=== PATIENT | male | born 1985 | race Caucasian/White ===

== ENCOUNTER 2021-11-14 00:05 | Inpatient (IN) ==
[2021-11-14] MEDS ORDERED: Isovue-370 500 ML BOTTLE IVP ONE (00:52)
[2021-11-14] MEDS ORDERED: 0.9 % Sodium Chloride 1,500 ML IVC SCH (01:00)
[2021-11-14 01:38] LABS: VBG HCO3 26 mEq/L (21-27); VBG PCO2 40 mmHg (41-51); VBG PH 7.43 pH Units (7.32-7.42); VBG PO2 32 mmHg (25-50)
[2021-11-14] MEDS ORDERED: cefTRIAXone 1,000 MG in Water for inj. (sterile) 10 ML IVP ONE (01:42)
[2021-11-14] MEDS ORDERED: Azithromycin 500 MG in 0.9 % Sodium Chloride 250 ML IVPB ONE (01:42)
[2021-11-14] MEDS ORDERED: Vancomycin 1,500 MG/265 ML IV.SOLN IVPB ONE (01:43)
[2021-11-14 01:56] LABS: INR 1.8; Prothrombin Time 19.7 Seconds (9.4-12.1)
[2021-11-14 01:58] LABS: Activated Partial Thrombo Time 38.9 Seconds (26.0-36.0)
[2021-11-14 02:00] LABS: Alanine Aminotransferase 25 Units/L (7-52); Albumin 2.8 g/dL (3.5-5.7); Albumin/Globulin Ratio 0.6 (1.1-2.2); Alkaline Phosphatase 105 Units/L (34-104); Aspartate Amino Transferase 43 Units/L (13-39); BUN/Creatinine Ratio 23 (6-26); Blood Urea Nitrogen 23 mg/dL (6-20); Calcium 7.4 mg/dL (8.6-10.3); Carbon Dioxide 26 mEq/L (23-29); Chloride 81 mEq/L (98-107); Globulin 4.5 g/dL (2.4-3.5); Glucose 130 mg/dL (70-105); Magnesium 2.4 mg/dL (1.6-2.6); Osmolality,Calculated 249 (280-300); Potassium 3.5 mEq/L (3.5-5.1); Sodium 117 mEq/L (136-145); Total Protein 7.3 g/dL (6.4-8.9); Troponin I < 0.03 ng/mL (< 0.04); eGFR For African Americans > 60 (> 60); eGFR For Non-African Americans > 60 (> 60)
[2021-11-14 02:17] LABS: Hematocrit 32.9 % (37.5-50.1); Hemoglobin 11.2 g/dL (12.9-16.9); Mean Corpuscular Hemoglobin 27.5 pg (28.0-33.3); Mean Corpuscular Volume 80.8 fL (83.0-100.0); Mean Platelet Volume 11.6 fL (9.4-12.4); Platelet Count 157 K/mcL (140-400); Red Blood Count 4.07 M/mcL (4.19-5.50); White Blood Count 20.8 K/mcL (4.3-11.1)
[2021-11-14 02:18] LABS: Adenovirus Not Detected (Not Detect); Bordetella Pertussis Not Detected (Not Detect); Chlamydophila pneumoniae Not Detected (Not Detect); Coronavirus 229E Not Detected (Not Detect); Coronavirus HKU1 Not Detected (Not Detect); Coronavirus NL63 Not Detected (Not Detect); Coronavirus OC43 Not Detected (Not Detect); Human Metapneumovirus Not Detected (Not Detect); Human Rhinovirus/Enterovirus Not Detected (Not Detect); Influenza A Subtype 2009 H1 Not Detected (Not Detect); Influenza B Not Detected (Not Detect); Mycoplasma pneumoniae Not Detected (Not Detect); Parainfluenza Virus 1 Not Detected (Not Detect); Parainfluenza Virus 2 Not Detected (Not Detect); Parainfluenza Virus 3 Not Detected (Not Detect); Parainfluenza Virus 4 Not Detected (Not Detect); Respiratory Syncytial Virus Not Detected (Not Detect); SARS-CoV-2 Not Detected (Not Detect)
[2021-11-14 02:22] LABS: Ethanol < 10 mg/dL (Less than 10)
[2021-11-14 03:17] LABS: Lymphocytes # 1.3 K/mcL (0.6-4.6); Neutrophils # 19.6 K/mcL (1.6-8.9)
[2021-11-14 03:18] LABS: Platelet Estimate Normal (Normal); Reactive Lymphocytes Present (Not Present)
[2021-11-14] MEDS ORDERED: Naloxone 0.4 MG/ML INJ IVP PRN (03:21)
[2021-11-14] MEDS ORDERED: Perflutren Lipid Microsphere 1.3 ML in 0.9 % Sodium Chloride 8.7 ML IVP PRN (03:47)
[2021-11-14 04:33] LABS: Bacteria,Urine Few per hpf (None-Few); Bilirubin,Urine Negative (Negative); Blood,Urine Trace (Negative); Clarity,Urine Turbid (Clear); Color,Urine Yellow (Yellow); Glucose,Urine (UA) Normal (Normal); Ketones,Urine Negative (Negative); Leukocyte Esterase,Urine Small (Negative); Mucus,Urine Few per lpf (None-Few); Nitrite,Urine Negative (Negative); PH,Urine 5.5 pH Units (5.0-8.0); Protein,Urine 50 mg/dL (Neg-Trace); Squamous Epithelial Cell,Urine Few per hpf (None-Few); Urobilinogen,Urine Normal (Normal); WBC,Urine 30-50 per hpf (0-3)
[2021-11-14 04:34] LABS: Amphetamine Screen,Urine Negative ng/mL (Cutoff=1000); Barbiturate Screen,Urine Negative ng/mL (Cutoff=200); Benzodiazepines Screen,Urine Negative ng/mL (Cutoff=200); Cannabinoid Screen,Urine Negative ng/mL (Cutoff = 50); Cocaine Screen,Urine Negative ng/mL (Cutoff= 300); Opiate Screen,Urine Negative ng/mL (Cutoff=300); Phencyclidine Screen,Urine Negative ng/mL (Cutoff=25)
[2021-11-14] MEDS ORDERED: Calcium Gluconate 1gm/50mL 1 GM/50 ML BAG IVPB ONE (05:29)
[2021-11-14] MEDS ORDERED: 0.9 % Sodium Chloride 1,000 ML IVC SCH (05:45)
[2021-11-14 05:52] LABS: Chloride,Urine < 15 mEq/L
[2021-11-14 05:55] LABS: Hematocrit 28.5 % (37.5-50.1); Mean Corpuscular HGB Conc 35.1 g/dL (31.6-35.5); Mean Corpuscular Hemoglobin 27.7 pg (28.0-33.3); Mean Corpuscular Volume 78.9 fL (83.0-100.0); Mean Platelet Volume 11.9 fL (9.4-12.4); Neutrophils # 14.2 K/mcL (1.6-8.9); Nucleated Red Blood Cells 0.2 /100 WBC (0); Platelet Count 129 K/mcL (140-400); Red Blood Count 3.61 M/mcL (4.19-5.50); Red Cell Distribution Width 14.7 % (11.5-14.5); White Blood Count 18.2 K/mcL (4.3-11.1)
[2021-11-14 06:02] LABS: INR 1.7; Prothrombin Time 18.8 Seconds (9.4-12.1)
[2021-11-14 06:22] LABS: Lymphocytes # 3.3 K/mcL (0.6-4.6); Monocytes # 0.7 K/mcL (0.0-1.3)
[2021-11-14 06:25] LABS: Platelet Estimate Decreased (Normal)
[2021-11-14 06:46] LABS: Folate 7.4 ng/mL (3.0-16.0); Vitamin B12 849 pg/mL (250-1100)
[2021-11-14 06:48] LABS: Thyroid Stimulating Hormone 1.828 mcIU/mL (0.340-5.600); Troponin I 0.09 ng/mL (< 0.04)
[2021-11-14 07:11] LABS: Magnesium 2.4 mg/dL (1.6-2.6)
[2021-11-14 07:16] LABS: Hepatitis B Surface Antigen Nonreactive (Nonreactive)
[2021-11-14 07:46] LABS: Hepatitis A Antibody IgM Nonreactive (Nonreactive)
[2021-11-14 07:52] LABS: HIV-1&2 Antibody & p24 Ag Nonreactive (Nonreactive)
[2021-11-14] MEDS: *HR* Enoxaparin 40 MG/0.4 ML SYRINGE SQ SCH (08:05)
[2021-11-14 09:28] LABS: Hepatitis C Virus Antibody Reactive (Nonreactive)
[2021-11-14] MEDS: Cefepime HCl 2,000 MG in 0.9 % Sodium Chloride Mini Bag 100 ML IVPB SCH ×2 (10:30→17:50)
[2021-11-14 11:08] LABS: Estimated Average Glucose 114 mg/dl; Hemoglobin A1C 5.6 %
[2021-11-14 12:24] LABS: Rheumatoid Factor < 10 IU/mL (Less than 14)
[2021-11-14 12:30] LABS: BUN/Creatinine Ratio 33 (6-26); Blood Urea Nitrogen 21 mg/dL (6-20); Calcium 7.4 mg/dL (8.6-10.3); Carbon Dioxide 25 mEq/L (23-29); Chloride 92 mEq/L (98-107); Glucose 95 mg/dL (70-105); Osmolality,Calculated 263 (280-300); Potassium 3.8 mEq/L (3.5-5.1); Sodium 125 mEq/L (136-145); Troponin I < 0.03 ng/mL (< 0.04); eGFR For African Americans > 60 (> 60); eGFR For Non-African Americans > 60 (> 60)
[2021-11-14 12:31] LABS: Procalcitonin 2.06 ng/mL (0.00-0.15)
[2021-11-14 13:31] LABS: Complement C3 70 mg/dL (87-200)
[2021-11-14 13:54] LABS: Enterococcus faecalis by PCR Not Detected (Not Detect); Enterococcus faecium by PCR Not Detected (Not Detect); mecA/C & MREJ (MRSA) Gene Not Detected (Not Detect)
[2021-11-14 13:55] LABS: A.calcoaceticus-baumannii cplx Not Detected (Not Detect); Bacteroides fragilis by PCR Not Detected (Not Detect); Candida albicans by PCR Not Detected (Not Detect); Candida auris by PCR Not Detected (Not Detect); Candida glabrata by PCR Not Detected (Not Detect); Candida krusei by PCR Not Detected (Not Detect); Candida parapsilosis by PCR Not Detected (Not Detect); Candida tropicalis by PCR Not Detected (Not Detect); Crypto. neoformans/gattii PCR Not Detected (Not Detect); Enterobacter cloacae Cmplx PCR Not Detected (Not Detect); Enterobacterales by PCR Not Detected (Not Detect); Escherichia coli by PCR Not Detected (Not Detect); Klebs. pneumoniae group by PCR Not Detected (Not Detect); Klebsiella aerogenes by PCR Not Detected (Not Detect); Klebsiella oxytoca by PCR Not Detected (Not Detect); Proteus by PCR Not Detected (Not Detect); Pseudomonas aeruginosa by PCR Not Detected (Not Detect); Salmonella species by PCR Not Detected (Not Detect); Serratia marcescens by PCR Not Detected (Not Detect); Staph epidermidis by PCR Not Detected (Not Detect); Staph lugdunensis by PCR Not Detected (Not Detect); Staphylococcus aureus by PCR DETECTED (Not Detect); Stenotrophomonas maltophilia Not Detected (Not Detect); Streptococcus agalactiae(B)PCR Not Detected (Not Detect); Streptococcus by PCR Not Detected (Not Detect); Streptococcus pneumoniae PCR Not Detected (Not Detect); Streptococcus pyogenes (A) PCR Not Detected (Not Detect)
[2021-11-14] MEDS: Vancomycin 1,500 MG/265 ML IV.SOLN IVPB SCH (14:05)
[2021-11-14 17:51] LABS: BUN/Creatinine Ratio 30 (6-26); Blood Urea Nitrogen 19 mg/dL (6-20); Carbon Dioxide 27 mEq/L (23-29); Chloride 94 mEq/L (98-107); Glucose 124 mg/dL (70-105); Osmolality,Calculated 266 (280-300); Potassium 3.7 mEq/L (3.5-5.1); Sodium 126 mEq/L (136-145); eGFR For African Americans > 60 (> 60); eGFR For Non-African Americans > 60 (> 60)
[2021-11-14 18:45] LABS: VBG HCO3 25 mEq/L (21-27); VBG PCO2 37 mmHg (41-51); VBG PH 7.43 pH Units (7.32-7.42); VBG PO2 140 mmHg (25-50)
[2021-11-14 18:53] LABS: ABG Base Excess 0 mEq/L (-2 to 3); ABG HCO3 24 mEq/L (21-27); ABG Oxygen Saturation 95 % (95-98); ABG PCO2 34 mmHg (35-45); ABG PH 7.45 pH Units (7.32-7.45); ABG PO2 72 mmHg (85-104); ABG TCO2 25 mEq/L (20-26)
[2021-11-14] MEDS: Acetaminophen 325 MG TABLET PO PRN (20:08)
[2021-11-14 23:31] LABS: BUN/Creatinine Ratio 29 (6-26); Blood Urea Nitrogen 23 mg/dL (6-20); Calcium 7.3 mg/dL (8.6-10.3); Carbon Dioxide 24 mEq/L (23-29); Chloride 93 mEq/L (98-107); Glucose 134 mg/dL (70-105); Osmolality,Calculated 262 (280-300); Potassium 3.6 mEq/L (3.5-5.1); Sodium 123 mEq/L (136-145); eGFR For African Americans > 60 (> 60); eGFR For Non-African Americans > 60 (> 60)
[2021-11-15] MEDS: Vancomycin 1,500 MG/265 ML IV.SOLN IVPB SCH (02:42)
[2021-11-15] MEDS: Cefepime HCl 2,000 MG in 0.9 % Sodium Chloride Mini Bag 100 ML IVPB SCH ×2 (02:42→09:17)
[2021-11-15 06:05] LABS: Hematocrit 28.1 % (37.5-50.1); Mean Corpuscular HGB Conc 35.6 g/dL (31.6-35.5); Mean Corpuscular Volume 78.7 fL (83.0-100.0); Mean Platelet Volume 12.1 fL (9.4-12.4); Platelet Count 174 K/mcL (140-400); Red Blood Count 3.57 M/mcL (4.19-5.50); Red Cell Distribution Width 15.2 % (11.5-14.5); White Blood Count 21.2 K/mcL (4.3-11.1)
[2021-11-15 06:14] LABS: INR 1.5; Prothrombin Time 16.6 Seconds (9.4-12.1)
[2021-11-15 06:21] LABS: BUN/Creatinine Ratio 36 (6-26); Blood Urea Nitrogen 25 mg/dL (6-20); Calcium 7.2 mg/dL (8.6-10.3); Carbon Dioxide 22 mEq/L (23-29); Chloride 97 mEq/L (98-107); Glucose 110 mg/dL (70-105); Osmolality,Calculated 267 (280-300); Potassium 3.6 mEq/L (3.5-5.1); Sodium 126 mEq/L (136-145); eGFR For African Americans > 60 (> 60); eGFR For Non-African Americans > 60 (> 60)
[2021-11-15 06:26] LABS: BUN/Creatinine Ratio 36 (6-26); Blood Urea Nitrogen 25 mg/dL (6-20); Calcium 7.1 mg/dL (8.6-10.3); Carbon Dioxide 21 mEq/L (23-29); Chloride 96 mEq/L (98-107); Glucose 107 mg/dL (70-105); Osmolality,Calculated 267 (280-300); Potassium 4.4 mEq/L (3.5-5.1); Sodium 126 mEq/L (136-145); eGFR For African Americans > 60 (> 60); eGFR For Non-African Americans > 60 (> 60)
[2021-11-15] MEDS: *HR* Enoxaparin 40 MG/0.4 ML SYRINGE SQ SCH (09:18)
[2021-11-15] MEDS: Acetaminophen 325 MG TABLET PO PRN ×2 (09:20→17:02)
[2021-11-15] MEDS ORDERED: 0.9 % Sodium Chloride 1,000 ML ONE (10:23)
[2021-11-15 10:41] LABS: Amylase 39 Units/L (29-103); BUN/Creatinine Ratio 32 (6-26); Blood Urea Nitrogen 23 mg/dL (6-20); Calcium 7.1 mg/dL (8.6-10.3); Carbon Dioxide 25 mEq/L (23-29); Chloride 97 mEq/L (98-107); Glucose 114 mg/dL (70-105); Lipase 40 Units/L (11-82); Osmolality,Calculated 267 (280-300); Potassium 3.6 mEq/L (3.5-5.1); Sodium 126 mEq/L (136-145); eGFR For African Americans > 60 (> 60); eGFR For Non-African Americans > 60 (> 60)
[2021-11-15] MEDS: 0.9 % Sodium Chloride 1,000 ML IVC SCH (11:47)
[2021-11-15] MEDS: ceFAZolin 2,000 MG in 0.9 % Sodium Chloride 100 ML IVPB SCH (15:59)
[2021-11-15] MEDS ORDERED: *HR* LORazepam 0.5 MG TABLET PO ONE (17:01)
[2021-11-15 17:36] LABS: Amphetamine Screen,Urine Negative ng/mL (Cutoff=1000); Barbiturate Screen,Urine Negative ng/mL (Cutoff=200); Benzodiazepines Screen,Urine Negative ng/mL (Cutoff=200); Cannabinoid Screen,Urine Negative ng/mL (Cutoff = 50); Cocaine Screen,Urine Negative ng/mL (Cutoff= 300); Opiate Screen,Urine Positive ng/mL (Cutoff=300); Phencyclidine Screen,Urine Negative ng/mL (Cutoff=25)
[2021-11-15 18:15] LABS: Hepatitis B Core IgM Nonreactive (Nonreactive)
[2021-11-16] MEDS: ceFAZolin 2,000 MG in 0.9 % Sodium Chloride 100 ML IVPB SCH ×3 (01:52→15:13)
[2021-11-16] MEDS: 0.9 % Sodium Chloride 1,000 ML IVC SCH ×2 (01:52→15:12)
[2021-11-16 04:16] LABS: Basophils % 0.2 %; Eosinophils % 0.2 %; Hematocrit 25.5 % (37.5-50.1); Hemoglobin 8.6 g/dL (12.9-16.9); Immature Granulocytes % 1.8 % (0-4); Lymphocytes # 2.6 K/mcL (0.6-4.6); Lymphocytes % 14.8 %; Mean Corpuscular HGB Conc 33.7 g/dL (31.6-35.5); Mean Corpuscular Volume 79.9 fL (83.0-100.0); Mean Platelet Volume 10.9 fL (9.4-12.4); Monocytes # 0.9 K/mcL (0.0-1.3); Monocytes % 5.1 %; Neutrophils # 13.9 K/mcL (1.6-8.9); Platelet Count 231 K/mcL (140-400); Red Blood Count 3.19 M/mcL (4.19-5.50); Red Cell Distribution Width 15.7 % (11.5-14.5); Segmented Neutrophils % 77.9 %; White Blood Count 17.8 K/mcL (4.3-11.1)
[2021-11-16 04:39] LABS: BUN/Creatinine Ratio 25 (6-26); Blood Urea Nitrogen 18 mg/dL (6-20); Calcium 6.9 mg/dL (8.6-10.3); Carbon Dioxide 22 mEq/L (23-29); Chloride 98 mEq/L (98-107); Glucose 103 mg/dL (70-105); Hypochromasia Present (Not Present); Osmolality,Calculated 266 (280-300); Potassium 3.4 mEq/L (3.5-5.1); Sodium 127 mEq/L (136-145); eGFR For African Americans > 60 (> 60); eGFR For Non-African Americans > 60 (> 60)
[2021-11-16 04:40] LABS: Albumin 1.9 g/dL (3.5-5.7); Albumin/Globulin Ratio 0.5 (1.1-2.2); Bilirubin,Direct 0.2 mg/dL (0.0-0.2); Bilirubin,Indirect 0.5 mg/dL (0.0-1.0); Bilirubin,Total 0.7 mg/dL (0.3-1.0); Platelet Estimate Normal (Normal); Reactive Lymphocytes Present (Not Present); Total Protein 5.9 g/dL (6.4-8.9)
[2021-11-16] MEDS ORDERED: *HR* LORazepam 0.5 MG TABLET PO ONE (08:48)
[2021-11-16] MEDS: *HR* Enoxaparin 40 MG/0.4 ML SYRINGE SQ SCH (09:36)
[2021-11-16] MEDS ORDERED: Acetaminophen IV 1,000 MG/100 ML BAG IVPB ONE (10:26)
[2021-11-16] MEDS: *HR* LORazepam 1 MG TABLET PO SCH ×2 (15:14→21:17)
[2021-11-16] MEDS ORDERED: cloNIDine HCL 0.1 MG TABLET PO PRN (17:31)
[2021-11-16] MEDS: cloNIDine HCL 0.1 MG TABLET PO PRN ×2 (17:58→20:05)
[2021-11-16] MEDS: *HR* LORazepam 2 MG/ML VIAL IVP PRN (18:37)
[2021-11-16] MEDS: Acetaminophen 325 MG TABLET PO PRN (18:41)
[2021-11-16] MEDS ORDERED: Calcium Gluconate 1gm/50mL 1 GM/50 ML BAG IVPB ONE (20:30)
[2021-11-17] MEDS: ceFAZolin 2,000 MG in 0.9 % Sodium Chloride 100 ML IVPB SCH ×3 (00:02→16:31)
[2021-11-17] MEDS: 0.9 % Sodium Chloride 1,000 ML IVC SCH ×2 (04:18→16:31)
[2021-11-17 04:33] LABS: Basophils % 0.2 %; Eosinophils # 0.1 K/mcL (0.0-0.6); Eosinophils % 0.3 %; Hematocrit 25.5 % (37.5-50.1); Hemoglobin 8.4 g/dL (12.9-16.9); Immature Granulocytes % 1.3 % (0-4); Lymphocytes # 2.5 K/mcL (0.6-4.6); Lymphocytes % 15.9 %; Mean Corpuscular HGB Conc 32.9 g/dL (31.6-35.5); Mean Corpuscular Hemoglobin 26.6 pg (28.0-33.3); Mean Corpuscular Volume 80.7 fL (83.0-100.0); Mean Platelet Volume 10.1 fL (9.4-12.4); Monocytes # 0.6 K/mcL (0.0-1.3); Monocytes % 3.7 %; Platelet Count 318 K/mcL (140-400); Red Blood Count 3.16 M/mcL (4.19-5.50); Red Cell Distribution Width 15.6 % (11.5-14.5); Segmented Neutrophils % 78.6 %; White Blood Count 15.7 K/mcL (4.3-11.1)
[2021-11-17 04:39] LABS: Neutrophils # 12.3 K/mcL (1.6-8.9)
[2021-11-17 04:42] LABS: INR 1.5; Prothrombin Time 16.9 Seconds (9.4-12.1)
[2021-11-17 04:44] LABS: Activated Partial Thrombo Time 39.5 Seconds (26.0-36.0)
[2021-11-17 04:55] LABS: BUN/Creatinine Ratio 23 (6-26); Blood Urea Nitrogen 18 mg/dL (6-20); Calcium 6.7 mg/dL (8.6-10.3); Carbon Dioxide 21 mEq/L (23-29); Chloride 103 mEq/L (98-107); Glucose 102 mg/dL (70-105); Osmolality,Calculated 264 (280-300); Platelet Estimate Normal (Normal); Potassium 4.1 mEq/L (3.5-5.1); Reactive Lymphocytes Present (Not Present); Sodium 126 mEq/L (136-145); eGFR For African Americans > 60 (> 60); eGFR For Non-African Americans > 60 (> 60)
[2021-11-17] MEDS: Acetaminophen 325 MG TABLET PO PRN (05:03)
[2021-11-17] MEDS: *HR* LORazepam 2 MG/ML VIAL IVP PRN (05:26)
[2021-11-17] MEDS ORDERED: *HR* LORazepam 2 MG/ML VIAL IVP ONE (06:23)
[2021-11-17] MEDS ORDERED: Norepinephrine 4 MG in 0.9 % Sodium Chloride 250 ML IVC PRN (07:45)
[2021-11-17] MEDS ORDERED: del Nido Cardioplegia Solution PF SCH (07:45)
[2021-11-17] MEDS ORDERED: Heparin 15,000 UNIT in 0.9 % Sodium Chloride 500 ML IV ONE (07:45)
[2021-11-17] MEDS ORDERED: Buckersberg's Blood Cardioplegia PF SCH (07:45)
[2021-11-17] MEDS ORDERED: del Nido Cardioplegia Solution PF ONE (08:00)
[2021-11-17] MEDS: *HR* LORazepam 1 MG TABLET PO SCH (08:28)
[2021-11-17] MEDS: *HR* Enoxaparin 40 MG/0.4 ML SYRINGE SQ SCH (08:28)
[2021-11-17 10:22] LABS: Alanine Aminotransferase 18 Units/L (7-52); Albumin 1.8 g/dL (3.5-5.7); Albumin/Globulin Ratio 0.5 (1.1-2.2); Alkaline Phosphatase 70 Units/L (34-104); Aspartate Amino Transferase 43 Units/L (13-39); Bilirubin,Direct 0.3 mg/dL (0.0-0.2); Bilirubin,Indirect 0.4 mg/dL (0.0-1.0); Bilirubin,Total 0.7 mg/dL (0.3-1.0); Globulin 3.9 g/dL (2.4-3.5); Total Protein 5.7 g/dL (6.4-8.9)
[2021-11-17 12:39] LABS: ANA IgG by ELISA NONE DETECTED (None Detected); Kappa Qnt Free Light Chains 112.18 mg/L (3.30-19.40); Lambda Qnt Free Light Chains 101.51 mg/L (5.71-26.30)
[2021-11-17] MEDS: Lactobacillus 1 EACH CAP.SPRINK PO SCH (20:48)
[2021-11-17] MEDS ORDERED: Dextrose 4 GM Chewable Tablets PO PRN ×2 (21:53)
[2021-11-17] MEDS ORDERED: D5% in Water 1,000 ML IVC PRN (21:53)
[2021-11-17] MEDS ORDERED: *HR* Dextrose 50 % in Water (Syg) 50 ML SYRINGE IVP PRN (21:53)
[2021-11-18] MEDS: ceFAZolin 2,000 MG in 0.9 % Sodium Chloride 100 ML IVPB SCH ×4 (00:42→23:11)
[2021-11-18 03:15] LABS: Basophils % 0.1 %; Eosinophils # 0.1 K/mcL (0.0-0.6); Eosinophils % 0.4 %; Hematocrit 24.7 % (37.5-50.1); Hemoglobin 8.4 g/dL (12.9-16.9); Immature Granulocytes % 1.4 % (0-4); Lymphocytes # 2.7 K/mcL (0.6-4.6); Lymphocytes % 19.1 %; Mean Corpuscular Hemoglobin 27.8 pg (28.0-33.3); Mean Corpuscular Volume 81.8 fL (83.0-100.0); Mean Platelet Volume 10.5 fL (9.4-12.4); Monocytes # 0.5 K/mcL (0.0-1.3); Monocytes % 3.9 %; Platelet Count 389 K/mcL (140-400); Red Blood Count 3.02 M/mcL (4.19-5.50); Segmented Neutrophils % 75.1 %; White Blood Count 13.9 K/mcL (4.3-11.1)
[2021-11-18 03:23] LABS: Neutrophils # 10.4 K/mcL (1.6-8.9)
[2021-11-18 03:32] LABS: BUN/Creatinine Ratio 30 (6-26); Blood Urea Nitrogen 21 mg/dL (6-20); Calcium 6.9 mg/dL (8.6-10.3); Carbon Dioxide 20 mEq/L (23-29); Chloride 103 mEq/L (98-107); Glucose 100 mg/dL (70-105); Osmolality,Calculated 273 (280-300); Potassium 4.3 mEq/L (3.5-5.1); Sodium 130 mEq/L (136-145); eGFR For African Americans > 60 (> 60); eGFR For Non-African Americans > 60 (> 60)
[2021-11-18 04:06] LABS: Reactive Lymphocytes Present (Not Present)
[2021-11-18 04:07] LABS: Hypochromasia Present (Not Present); Platelet Estimate Normal (Normal); Toxic Granulation Present (Not Present)
[2021-11-18] MEDS: 0.9 % Sodium Chloride 1,000 ML IVC SCH ×2 (06:34→19:47)
[2021-11-18] MEDS: Lactobacillus 1 EACH CAP.SPRINK PO SCH ×2 (09:41→23:10)
[2021-11-18] MEDS: Chlorhexidine Rinse 15 ML MOUTHWASH MM SCH ×2 (09:41→20:29)
[2021-11-18] MEDS: Nicotine 21 MG PATCH.TD24 TD SCH (09:41)
[2021-11-18] MEDS: *HR* Enoxaparin 40 MG/0.4 ML SYRINGE SQ SCH (09:41)
[2021-11-18] MEDS: *HR* LORazepam 2 MG/ML VIAL IVP PRN (11:32)
[2021-11-18] MEDS: cloNIDine HCL 0.1 MG TABLET PO PRN (15:54)
[2021-11-18] MEDS: Acetaminophen 325 MG TABLET PO PRN (20:27)
[2021-11-19 01:36] LABS: ANCA IFA Titer <1:20 (<1:20)
[2021-11-19] MEDS: cloNIDine HCL 0.1 MG TABLET PO PRN ×4 (01:46→17:39)
[2021-11-19 05:33] LABS: Hematocrit 28.4 % (37.5-50.1); Hemoglobin 9.3 g/dL (12.9-16.9); Immature Granulocytes % 1.2 % (0-4); Mean Corpuscular HGB Conc 32.7 g/dL (31.6-35.5); Mean Corpuscular Hemoglobin 27.1 pg (28.0-33.3); Mean Corpuscular Volume 82.8 fL (83.0-100.0); Mean Platelet Volume 9.7 fL (9.4-12.4); Platelet Count 443 K/mcL (140-400); Red Blood Count 3.43 M/mcL (4.19-5.50); Red Cell Distribution Width 16.2 % (11.5-14.5); Segmented Neutrophils % 78.6 %
[2021-11-19 05:34] LABS: Basophils % 0.2 %; Eosinophils # 0.1 K/mcL (0.0-0.6); Eosinophils % 0.5 %; Lymphocytes # 2.5 K/mcL (0.6-4.6); Lymphocytes % 16.4 %; Monocytes # 0.5 K/mcL (0.0-1.3); Monocytes % 3.1 %; Neutrophils # 11.8 K/mcL (1.6-8.9)
[2021-11-19 05:57] LABS: Anisocytosis 1+ (Not Present); Hypochromasia Present (Not Present); Platelet Estimate Normal (Normal)
[2021-11-19 06:26] LABS: BUN/Creatinine Ratio 39 (6-26); Blood Urea Nitrogen 27 mg/dL (6-20); Calcium 6.8 mg/dL (8.6-10.3); Carbon Dioxide 20 mEq/L (23-29); Chloride 105 mEq/L (98-107); Glucose 116 mg/dL (70-105); Osmolality,Calculated 276 (280-300); Potassium 4.2 mEq/L (3.5-5.1); Sodium 130 mEq/L (136-145); eGFR For African Americans > 60 (> 60); eGFR For Non-African Americans > 60 (> 60)
[2021-11-19] MEDS: *HR* Enoxaparin 40 MG/0.4 ML SYRINGE SQ SCH (08:01)
[2021-11-19] MEDS: Chlorhexidine Rinse 15 ML MOUTHWASH MM SCH ×2 (08:02→20:19)
[2021-11-19] MEDS: Lactobacillus 1 EACH CAP.SPRINK PO SCH ×2 (08:02→20:19)
[2021-11-19] MEDS: ceFAZolin 2,000 MG in 0.9 % Sodium Chloride 100 ML IVPB SCH ×3 (08:40→22:52)
[2021-11-19] MEDS: 0.9 % Sodium Chloride 1,000 ML IVC SCH (08:40)
[2021-11-19] MEDS: Nicotine 21 MG PATCH.TD24 TD SCH (09:00)
[2021-11-19] MEDS ORDERED: *HR* LORazepam 2 MG/ML VIAL IVP PRN (10:29)
[2021-11-19 12:27] LABS: C-Reactive Protein 79 mg/L (Less than 10)
[2021-11-19] MEDS: Ondansetron 4 MG/2 ML VIAL IVP PRN (17:39)
[2021-11-20 00:51] LABS: Basophils % 0.1 %; Eosinophils # 0.1 K/mcL (0.0-0.6); Eosinophils % 0.7 %; Hematocrit 24.2 % (37.5-50.1); Hemoglobin 7.9 g/dL (12.9-16.9); Immature Granulocytes % 1.1 % (0-4); Lymphocytes # 2.5 K/mcL (0.6-4.6); Lymphocytes % 21.6 %; Mean Corpuscular HGB Conc 32.6 g/dL (31.6-35.5); Mean Corpuscular Hemoglobin 27.3 pg (28.0-33.3); Mean Corpuscular Volume 83.7 fL (83.0-100.0); Mean Platelet Volume 9.7 fL (9.4-12.4); Monocytes # 0.4 K/mcL (0.0-1.3); Monocytes % 3.6 %; Neutrophils # 8.5 K/mcL (1.6-8.9); Platelet Count 364 K/mcL (140-400); Red Blood Count 2.89 M/mcL (4.19-5.50); Red Cell Distribution Width 16.4 % (11.5-14.5); Segmented Neutrophils % 72.9 %; White Blood Count 11.6 K/mcL (4.3-11.1)
[2021-11-20 01:08] LABS: BUN/Creatinine Ratio 31 (6-26); Blood Urea Nitrogen 18 mg/dL (6-20); Calcium 6.8 mg/dL (8.6-10.3); Carbon Dioxide 21 mEq/L (23-29); Chloride 105 mEq/L (98-107); Glucose 114 mg/dL (70-105); Osmolality,Calculated 275 (280-300); Potassium 4.4 mEq/L (3.5-5.1); Sodium 131 mEq/L (136-145); eGFR For African Americans > 60 (> 60); eGFR For Non-African Americans > 60 (> 60)
[2021-11-20] MEDS: ceFAZolin 2,000 MG in 0.9 % Sodium Chloride 100 ML IVPB SCH ×2 (08:28→17:26)
[2021-11-20] MEDS: Lactobacillus 1 EACH CAP.SPRINK PO SCH ×2 (08:28→20:08)
[2021-11-20] MEDS: *HR* Enoxaparin 40 MG/0.4 ML SYRINGE SQ SCH (08:28)
[2021-11-20] MEDS: Chlorhexidine Rinse 15 ML MOUTHWASH MM SCH ×2 (08:28→21:00)
[2021-11-20] MEDS: Nicotine 21 MG PATCH.TD24 TD SCH (08:30)
[2021-11-20] MEDS ORDERED: Simethicone 80 MG TAB.CHEW PO PRN (09:22)
[2021-11-20 11:09] LABS: ANCA IFA Pattern NONE DETECTED (None Detected); Serine Protease-3 Antibody 1 AU/mL (0-19)
[2021-11-20 12:26] LABS: Hematocrit 25.3 % (37.5-50.1); Hemoglobin 8.2 g/dL (12.9-16.9)
[2021-11-20] MEDS: cloNIDine HCL 0.1 MG TABLET PO PRN (20:08)
[2021-11-20] MEDS ORDERED: hydrOXYzine pamoate 25 MG CAPSULE PO ONE (23:25)
[2021-11-21] MEDS: ceFAZolin 2,000 MG in 0.9 % Sodium Chloride 100 ML IVPB SCH ×3 (00:02→15:28)
[2021-11-21 04:03] LABS: Basophils % 0.2 %; Eosinophils # 0.1 K/mcL (0.0-0.6); Eosinophils % 0.6 %; Hemoglobin 8.3 g/dL (12.9-16.9); Immature Granulocytes % 1.1 % (0-4); Lymphocytes # 2.9 K/mcL (0.6-4.6); Lymphocytes % 23.5 %; Mean Corpuscular HGB Conc 33.2 g/dL (31.6-35.5); Mean Corpuscular Hemoglobin 27.5 pg (28.0-33.3); Mean Corpuscular Volume 82.8 fL (83.0-100.0); Mean Platelet Volume 9.7 fL (9.4-12.4); Monocytes # 0.4 K/mcL (0.0-1.3); Monocytes % 3.3 %; Neutrophils # 8.8 K/mcL (1.6-8.9); Nucleated Red Blood Cells 0.6 /100 WBC (0); Platelet Count 376 K/mcL (140-400); Red Blood Count 3.02 M/mcL (4.19-5.50); Red Cell Distribution Width 16.3 % (11.5-14.5); Segmented Neutrophils % 71.3 %; White Blood Count 12.4 K/mcL (4.3-11.1)
[2021-11-21 04:13] LABS: BUN/Creatinine Ratio 20 (6-26); Blood Urea Nitrogen 10 mg/dL (6-20); Calcium 7.4 mg/dL (8.6-10.3); Carbon Dioxide 22 mEq/L (23-29); Chloride 104 mEq/L (98-107); Glucose 96 mg/dL (70-105); Osmolality,Calculated 271 (280-300); Potassium 4.8 mEq/L (3.5-5.1); Sodium 131 mEq/L (136-145); eGFR For African Americans > 60 (> 60); eGFR For Non-African Americans > 60 (> 60)
[2021-11-21] MEDS: Lactobacillus 1 EACH CAP.SPRINK PO SCH ×2 (09:16→21:22)
[2021-11-21] MEDS: Nicotine 21 MG PATCH.TD24 TD SCH (09:16)
[2021-11-21] MEDS: *HR* Enoxaparin 40 MG/0.4 ML SYRINGE SQ SCH (09:17)
[2021-11-21] MEDS: Chlorhexidine Rinse 15 ML MOUTHWASH MM SCH ×2 (09:17→21:22)
[2021-11-22] MEDS: ceFAZolin 2,000 MG in 0.9 % Sodium Chloride 100 ML IVPB SCH ×3 (00:24→16:16)
[2021-11-22 05:26] LABS: Basophils % 0.2 %; Eosinophils # 0.1 K/mcL (0.0-0.6); Eosinophils % 0.7 %; Hematocrit 22.7 % (37.5-50.1); Hemoglobin 7.4 g/dL (12.9-16.9); Immature Granulocytes % 0.9 % (0-4); Lymphocytes # 2.4 K/mcL (0.6-4.6); Lymphocytes % 19.5 %; Mean Corpuscular HGB Conc 32.6 g/dL (31.6-35.5); Mean Corpuscular Hemoglobin 27.8 pg (28.0-33.3); Mean Corpuscular Volume 85.3 fL (83.0-100.0); Monocytes # 0.5 K/mcL (0.0-1.3); Monocytes % 3.9 %; Neutrophils # 9.2 K/mcL (1.6-8.9); Platelet Count 402 K/mcL (140-400); Red Blood Count 2.66 M/mcL (4.19-5.50); Red Cell Distribution Width 16.7 % (11.5-14.5); Segmented Neutrophils % 74.8 %; White Blood Count 12.3 K/mcL (4.3-11.1)
[2021-11-22 08:32] LABS: BUN/Creatinine Ratio 16 (6-26); Blood Urea Nitrogen 9 mg/dL (6-20); Calcium 7.2 mg/dL (8.6-10.3); Carbon Dioxide 27 mEq/L (23-29); Chloride 103 mEq/L (98-107); Glucose 103 mg/dL (70-105); Osmolality,Calculated 275 (280-300); Potassium 4.3 mEq/L (3.5-5.1); Sodium 133 mEq/L (136-145); eGFR For African Americans > 60 (> 60); eGFR For Non-African Americans > 60 (> 60)
[2021-11-22] MEDS: Lactobacillus 1 EACH CAP.SPRINK PO SCH ×2 (08:35→20:20)
[2021-11-22] MEDS: *HR* Enoxaparin 40 MG/0.4 ML SYRINGE SQ SCH (08:36)
[2021-11-22] MEDS: Chlorhexidine Rinse 15 ML MOUTHWASH MM SCH (08:36)
[2021-11-22] MEDS: Nicotine 21 MG PATCH.TD24 TD SCH (08:38)
[2021-11-22] MEDS: Ondansetron 4 MG/2 ML VIAL IVP PRN (11:22)
[2021-11-22 17:35] LABS: Hematocrit 33.5 % (37.5-50.1)
[2021-11-22 17:37] LABS: Hemoglobin 11.1 g/dL (12.9-16.9)
[2021-11-23] MEDS: ceFAZolin 2,000 MG in 0.9 % Sodium Chloride 100 ML IVPB SCH ×3 (00:12→16:10)
[2021-11-23 01:48] LABS: Basophils # 0.1 K/mcL (0.0-0.2); Basophils % 0.3 %; Eosinophils % 0.1 %; Hemoglobin 9.3 g/dL (12.9-16.9); Immature Granulocytes % 1.6 % (0-4); Lymphocytes # 2.7 K/mcL (0.6-4.6); Lymphocytes % 14.6 %; Mean Corpuscular HGB Conc 33.2 g/dL (31.6-35.5); Mean Corpuscular Hemoglobin 28.2 pg (28.0-33.3); Mean Corpuscular Volume 84.8 fL (83.0-100.0); Mean Platelet Volume 10.4 fL (9.4-12.4); Monocytes # 0.6 K/mcL (0.0-1.3); Monocytes % 3.4 %; Neutrophils # 14.9 K/mcL (1.6-8.9); Platelet Count 515 K/mcL (140-400); White Blood Count 18.6 K/mcL (4.3-11.1)
[2021-11-23 01:51] LABS: BUN/Creatinine Ratio 23 (6-26); Blood Urea Nitrogen 15 mg/dL (6-20); Calcium 7.2 mg/dL (8.6-10.3); Carbon Dioxide 23 mEq/L (23-29); Chloride 102 mEq/L (98-107); Glucose 105 mg/dL (70-105); Osmolality,Calculated 275 (280-300); Sodium 132 mEq/L (136-145); eGFR For African Americans > 60 (> 60); eGFR For Non-African Americans > 60 (> 60)
[2021-11-23] MEDS: Lactobacillus 1 EACH CAP.SPRINK PO SCH ×2 (08:31→20:55)
[2021-11-23] MEDS: *HR* Enoxaparin 40 MG/0.4 ML SYRINGE SQ SCH (08:34)
[2021-11-23] MEDS: Nicotine 21 MG PATCH.TD24 TD SCH (08:34)
[2021-11-24] MEDS: ceFAZolin 2,000 MG in 0.9 % Sodium Chloride 100 ML IVPB SCH ×3 (00:13→17:15)
[2021-11-24 00:48] LABS: Basophils % 0.1 %; Eosinophils # 0.1 K/mcL (0.0-0.6); Eosinophils % 0.8 %; Hematocrit 23.5 % (37.5-50.1); Immature Granulocytes % 0.9 % (0-4); Lymphocytes % 21.6 %; Mean Corpuscular HGB Conc 32.3 g/dL (31.6-35.5); Mean Corpuscular Hemoglobin 27.9 pg (28.0-33.3); Mean Corpuscular Volume 86.4 fL (83.0-100.0); Mean Platelet Volume 9.8 fL (9.4-12.4); Monocytes # 0.7 K/mcL (0.0-1.3); Monocytes % 4.9 %; Neutrophils # 9.9 K/mcL (1.6-8.9); Platelet Count 497 K/mcL (140-400); Red Blood Count 2.72 M/mcL (4.19-5.50); Red Cell Distribution Width 17.3 % (11.5-14.5); Segmented Neutrophils % 71.7 %; White Blood Count 13.8 K/mcL (4.3-11.1)
[2021-11-24 00:49] LABS: Hemoglobin 7.6 g/dL (12.9-16.9)
[2021-11-24 01:04] LABS: BUN/Creatinine Ratio 24 (6-26); Blood Urea Nitrogen 14 mg/dL (6-20); Calcium 7.2 mg/dL (8.6-10.3); Carbon Dioxide 27 mEq/L (23-29); Chloride 103 mEq/L (98-107); Glucose 102 mg/dL (70-105); Osmolality,Calculated 277 (280-300); Potassium 4.2 mEq/L (3.5-5.1); Sodium 133 mEq/L (136-145); eGFR For African Americans > 60 (> 60); eGFR For Non-African Americans > 60 (> 60)
[2021-11-24 06:30] LABS: Basophils % 0.1 %; Eosinophils # 0.1 K/mcL (0.0-0.6); Eosinophils % 0.7 %; Hematocrit 23.9 % (37.5-50.1); Hemoglobin 7.6 g/dL (12.9-16.9); Immature Granulocytes % 0.7 % (0-4); Immature Platelets 2.8 % (1.1-6.1); Lymphocytes # 2.6 K/mcL (0.6-4.6); Lymphocytes % 21.8 %; Mean Corpuscular HGB Conc 31.8 g/dL (31.6-35.5); Mean Corpuscular Hemoglobin 27.3 pg (28.0-33.3); Mean Platelet Volume 10.3 fL (9.4-12.4); Monocytes # 0.6 K/mcL (0.0-1.3); Monocytes % 4.8 %; Neutrophils # 8.7 K/mcL (1.6-8.9); Platelet Count 435 K/mcL (140-400); Red Blood Count 2.78 M/mcL (4.19-5.50); Red Cell Distribution Width 17.2 % (11.5-14.5); Segmented Neutrophils % 71.9 %; White Blood Count 12.1 K/mcL (4.3-11.1)
[2021-11-24 06:51] LABS: BUN/Creatinine Ratio 24 (6-26); Blood Urea Nitrogen 12 mg/dL (6-20); Calcium 7.4 mg/dL (8.6-10.3); Carbon Dioxide 26 mEq/L (23-29); Chloride 102 mEq/L (98-107); Glucose 101 mg/dL (70-105); Osmolality,Calculated 274 (280-300); Potassium 4.1 mEq/L (3.5-5.1); Sodium 132 mEq/L (136-145); eGFR For African Americans > 60 (> 60); eGFR For Non-African Americans > 60 (> 60)
[2021-11-24 08:48] LABS: INR 1.3; Prothrombin Time 14.5 Seconds (9.4-12.1)
[2021-11-24 08:51] LABS: Activated Partial Thrombo Time 34.1 Seconds (26.0-36.0)
[2021-11-24] MEDS: Lactobacillus 1 EACH CAP.SPRINK PO SCH ×2 (10:10→20:36)
[2021-11-24] MEDS: Nicotine 21 MG PATCH.TD24 TD SCH (10:11)
[2021-11-24] MEDS: *HR* Enoxaparin 40 MG/0.4 ML SYRINGE SQ SCH (10:11)
[2021-11-24 14:53] LABS: Hematocrit 25.7 % (37.5-50.1)
[2021-11-24 16:10] LABS: Cholesterol 96 mg/dL (< 200); HDL Cholesterol 24 mg/dL (40-59); LDL Cholesterol,Calculated 46 mg/dL (< 100); Triglycerides 131 mg/dL (< 150)
[2021-11-24] MEDS ORDERED: Chlorhexidine Rinse 15 ML MOUTHWASH MM SCH (21:00)
[2021-11-24 21:04] LABS: Hematocrit 22.8 % (37.5-50.1); Hemoglobin 7.4 g/dL (12.9-16.9); Immature Granulocytes % 0.6 % (0-4); Lymphocytes % 21.2 %; Mean Corpuscular HGB Conc 32.5 g/dL (31.6-35.5); Mean Corpuscular Hemoglobin 27.6 pg (28.0-33.3); Mean Corpuscular Volume 85.1 fL (83.0-100.0); Mean Platelet Volume 9.6 fL (9.4-12.4); Platelet Count 493 K/mcL (140-400); Red Blood Count 2.68 M/mcL (4.19-5.50); Red Cell Distribution Width 17.4 % (11.5-14.5); Segmented Neutrophils % 72.3 %; White Blood Count 13.9 K/mcL (4.3-11.1)
[2021-11-24 21:05] LABS: Basophils % 0.2 %; Eosinophils # 0.1 K/mcL (0.0-0.6); Eosinophils % 0.7 %; Monocytes # 0.7 K/mcL (0.0-1.3); Neutrophils # 10.1 K/mcL (1.6-8.9)
[2021-11-24 21:11] LABS: INR 1.4; Prothrombin Time 15.7 Seconds (9.4-12.1)
[2021-11-24 21:14] LABS: Activated Partial Thrombo Time 36.8 Seconds (26.0-36.0)
[2021-11-24 21:20] LABS: BUN/Creatinine Ratio 15 (6-26); Blood Urea Nitrogen 9 mg/dL (6-20); Calcium 7.2 mg/dL (8.6-10.3); Carbon Dioxide 26 mEq/L (23-29); Chloride 102 mEq/L (98-107); Glucose 111 mg/dL (70-105); Osmolality,Calculated 275 (280-300); Potassium 3.9 mEq/L (3.5-5.1); Sodium 133 mEq/L (136-145); eGFR For African Americans > 60 (> 60); eGFR For Non-African Americans > 60 (> 60)
[2021-11-24] MEDS ORDERED: Simethicone 80 MG TAB.CHEW PO PRN (23:49)
[2021-11-24] MEDS ORDERED: Naloxone 0.4 MG/ML INJ IVP PRN (23:49)
[2021-11-24] MEDS ORDERED: Dextrose 4 GM Chewable Tablets PO PRN ×2 (23:49)
[2021-11-24] MEDS ORDERED: Acetaminophen 325 MG TABLET PO PRN (23:49)
[2021-11-24] MEDS ORDERED: Ondansetron 4 MG/2 ML VIAL IVP PRN (23:49)
[2021-11-24] MEDS ORDERED: D5% in Water 1,000 ML IVC PRN (23:49)
[2021-11-24] MEDS ORDERED: Perflutren Lipid Microsphere 1.3 ML in 0.9 % Sodium Chloride 8.7 ML IVP PRN (23:49)
[2021-11-25] MEDS: ceFAZolin 2,000 MG in 0.9 % Sodium Chloride 100 ML IVPB SCH ×4 (00:48→23:06)
[2021-11-25 03:53] LABS: Hematocrit 23.2 % (37.5-50.1); Hemoglobin 7.2 g/dL (12.9-16.9); Mean Corpuscular Hemoglobin 27.4 pg (28.0-33.3); Mean Corpuscular Volume 88.2 fL (83.0-100.0); Platelet Count 446 K/mcL (140-400); Red Blood Count 2.63 M/mcL (4.19-5.50); Red Cell Distribution Width 17.6 % (11.5-14.5); White Blood Count 11.7 K/mcL (4.3-11.1)
[2021-11-25 03:54] LABS: Basophils % 0.2 %; Eosinophils # 0.1 K/mcL (0.0-0.6); Eosinophils % 0.9 %; Immature Granulocytes % 0.6 % (0-4); Lymphocytes # 2.8 K/mcL (0.6-4.6); Lymphocytes % 23.6 %; Mean Platelet Volume 9.7 fL (9.4-12.4); Monocytes # 0.6 K/mcL (0.0-1.3); Monocytes % 5.3 %; Neutrophils # 8.1 K/mcL (1.6-8.9); Segmented Neutrophils % 69.4 %
[2021-11-25 04:01] LABS: INR 1.4; Prothrombin Time 15.9 Seconds (9.4-12.1)
[2021-11-25 04:04] LABS: Activated Partial Thrombo Time 34.5 Seconds (26.0-36.0)
[2021-11-25 04:14] LABS: BUN/Creatinine Ratio 15 (6-26); Blood Urea Nitrogen 8 mg/dL (6-20); Calcium 7.3 mg/dL (8.6-10.3); Carbon Dioxide 27 mEq/L (23-29); Chloride 102 mEq/L (98-107); Glucose 100 mg/dL (70-105); Osmolality,Calculated 274 (280-300); Potassium 3.8 mEq/L (3.5-5.1); Sodium 133 mEq/L (136-145); eGFR For African Americans > 60 (> 60); eGFR For Non-African Americans > 60 (> 60)
[2021-11-25] MEDS ORDERED: Amiodarone Premix 0 MG/0 ML BAG IVC ONE (05:27)
[2021-11-25] MEDS ORDERED: Heparin 1,000 UNITS/500 mL 500 ML ONE (05:59)
[2021-11-25] MEDS ORDERED: Isovue-300 50ML VIAL ONE (06:00)
[2021-11-25] MEDS ORDERED: Vancomycin 1,250 MG/262.5 ML IV.SOLN IVPB ONE ×2 (06:00)
[2021-11-25] MEDS ORDERED: Aspirin 81 MG TAB.CHEW PO ONE ×2 (06:00)
[2021-11-25] MEDS ORDERED: DOBUTamine 1,000 MG/250 ML BAG ONE (06:01)
[2021-11-25] MEDS ORDERED: NiCARdipine 2.5 MG/10 ML Syringe IVPB ONE (06:01)
[2021-11-25] MEDS ORDERED: *HR* Midazolam HCl 5 MG/5 ML VIAL IVP ONE (06:12)
[2021-11-25] MEDS ORDERED: *HR* FentaNYL (PF) 1,000 MCG/20 ML VIAL ONE (06:12)
[2021-11-25] MEDS ORDERED: *HR* Rocuronium Bromide 50 MG/5 ML VIAL ONE (06:13)
[2021-11-25] MEDS ORDERED: *HR* Norepinephrine 4 MG/4 ML VIAL IVC ONE (06:13)
[2021-11-25] MEDS ORDERED: niCARdipine 20 MG/200 ML MLS IVC ONE (06:13)
[2021-11-25] MEDS ORDERED: *HR* Etomidate 20 MG/10 ML AMPUL IVP ONE (06:15)
[2021-11-25] MEDS ORDERED: EPINEPHrine 1 MG/ML VIAL ONE (06:15)
[2021-11-25] MEDS ORDERED: Tranexamic Acid 1,000 MG/10 ML VIAL ONE (06:15)
[2021-11-25] MEDS ORDERED: Protamine Sulfate 250 MG/25 ML VIAL IVP ONE (06:16)
[2021-11-25] MEDS ORDERED: Sodium Bicarbonate 10 MEQ, Potassium Chloride 80 MEQ in CARDIOPLEGIC SOLUTION NO.1 1,00... PF SCH (07:45)
[2021-11-25] MEDS ORDERED: del Nido Cardioplegia Solution PF ONE (07:45)
[2021-11-25] MEDS ORDERED: Heparin 15,000 UNIT in 0.9 % Sodium Chloride 500 ML IV ONE ×4 (07:45)
[2021-11-25] MEDS ORDERED: del Nido Cardioplegia Solution PF SCH (07:45)
[2021-11-25] MEDS ORDERED: Norepinephrine 4 MG in 0.9 % Sodium Chloride 250 ML IVC PRN (07:45)
[2021-11-25] MEDS ORDERED: Mannitol 25% vial 3.25 GM, Magnesium Sulfate 2 GM, Sodium Bicarbonate 13 MEQ, Potassium... PF ONE (07:45)
[2021-11-25] MEDS ORDERED: Mannitol 25% vial 3.25 GM, Magnesium Sulfate 2 GM, Sodium Bicarbonate 13 MEQ, Potassium... PF SCH (07:45)
[2021-11-25] MEDS ORDERED: Buckersberg's Blood Cardioplegia PF SCH (07:45)
[2021-11-25 08:16] LABS: ABG Base Excess 1 mEq/L (-2 to 3); ABG Chloride 101 mEq/L (98-107); ABG Glucose 89 mg/dL (60-95); ABG HCO3 25 mEq/L (21-27); ABG Ionized Calcium 1.19 mmol/L (1.15-1.35); ABG Oxygen Saturation 100 % (95-98); ABG PCO2 38 mmHg (35-45); ABG PH 7.43 pH Units (7.32-7.45); ABG PO2 327 mmHg (85-104); ABG TCO2 26 mEq/L (20-26)
[2021-11-25 08:50] LABS: ABG Base Excess 0 mEq/L (-2 to 3); ABG Chloride 101 mEq/L (98-107); ABG Glucose 95 mg/dL (60-95); ABG HCO3 24 mEq/L (21-27); ABG Ionized Calcium 1.19 mmol/L (1.15-1.35); ABG Oxygen Saturation 100 % (95-98); ABG PCO2 39 mmHg (35-45); ABG PO2 201 mmHg (85-104); ABG TCO2 26 mEq/L (20-26)
[2021-11-25] MEDS ORDERED: Chlorhexidine Rinse 15 ML MOUTHWASH MM SCH (09:00)
[2021-11-25] MEDS ORDERED: ALBUMIN HUMAN ONE (09:07)
[2021-11-25 09:24] LABS: ABG Base Excess 1 mEq/L (-2 to 3); ABG Chloride 99 mEq/L (98-107); ABG Glucose 108 mg/dL (60-95); ABG HCO3 26 mEq/L (21-27); ABG Ionized Calcium 1.11 mmol/L (1.15-1.35); ABG Oxygen Saturation 100 % (95-98); ABG PCO2 39 mmHg (35-45); ABG PH 7.43 pH Units (7.32-7.45); ABG PO2 587 mmHg (85-104); ABG TCO2 27 mEq/L (20-26)
[2021-11-25 09:41] LABS: ABG Base Excess -1 mEq/L (-2 to 3); ABG Chloride 99 mEq/L (98-107); ABG Glucose 119 mg/dL (60-95); ABG HCO3 26 mEq/L (21-27); ABG Ionized Calcium 1.07 mmol/L (1.15-1.35); ABG Oxygen Saturation 100 % (95-98); ABG PCO2 61 mmHg (35-45); ABG PH 7.25 pH Units (7.32-7.45); ABG PO2 495 mmHg (85-104); ABG TCO2 28 mEq/L (20-26)
[2021-11-25 09:50] LABS: ABG Base Excess 0 mEq/L (-2 to 3); ABG Chloride 98 mEq/L (98-107); ABG Glucose 157 mg/dL (60-95); ABG HCO3 26 mEq/L (21-27); ABG Ionized Calcium 1.12 mmol/L (1.15-1.35); ABG Oxygen Saturation 100 % (95-98); ABG PCO2 54 mmHg (35-45); ABG PO2 588 mmHg (85-104); ABG TCO2 28 mEq/L (20-26)
[2021-11-25 10:01] LABS: ABG Base Excess 0 mEq/L (-2 to 3); ABG Chloride 99 mEq/L (98-107); ABG Glucose 154 mg/dL (60-95); ABG HCO3 27 mEq/L (21-27); ABG Ionized Calcium 1.12 mmol/L (1.15-1.35); ABG Oxygen Saturation 100 % (95-98); ABG PCO2 62 mmHg (35-45); ABG PH 7.25 pH Units (7.32-7.45); ABG PO2 617 mmHg (85-104); ABG TCO2 29 mEq/L (20-26)
[2021-11-25 10:10] LABS: ABG Base Excess 5 mEq/L (-2 to 3); ABG Chloride 98 mEq/L (98-107); ABG Glucose 158 mg/dL (60-95); ABG HCO3 30 mEq/L (21-27); ABG Ionized Calcium 1.02 mmol/L (1.15-1.35); ABG Oxygen Saturation 100 % (95-98); ABG PCO2 43 mmHg (35-45); ABG PH 7.45 pH Units (7.32-7.45); ABG PO2 590 mmHg (85-104); ABG TCO2 31 mEq/L (20-26)
[2021-11-25] MEDS: Nicotine 21 MG PATCH.TD24 TD SCH (10:16)
[2021-11-25] MEDS: Lactobacillus 1 EACH CAP.SPRINK PO SCH ×2 (10:16→20:12)
[2021-11-25 10:25] LABS: ABG Base Excess 4 mEq/L (-2 to 3); ABG Chloride 99 mEq/L (98-107); ABG Glucose 157 mg/dL (60-95); ABG HCO3 28 mEq/L (21-27); ABG Ionized Calcium 1.02 mmol/L (1.15-1.35); ABG Oxygen Saturation 100 % (95-98); ABG PCO2 40 mmHg (35-45); ABG PH 7.46 pH Units (7.32-7.45); ABG PO2 571 mmHg (85-104); ABG TCO2 30 mEq/L (20-26)
[2021-11-25 10:41] LABS: ABG Base Excess 3 mEq/L (-2 to 3); ABG Chloride 100 mEq/L (98-107); ABG Glucose 147 mg/dL (60-95); ABG HCO3 25 mEq/L (21-27); ABG Oxygen Saturation 100 % (95-98); ABG PCO2 25 mmHg (35-45); ABG PH 7.61 pH Units (7.32-7.45); ABG PO2 562 mmHg (85-104); ABG TCO2 25 mEq/L (20-26)
[2021-11-25] MEDS ORDERED: *HR* Dextrose 50 % in Water (Syg) 50 ML SYRINGE IVP PRN (10:44)
[2021-11-25] MEDS ORDERED: Insulin Regular, Human 100 UNIT/ML IV PRN (10:44)
[2021-11-25] MEDS ORDERED: Potassium Chloride 40 MEQ/200 ML BAG IVPB PRN (10:44)
[2021-11-25] MEDS ORDERED: *HR* OxyCODONE/APAP 5/325 TABLET PO PRN (10:49)
[2021-11-25] MEDS ORDERED: *HR* FentaNYL (PF) 100 MCG/2 ML VIAL IVP PRN (10:49)
[2021-11-25 10:59] LABS: ABG Base Excess 0 mEq/L (-2 to 3); ABG Chloride 101 mEq/L (98-107); ABG Glucose 139 mg/dL (60-95); ABG HCO3 26 mEq/L (21-27); ABG Ionized Calcium 1.05 mmol/L (1.15-1.35); ABG Oxygen Saturation 100 % (95-98); ABG PCO2 46 mmHg (35-45); ABG PH 7.36 pH Units (7.32-7.45); ABG PO2 514 mmHg (85-104); ABG TCO2 27 mEq/L (20-26)
[2021-11-25] MEDS ORDERED: Protamine Sulfate 50 MG/5 ML VIAL IVP ONE (11:09)
[2021-11-25 11:25] LABS: ABG Base Excess -2 mEq/L (-2 to 3); ABG Chloride 101 mEq/L (98-107); ABG Glucose 139 mg/dL (60-95); ABG HCO3 24 mEq/L (21-27); ABG Ionized Calcium 1.04 mmol/L (1.15-1.35); ABG Oxygen Saturation 100 % (95-98); ABG PCO2 47 mmHg (35-45); ABG PH 7.32 pH Units (7.32-7.45); ABG PO2 215 mmHg (85-104); ABG TCO2 26 mEq/L (20-26)
[2021-11-25 11:52] LABS: ABG Base Excess -1 mEq/L (-2 to 3); ABG HCO3 25 mEq/L (21-27); ABG Oxygen Saturation 91 % (95-98); ABG PCO2 49 mmHg (35-45); ABG PH 7.32 pH Units (7.32-7.45); ABG PO2 68 mmHg (85-104); ABG TCO2 27 mEq/L (20-26); Blood Gas VT 500 cc
[2021-11-25] MEDS: Albumin Human 5% 12.5 GM/250 ML IV.SOLN IVPB PRN ×6 (12:00→15:38)
[2021-11-25 12:05] LABS: Mean Platelet Volume 9.6 fL (9.4-12.4); Red Cell Distribution Width 17.8 % (11.5-14.5)
[2021-11-25 12:07] LABS: Hematocrit 18.5 % (37.5-50.1); Mean Corpuscular HGB Conc 31.9 g/dL (31.6-35.5); Mean Corpuscular Hemoglobin 28.6 pg (28.0-33.3); Mean Corpuscular Volume 89.8 fL (83.0-100.0); Platelet Count 399 K/mcL (140-400); Red Blood Count 2.06 M/mcL (4.19-5.50)
[2021-11-25 12:10] LABS: White Blood Count 33.5 K/mcL (4.3-11.1)
[2021-11-25 12:11] LABS: Hemoglobin 5.9 g/dL (12.9-16.9)
[2021-11-25 12:12] LABS: INR 1.7; Prothrombin Time 18.7 Seconds (9.4-12.1)
[2021-11-25 12:15] LABS: Activated Partial Thrombo Time 37.2 Seconds (26.0-36.0)
[2021-11-25 12:30] LABS: BUN/Creatinine Ratio 14 (6-26); Blood Urea Nitrogen 9 mg/dL (6-20); Carbon Dioxide 25 mEq/L (23-29); Chloride 103 mEq/L (98-107); Glucose 156 mg/dL (70-105); Osmolality,Calculated 284 (280-300); Potassium 4.9 mEq/L (3.5-5.1); Sodium 136 mEq/L (136-145); eGFR For African Americans > 60 (> 60); eGFR For Non-African Americans > 60 (> 60)
[2021-11-25 12:31] LABS: Calcium 6.8 mg/dL (8.6-10.3); Magnesium 2.9 mg/dL (1.6-2.6)
[2021-11-25] MEDS: Calcium Gluconate 1gm/50mL 1 GM/50 ML BAG IVPB PRN ×2 (12:32→21:02)
[2021-11-25 12:36] LABS: Eosinophils # 0.3 K/mcL (0.0-0.6); Hypochromasia Present (Not Present); Monocytes # 0.3 K/mcL (0.0-1.3); Neutrophils # 26.8 K/mcL (1.6-8.9); Platelet Estimate Normal (Normal)
[2021-11-25 12:37] LABS: Anisocytosis 1+ (Not Present)
[2021-11-25] MEDS: niCARdipine 20 MG/200 ML MLS IVC SCH ×5 (12:50→23:07)
[2021-11-25] MEDS: DOBUTamine 1,000 MG/250 ML BAG IVC SCH ×2 (13:09→15:16)
[2021-11-25] MEDS ORDERED: Artificial Tears SOLN 15 ML BOTTLE BOTH EYES PRN (13:42)
[2021-11-25] MEDS: Norepinephrine 4 MG/254 ML IV.SOLN IVC SCH ×5 (13:50→22:53)
[2021-11-25] MEDS: Dexmedetomidine HCl 400 MCG/100 ML MLS IVC SCH ×4 (14:14→22:50)
[2021-11-25] MEDS: Pantoprazole 40 MG VIAL IVP SCH (14:14)
[2021-11-25] MEDS: FentaNYL (PF) 1,000 MCG/100 ML IV.SOLN IVC SCH ×3 (14:15→20:14)
[2021-11-25] MEDS: Artificial Tears SOLN 15 ML BOTTLE BOTH EYES SCH ×3 (14:43→23:06)
[2021-11-25] MEDS ORDERED: Lidocaine 2% Syringe 100 MG/5 ML IVP ONE (15:42)
[2021-11-25] MEDS ORDERED: *HR* Heparin 10,000 UNIT/10 ML VIAL IR ONE (15:42)
[2021-11-25] MEDS ORDERED: *HR* Magnesium Sulfate 2 GM/50 ML PIGGYBACK IVPB ONE (15:42)
[2021-11-25] MEDS ORDERED: Mannitol 25% vial 12.5 GM/50 ML VIAL IVPB ONE (15:42)
[2021-11-25] MEDS ORDERED: Tranexamic Acid 1,000 MG/10 ML VIAL IR ONE (15:42)
[2021-11-25] MEDS ORDERED: *HR* Phenylephrine 10 MG/ML VIAL IVC ONE (15:42)
[2021-11-25 15:56] LABS: ABG Base Excess -3 mEq/L (-2 to 3); ABG HCO3 20 mEq/L (21-27); ABG Oxygen Saturation 98 % (95-98); ABG PCO2 28 mmHg (35-45); ABG PH 7.47 pH Units (7.32-7.45); ABG PO2 88 mmHg (85-104); ABG TCO2 21 mEq/L (20-26); Blood Gas VT 500 cc
[2021-11-25 16:15] LABS: Hematocrit 16.9 % (37.5-50.1)
[2021-11-25 16:19] LABS: Hemoglobin 5.6 g/dL (12.9-16.9)
[2021-11-25 16:22] LABS: Prothrombin Time 22.1 Seconds (9.4-12.1)
[2021-11-25] MEDS ORDERED: Furosemide 40 MG/4 ML VIAL IVP ONE (18:40)
[2021-11-25] MEDS ORDERED: Furosemide 40 MG/4 ML VIAL ONE (18:43)
[2021-11-25] MEDS: *HR* Dextrose 50 % in Water (Syg) 50 ML SYRINGE IVP PRN (18:53)
[2021-11-25] MEDS ORDERED: [UNRECOGNIZED DRUG - OTHER] IVPB ONE (19:00)
[2021-11-25] MEDS ORDERED: WATER FOR INJ IVPB ONE (19:00)
[2021-11-25] MEDS ORDERED: HUM PROTHROMBIN CPLX IVPB ONE (19:00)
[2021-11-25 20:03] LABS: ABG Base Excess -11 mEq/L (-2 to 3); ABG HCO3 14 mEq/L (21-27); ABG Oxygen Saturation 96 % (95-98); ABG PCO2 25 mmHg (35-45); ABG PH 7.36 pH Units (7.32-7.45); ABG PO2 84 mmHg (85-104); ABG TCO2 15 mEq/L (20-26); Blood Gas VT 500 cc
[2021-11-25] MEDS: Chlorhexidine Rinse 15 ML MOUTHWASH MM SCH (20:13)
[2021-11-25 20:36] LABS: VBG Ionized Calcium 0.91 mmol/L (1.15-1.35)
[2021-11-25 20:47] LABS: BUN/Creatinine Ratio 12 (6-26); Blood Urea Nitrogen 13 mg/dL (6-20); Calcium 7.2 mg/dL (8.6-10.3); Carbon Dioxide 15 mEq/L (23-29); Chloride 102 mEq/L (98-107); Glucose 103 mg/dL (70-105); Magnesium 2.7 mg/dL (1.6-2.6); Osmolality,Calculated 288 (280-300); Potassium 4.7 mEq/L (3.5-5.1); Sodium 139 mEq/L (136-145); eGFR For African Americans > 60 (> 60); eGFR For Non-African Americans > 60 (> 60)
[2021-11-25] MEDS: Calcium Gluconate 1gm/50mL 1 GM/50 ML BAG IVPB SCH ×2 (21:17→21:47)
[2021-11-25 22:37] LABS: Hematocrit 22.9 % (37.5-50.1); Hemoglobin 7.6 g/dL (12.9-16.9)
[2021-11-25 22:46] LABS: INR 1.6
[2021-11-25 23:07] LABS: ABG Base Excess -9 mEq/L (-2 to 3); ABG HCO3 16 mEq/L (21-27); ABG Oxygen Saturation 96 % (95-98); ABG PCO2 27 mmHg (35-45); ABG PH 7.37 pH Units (7.32-7.45); ABG PO2 81 mmHg (85-104); ABG TCO2 16 mEq/L (20-26); Blood Gas VT 500 cc
[2021-11-26] MEDS: *HR* Dextrose 50 % in Water (Syg) 50 ML SYRINGE IVP PRN ×4 (00:33→16:19)
[2021-11-26] MEDS: FentaNYL (PF) 1,000 MCG/100 ML IV.SOLN IVC SCH ×2 (00:34→05:01)
[2021-11-26] MEDS: Dexmedetomidine HCl 400 MCG/100 ML MLS IVC SCH ×6 (01:25→15:33)
[2021-11-26] MEDS: Norepinephrine 4 MG/254 ML IV.SOLN IVC SCH ×5 (01:25→11:10)
[2021-11-26] MEDS: Artificial Tears SOLN 15 ML BOTTLE BOTH EYES SCH ×6 (03:05→23:44)
[2021-11-26 03:10] LABS: Basophils % 0.2 %; Monocytes % 3.9 %; Platelet Count 274 K/mcL (140-400)
[2021-11-26 03:12] LABS: Basophils # 0.1 K/mcL (0.0-0.2); Hematocrit 24.2 % (37.5-50.1); Hemoglobin 7.9 g/dL (12.9-16.9); Immature Granulocytes % 0.7 % (0-4); Lymphocytes # 2.6 K/mcL (0.6-4.6); Lymphocytes % 10.1 %; Mean Corpuscular HGB Conc 32.6 g/dL (31.6-35.5); Mean Corpuscular Hemoglobin 28.4 pg (28.0-33.3); Mean Corpuscular Volume 87.1 fL (83.0-100.0); Mean Platelet Volume 10.3 fL (9.4-12.4); Nucleated Red Blood Cells 0.1 /100 WBC (0); Red Blood Count 2.78 M/mcL (4.19-5.50); Segmented Neutrophils % 85.1 %; White Blood Count 25.9 K/mcL (4.3-11.1)
[2021-11-26 03:27] LABS: BUN/Creatinine Ratio 15 (6-26); Blood Urea Nitrogen 18 mg/dL (6-20); Calcium 7.4 mg/dL (8.6-10.3); Carbon Dioxide 16 mEq/L (23-29); Chloride 102 mEq/L (98-107); Glucose 99 mg/dL (70-105); Magnesium 2.6 mg/dL (1.6-2.6); Osmolality,Calculated 286 (280-300); Potassium 4.9 mEq/L (3.5-5.1); Sodium 137 mEq/L (136-145); eGFR For African Americans > 60 (> 60); eGFR For Non-African Americans > 60 (> 60)
[2021-11-26 03:28] LABS: INR 1.9; Prothrombin Time 20.7 Seconds (9.4-12.1)
[2021-11-26 03:31] LABS: Activated Partial Thrombo Time 35.9 Seconds (26.0-36.0)
[2021-11-26] MEDS: Calcium Gluconate 1gm/50mL 1 GM/50 ML BAG IVPB PRN ×2 (03:33→17:05)
[2021-11-26 03:45] LABS: Platelet Estimate Normal (Normal)
[2021-11-26 03:46] LABS: ABG Base Excess -9 mEq/L (-2 to 3); ABG HCO3 15 mEq/L (21-27); ABG Oxygen Saturation 96 % (95-98); ABG PCO2 27 mmHg (35-45); ABG PH 7.36 pH Units (7.32-7.45); ABG PO2 80 mmHg (85-104); ABG TCO2 16 mEq/L (20-26); Blood Gas VT 500 cc
[2021-11-26] MEDS: ceFAZolin 2,000 MG in 0.9 % Sodium Chloride 100 ML IVPB SCH (08:04)
[2021-11-26] MEDS: niCARdipine 20 MG/200 ML MLS IVC SCH ×5 (08:18→22:52)
[2021-11-26] MEDS: Nicotine 21 MG PATCH.TD24 TD SCH (08:53)
[2021-11-26] MEDS: Lactobacillus 1 EACH CAP.SPRINK PO SCH ×2 (08:54→20:16)
[2021-11-26] MEDS: Aspirin 81 MG TAB.CHEW PO SCH (08:54)
[2021-11-26] MEDS: Pantoprazole 40 MG VIAL IVP SCH (08:54)
[2021-11-26] MEDS: Chlorhexidine Rinse 15 ML MOUTHWASH MM SCH ×2 (08:55→20:16)
[2021-11-26] MEDS ORDERED: Aspirin Enteric Coated 81 MG Tablet PO SCH (09:00)
[2021-11-26] MEDS: FentaNYL (PF) 2,500 MCG/50 ML IV.SOLN IVC SCH (09:26)
[2021-11-26 10:17] LABS: Hematocrit 23.8 % (37.5-50.1)
[2021-11-26 10:20] LABS: VBG Ionized Calcium 0.97 mmol/L (1.15-1.35)
[2021-11-26 10:37] LABS: INR 2.2; Prothrombin Time 24.5 Seconds (9.4-12.1)
[2021-11-26] MEDS ORDERED: Calcium Gluconate 1gm/50mL 1 GM/50 ML BAG IVPB SCH (11:00)
[2021-11-26] MEDS ORDERED: Furosemide 20 MG/2 ML VIAL IVP ONE (11:34)
[2021-11-26] MEDS: Norepinephrine 8 MG/250 ML IV.SOLN IVC SCH (13:30)
[2021-11-26 13:54] LABS: ABG Base Excess -7 mEq/L (-2 to 3); ABG HCO3 18 mEq/L (21-27); ABG Oxygen Saturation 95 % (95-98); ABG PCO2 33 mmHg (35-45); ABG PH 7.35 pH Units (7.32-7.45); ABG PO2 77 mmHg (85-104); ABG TCO2 19 mEq/L (20-26); Blood Gas Modality ASSIST CONTROL; Blood Gas VT 500 cc
[2021-11-26] MEDS ORDERED: Vancomycin 1,250 MG/262.5 ML IV.SOLN IVPB ONE (14:00)
[2021-11-26] MEDS ORDERED: *HR* Rocuronium Bromide 50 MG/5 ML VIAL IVP ONE (14:53)
[2021-11-26] MEDS ORDERED: Perflutren Lipid Microsphere 1.3 ML in 0.9 % Sodium Chloride 8.7 ML IVP PRN (14:55)
[2021-11-26] MEDS ORDERED: Sodium Bicarbonate 150 MEQ in D5% in Water 1,000 ML IVC SCH (15:00)
[2021-11-26] MEDS: CeFAZolin 2 GM/100 ML BAG IVPB SCH ×2 (16:14→23:44)
[2021-11-26 16:36] LABS: Hematocrit 22.5 % (37.5-50.1); Hemoglobin 7.6 g/dL (12.9-16.9)
[2021-11-26] MEDS ORDERED: Norepinephrine 4 MG in 0.9 % Sodium Chloride 250 ML IVC PRN (16:37)
[2021-11-26] MEDS ORDERED: Papaverine 60 MG/2 ML VIAL IVP ONE (16:39)
[2021-11-26] MEDS ORDERED: Isovue-300 50ML VIAL ONE (16:39)
[2021-11-26] MEDS ORDERED: Heparin 1,000 UNITS/500 mL 500 ML ONE (16:41)
[2021-11-26] MEDS ORDERED: Buckersberg's Blood Cardioplegia PF SCH (16:45)
[2021-11-26] MEDS ORDERED: Heparin 15,000 UNIT in 0.9 % Sodium Chloride 500 ML IV ONE (16:45)
[2021-11-26] MEDS ORDERED: del Nido Cardioplegia Solution PF ONE (16:45)
[2021-11-26] MEDS ORDERED: del Nido Cardioplegia Solution PF SCH (16:45)
[2021-11-26 16:46] LABS: ABG Ionized Calcium 0.93 mmol/L (1.15-1.35)
[2021-11-26] MEDS ORDERED: Tranexamic Acid 1,000 MG/10 ML VIAL ONE (16:46)
[2021-11-26] MEDS ORDERED: *HR* Norepinephrine 4 MG/4 ML VIAL IVC ONE (16:46)
[2021-11-26] MEDS ORDERED: *HR* Rocuronium Bromide 50 MG/5 ML VIAL ONE ×2 (16:46→18:41)
[2021-11-26] MEDS ORDERED: *HR* Etomidate 20 MG/10 ML AMPUL IVP ONE (16:46)
[2021-11-26] MEDS ORDERED: Protamine Sulfate 250 MG/25 ML VIAL IVP ONE (16:49)
[2021-11-26] MEDS ORDERED: *HR* FentaNYL (PF) 1,000 MCG/20 ML VIAL ONE (16:53)
[2021-11-26] MEDS ORDERED: *HR* Midazolam HCl 5 MG/5 ML VIAL IVP ONE (16:55)
[2021-11-26 16:56] LABS: INR 2.8; Prothrombin Time 31.5 Seconds (9.4-12.1)
[2021-11-26 17:05] LABS: ABG Base Excess -1 mEq/L (-2 to 3); ABG Chloride 103 mEq/L (98-107); ABG Glucose 131 mg/dL (60-95); ABG HCO3 25 mEq/L (21-27); ABG Ionized Calcium 0.92 mmol/L (1.15-1.35); ABG Oxygen Saturation 100 % (95-98); ABG PCO2 49 mmHg (35-45); ABG PH 7.31 pH Units (7.32-7.45); ABG PO2 359 mmHg (85-104); ABG TCO2 26 mEq/L (20-26)
[2021-11-26 17:16] LABS: Alanine Aminotransferase 1206 Units/L (7-52); Albumin 2.7 g/dL (3.5-5.7); Albumin/Globulin Ratio 0.9 (1.1-2.2); Alkaline Phosphatase 68 Units/L (34-104); Aspartate Amino Transferase > 3000 Units/L (13-39); Bilirubin,Direct 0.6 mg/dL (0.0-0.2); Bilirubin,Indirect 0.5 mg/dL (0.0-1.0); Bilirubin,Total 1.1 mg/dL (0.3-1.0); Globulin 2.9 g/dL (2.4-3.5); Potassium 5.1 mEq/L (3.5-5.1); Total Protein 5.6 g/dL (6.4-8.9)
[2021-11-26] MEDS ORDERED: *HR* Phenylephrine 10 MG/ML VIAL IVC ONE (17:32)
[2021-11-26] MEDS ORDERED: Albumin Human 25% 25 GM/100 ML IV.SOLN IVPB ONE (17:32)
[2021-11-26] MEDS ORDERED: Mannitol 25% vial 12.5 GM/50 ML VIAL IVPB ONE (17:32)
[2021-11-26] MEDS ORDERED: *HR* Magnesium Sulfate 2 GM/50 ML PIGGYBACK IVPB ONE (17:32)
[2021-11-26] MEDS ORDERED: *HR* Heparin 10,000 UNIT/10 ML VIAL IR ONE (17:32)
[2021-11-26] MEDS ORDERED: Lidocaine 2% Syringe 100 MG/5 ML IVP ONE (17:32)
[2021-11-26] MEDS ORDERED: Tranexamic Acid 1,000 MG/10 ML VIAL IR ONE (17:32)
[2021-11-26] MEDS ORDERED: Calcium Gluconate 1,000 MG/10 ML VIAL ONE ×3 (17:43→21:16)
[2021-11-26 18:10] LABS: ABG Base Excess -7 mEq/L (-2 to 3); ABG Chloride 106 mEq/L (98-107); ABG Glucose 75 mg/dL (60-95); ABG HCO3 19 mEq/L (21-27); ABG Oxygen Saturation 93 % (95-98); ABG PCO2 37 mmHg (35-45); ABG PH 7.32 pH Units (7.32-7.45); ABG PO2 71 mmHg (85-104); ABG TCO2 20 mEq/L (20-26)
[2021-11-26 18:35] LABS: ABG Base Excess -7 mEq/L (-2 to 3); ABG Chloride 106 mEq/L (98-107); ABG Glucose 63 mg/dL (60-95); ABG HCO3 19 mEq/L (21-27); ABG Ionized Calcium 1.09 mmol/L (1.15-1.35); ABG Oxygen Saturation 98 % (95-98); ABG PCO2 41 mmHg (35-45); ABG PH 7.27 pH Units (7.32-7.45); ABG PO2 115 mmHg (85-104); ABG TCO2 20 mEq/L (20-26)
[2021-11-26] MEDS ORDERED: [UNRECOGNIZED DRUG - OTHER] IVPB ONE ×2 (18:45→21:30)
[2021-11-26] MEDS ORDERED: HUM PROTHROMBIN CPLX IVPB ONE ×2 (18:45→21:30)
[2021-11-26] MEDS ORDERED: WATER FOR INJ IVPB ONE ×2 (18:45→21:30)
[2021-11-26 18:46] LABS: ABG Base Excess -9 mEq/L (-2 to 3); ABG Chloride 102 mEq/L (98-107); ABG Glucose 57 mg/dL (60-95); ABG HCO3 18 mEq/L (21-27); ABG Ionized Calcium 0.96 mmol/L (1.15-1.35); ABG Oxygen Saturation 100 % (95-98); ABG PCO2 41 mmHg (35-45); ABG PH 7.24 pH Units (7.32-7.45); ABG PO2 590 mmHg (85-104); ABG TCO2 19 mEq/L (20-26)
[2021-11-26] MEDS ORDERED: *HR* Dextrose 50 % in Water (Syg) 50 ML SYRINGE ONE ×2 (18:47→21:10)
[2021-11-26] MEDS ORDERED: Albumin Human 5% 12.5 GM/250 ML IV.SOLN ONE (18:56)
[2021-11-26] MEDS ORDERED: ceFAZolin 1,000 MG in Water for inj. (sterile) 20 ML IVP ONE ×2 (19:00→22:00)
[2021-11-26 19:14] LABS: ABG Base Excess -2 mEq/L (-2 to 3); ABG Chloride 100 mEq/L (98-107); ABG Glucose 203 mg/dL (60-95); ABG HCO3 23 mEq/L (21-27); ABG Ionized Calcium 0.93 mmol/L (1.15-1.35); ABG Oxygen Saturation 100 % (95-98); ABG PCO2 41 mmHg (35-45); ABG PH 7.36 pH Units (7.32-7.45); ABG PO2 451 mmHg (85-104); ABG TCO2 25 mEq/L (20-26)
[2021-11-26 19:20] LABS: VBG Base Excess -6 mEq/L; VBG Chloride 102 mEq/L (98-107); VBG Glucose 137 mg/dl (65-95); VBG HCO3 19 mEq/L (21-27); VBG Ionized Calcium 0.89 mmol/L (1.15-1.35); VBG Oxygen Saturation 95 %; VBG PCO2 37 mmHg (41-51); VBG PH 7.32 pH Units (7.32-7.42); VBG PO2 80 mmHg (25-50); VBG Total CO2 20 mEq/L
[2021-11-26 19:30] LABS: VBG Base Excess -7 mEq/L; VBG Chloride 102 mEq/L (98-107); VBG Glucose 127 mg/dl (65-95); VBG HCO3 18 mEq/L (21-27); VBG Ionized Calcium 0.92 mmol/L (1.15-1.35); VBG Oxygen Saturation 93 %; VBG PCO2 32 mmHg (41-51); VBG PH 7.36 pH Units (7.32-7.42); VBG PO2 68 mmHg (25-50); VBG Total CO2 19 mEq/L
[2021-11-26 19:49] LABS: ABG Base Excess -7 mEq/L (-2 to 3); ABG Chloride 102 mEq/L (98-107); ABG Glucose 105 mg/dL (60-95); ABG HCO3 17 mEq/L (21-27); ABG Ionized Calcium 0.88 mmol/L (1.15-1.35); ABG Oxygen Saturation 100 % (95-98); ABG PCO2 27 mmHg (35-45); ABG PH 7.42 pH Units (7.32-7.45); ABG PO2 594 mmHg (85-104); ABG TCO2 18 mEq/L (20-26)
[2021-11-26 20:06] LABS: ABG Base Excess -7 mEq/L (-2 to 3); ABG Chloride 102 mEq/L (98-107); ABG Glucose 86 mg/dL (60-95); ABG HCO3 18 mEq/L (21-27); ABG Ionized Calcium 0.92 mmol/L (1.15-1.35); ABG Oxygen Saturation 100 % (95-98); ABG PCO2 33 mmHg (35-45); ABG PH 7.36 pH Units (7.32-7.45); ABG PO2 545 mmHg (85-104); ABG TCO2 19 mEq/L (20-26)
[2021-11-26 20:29] LABS: ABG Base Excess -3 mEq/L (-2 to 3); ABG Chloride 102 mEq/L (98-107); ABG Glucose 75 mg/dL (60-95); ABG HCO3 23 mEq/L (21-27); ABG Ionized Calcium 0.88 mmol/L (1.15-1.35); ABG Oxygen Saturation 100 % (95-98); ABG PCO2 42 mmHg (35-45); ABG PH 7.35 pH Units (7.32-7.45); ABG PO2 549 mmHg (85-104); ABG TCO2 24 mEq/L (20-26)
[2021-11-26 20:34] LABS: ABG Base Excess -8 mEq/L (-2 to 3); ABG Chloride 104 mEq/L (98-107); ABG Glucose 98 mg/dL (60-95); ABG HCO3 21 mEq/L (21-27); ABG Ionized Calcium 1.29 mmol/L (1.15-1.35); ABG Oxygen Saturation 100 % (95-98); ABG PCO2 62 mmHg (35-45); ABG PH 7.13 pH Units (7.32-7.45); ABG PO2 487 mmHg (85-104); ABG TCO2 23 mEq/L (20-26)
[2021-11-26] MEDS ORDERED: Furosemide 40 MG/4 ML VIAL ONE (20:50)
[2021-11-26 20:59] LABS: ABG Base Excess -2 mEq/L (-2 to 3); ABG Chloride 104 mEq/L (98-107); ABG Glucose 78 mg/dL (60-95); ABG HCO3 24 mEq/L (21-27); ABG Ionized Calcium 1.17 mmol/L (1.15-1.35); ABG Oxygen Saturation 100 % (95-98); ABG PCO2 46 mmHg (35-45); ABG PH 7.32 pH Units (7.32-7.45); ABG PO2 576 mmHg (85-104); ABG TCO2 25 mEq/L (20-26)
[2021-11-26 21:58] LABS: ABG Base Excess -8 mEq/L (-2 to 3); ABG HCO3 18 mEq/L (21-27); ABG Oxygen Saturation 95 % (95-98); ABG PCO2 35 mmHg (35-45); ABG PH 7.31 pH Units (7.32-7.45); ABG PO2 80 mmHg (85-104); ABG TCO2 19 mEq/L (20-26); Blood Gas VT 600 cc
[2021-11-26 22:04] LABS: Basophils % 0.2 %; Eosinophils % 0.1 %; Hematocrit 19.5 % (37.5-50.1); Hemoglobin 6.3 g/dL (12.9-16.9); Immature Granulocytes % 1.1 % (0-4); Lymphocytes # 1.5 K/mcL (0.6-4.6); Lymphocytes % 9.5 %; Mean Corpuscular HGB Conc 32.3 g/dL (31.6-35.5); Mean Corpuscular Hemoglobin 28.9 pg (28.0-33.3); Mean Corpuscular Volume 89.4 fL (83.0-100.0); Mean Platelet Volume 9.8 fL (9.4-12.4); Monocytes # 0.5 K/mcL (0.0-1.3); Monocytes % 3.5 %; Neutrophils # 13.3 K/mcL (1.6-8.9); Nucleated Red Blood Cells 0.5 /100 WBC (0); Platelet Count 126 K/mcL (140-400); Red Blood Count 2.18 M/mcL (4.19-5.50); Red Cell Distribution Width 16.9 % (11.5-14.5); Segmented Neutrophils % 85.6 %; White Blood Count 15.5 K/mcL (4.3-11.1)
[2021-11-26 22:14] LABS: INR 1.7
[2021-11-26 22:16] LABS: VBG Ionized Calcium 0.99 mmol/L (1.15-1.35)
[2021-11-26 22:16] LABS: Activated Partial Thrombo Time 48.3 Seconds (26.0-36.0)
[2021-11-26] MEDS ORDERED: D5 IVC ONE ×3 (22:21)
[2021-11-26] MEDS ORDERED: WATER IVC ONE ×3 (22:21)
[2021-11-26] MEDS ORDERED: ACETYLCYSTEINE IVC ONE ×3 (22:21)
[2021-11-26] MEDS: Cisatracurium 200 MG in 0.9 % Sodium Chloride 80 ML IVC SCH (22:28)
[2021-11-26] MEDS ORDERED: 0.9 % Sodium Chloride 250 ML IVC SCH (22:30)
[2021-11-26 22:31] LABS: Anisocytosis 1+ (Not Present); Platelet Estimate Slight Decrease (Normal)
[2021-11-26 23:31] LABS: Alanine Aminotransferase 626 Units/L (7-52); Albumin 2.4 g/dL (3.5-5.7); Albumin/Globulin Ratio 1.1 (1.1-2.2); Alkaline Phosphatase 60 Units/L (34-104); Aspartate Amino Transferase > 3000 Units/L (13-39); BUN/Creatinine Ratio 12 (6-26); Bilirubin,Direct 0.6 mg/dL (0.0-0.2); Bilirubin,Indirect 0.5 mg/dL (0.0-1.0); Bilirubin,Total 1.1 mg/dL (0.3-1.0); Blood Urea Nitrogen 24 mg/dL (6-20); Calcium 8.3 mg/dL (8.6-10.3); Carbon Dioxide 18 mEq/L (23-29); Chloride 101 mEq/L (98-107); Globulin 2.1 g/dL (2.4-3.5); Glucose 111 mg/dL (70-105); Osmolality,Calculated 301 (280-300); Potassium 4.3 mEq/L (3.5-5.1); Sodium 143 mEq/L (136-145); Total Protein 4.5 g/dL (6.4-8.9); eGFR For African Americans 48 (> 60); eGFR For Non-African Americans 40 (> 60)
[2021-11-27] MEDS: Dexmedetomidine HCl 400 MCG/100 ML MLS IVC SCH ×6 (00:10→22:13)
[2021-11-27] MEDS ORDERED: Furosemide 240 MG in 0.9 % Sodium Chloride 96 ML IVC SCH (00:15)
[2021-11-27] MEDS: Norepinephrine 8 MG/250 ML IV.SOLN IVC SCH ×5 (00:16→20:22)
[2021-11-27] MEDS: Calcium Gluconate 1gm/50mL 1 GM/50 ML BAG IVPB PRN ×5 (00:34→19:10)
[2021-11-27] MEDS: niCARdipine 20 MG/200 ML MLS IVC SCH ×6 (00:50→23:48)
[2021-11-27 01:58] LABS: ABG Base Excess -6 mEq/L (-2 to 3); ABG HCO3 18 mEq/L (21-27); ABG Oxygen Saturation 98 % (95-98); ABG PCO2 30 mmHg (35-45); ABG PH 7.39 pH Units (7.32-7.45); ABG PO2 101 mmHg (85-104); ABG TCO2 19 mEq/L (20-26); Blood Gas VT 550 cc
[2021-11-27] MEDS: Artificial Tears SOLN 15 ML BOTTLE BOTH EYES SCH ×6 (03:02→23:29)
[2021-11-27 03:14] LABS: Basophils % 0.3 %; Hemoglobin 7.7 g/dL (12.9-16.9); Nucleated Red Blood Cells 0.5 /100 WBC (0)
[2021-11-27 03:16] LABS: Eosinophils # 0.1 K/mcL (0.0-0.6); Eosinophils % 0.5 %; Immature Granulocytes % 1.2 % (0-4); Immature Platelets 5.6 % (1.1-6.1); Lymphocytes # 1.7 K/mcL (0.6-4.6); Lymphocytes % 11.9 %; Mean Corpuscular HGB Conc 33.5 g/dL (31.6-35.5); Mean Corpuscular Hemoglobin 29.1 pg (28.0-33.3); Mean Corpuscular Volume 86.8 fL (83.0-100.0); Mean Platelet Volume 10.3 fL (9.4-12.4); Monocytes # 0.3 K/mcL (0.0-1.3); Monocytes % 1.7 %; Neutrophils # 12.3 K/mcL (1.6-8.9); Platelet Count 114 K/mcL (140-400); Red Blood Count 2.65 M/mcL (4.19-5.50); Segmented Neutrophils % 84.4 %; White Blood Count 14.6 K/mcL (4.3-11.1)
[2021-11-27 03:19] LABS: Platelet Estimate Slight Decrease (Normal)
[2021-11-27 03:25] LABS: INR 1.7; Prothrombin Time 18.7 Seconds (9.4-12.1)
[2021-11-27 03:30] LABS: VBG Ionized Calcium 0.92 mmol/L (1.15-1.35)
[2021-11-27 03:46] LABS: Alanine Aminotransferase 605 Units/L (7-52); Albumin 2.8 g/dL (3.5-5.7); Albumin/Globulin Ratio 1.2 (1.1-2.2); Alkaline Phosphatase 64 Units/L (34-104); Aspartate Amino Transferase > 3000 Units/L (13-39); BUN/Creatinine Ratio 12 (6-26); Bilirubin,Total 2.2 mg/dL (0.3-1.0); Blood Urea Nitrogen 25 mg/dL (6-20); Calcium 7.6 mg/dL (8.6-10.3); Carbon Dioxide 20 mEq/L (23-29); Chloride 100 mEq/L (98-107); Globulin 2.4 g/dL (2.4-3.5); Glucose 127 mg/dL (70-105); Magnesium 2.8 mg/dL (1.6-2.6); Osmolality,Calculated 300 (280-300); Phosphorous 6.7 mg/dL (2.7-4.5); Potassium 3.9 mEq/L (3.5-5.1); Sodium 142 mEq/L (136-145); Total Protein 5.2 g/dL (6.4-8.9); eGFR For African Americans 45 (> 60); eGFR For Non-African Americans 37 (> 60)
[2021-11-27 04:05] LABS: ABG Base Excess -4 mEq/L (-2 to 3); ABG HCO3 20 mEq/L (21-27); ABG Oxygen Saturation 95 % (95-98); ABG PCO2 34 mmHg (35-45); ABG PH 7.39 pH Units (7.32-7.45); ABG PO2 73 mmHg (85-104); ABG TCO2 21 mEq/L (20-26); Blood Gas VT 500 cc
[2021-11-27] MEDS ORDERED: Protamine Sulfate 50 MG/5 ML VIAL IVP ONE (06:39)
[2021-11-27 07:03] LABS: Hematocrit 21.2 % (37.5-50.1); Hemoglobin 7.3 g/dL (12.9-16.9)
[2021-11-27 07:10] LABS: VBG HCO3 21 mEq/L (21-27); VBG Ionized Calcium 0.95 mmol/L (1.15-1.35); VBG PCO2 34 mmHg (41-51); VBG PO2 162 mmHg (25-50)
[2021-11-27 07:19] LABS: INR 1.9
[2021-11-27 07:23] LABS: Calcium 7.6 mg/dL (8.6-10.3); Magnesium 2.8 mg/dL (1.6-2.6); Potassium 4.3 mEq/L (3.5-5.1)
[2021-11-27] MEDS: CeFAZolin 2 GM/100 ML BAG IVPB SCH ×3 (07:48→23:30)
[2021-11-27] MEDS: Pantoprazole 40 MG VIAL IVP SCH (07:49)
[2021-11-27] MEDS: Lactobacillus 1 EACH CAP.SPRINK PO SCH ×2 (07:50→20:01)
[2021-11-27] MEDS: Aspirin 81 MG TAB.CHEW PO SCH (07:50)
[2021-11-27] MEDS: Chlorhexidine Rinse 15 ML MOUTHWASH MM SCH ×2 (07:50→20:02)
[2021-11-27] MEDS: Docusate Oral Soln 100 MG/10 ML UDC PO SCH ×2 (08:00→20:01)
[2021-11-27] MEDS: FentaNYL (PF) 2,500 MCG/50 ML IV.SOLN IVC SCH ×2 (08:52→21:01)
[2021-11-27] MEDS ORDERED: Furosemide 20 MG/2 ML VIAL IVP SCH (09:00)
[2021-11-27] MEDS: Nicotine 21 MG PATCH.TD24 TD SCH (09:47)
[2021-11-27] MEDS: Cisatracurium 200 MG in 0.9 % Sodium Chloride 80 ML IVC SCH (10:43)
[2021-11-27 13:03] LABS: ABG Base Excess -5 mEq/L (-2 to 3); ABG HCO3 19 mEq/L (21-27); ABG Oxygen Saturation 98 % (95-98); ABG PCO2 32 mmHg (35-45); ABG PH 7.39 pH Units (7.32-7.45); ABG PO2 99 mmHg (85-104); ABG TCO2 20 mEq/L (20-26); Blood Gas VT 500 cc
[2021-11-27 13:21] LABS: Hematocrit 16.5 % (37.5-50.1)
[2021-11-27] MEDS: Albumin Human 5% 12.5 GM/250 ML IV.SOLN IVC SCH ×2 (13:21→16:42)
[2021-11-27] MEDS: Albumin 25% 25gram/100mL 25 GM/100 ML IV.SOLN IVPB SCH ×2 (13:21→19:28)
[2021-11-27 13:22] LABS: Bacteria,Urine Few per hpf (None-Few); Bilirubin,Urine Negative (Negative); Blood,Urine Small (Negative); Clarity,Urine Turbid (Clear); Color,Urine Yellow (Yellow); Glucose,Urine (UA) Normal (Normal); Ketones,Urine 20 mg/dL (Negative); Leukocyte Esterase,Urine Negative (Negative); Mucus,Urine Few per lpf (None-Few); Nitrite,Urine Negative (Negative); PH,Urine 5.5 pH Units (5.0-8.0); Protein,Urine 100 mg/dL (Neg-Trace); RBC,Urine 0-3 per hpf (0-3); Specific Gravity,Urine 1.021 (1.010-1.025); Urobilinogen,Urine Normal (Normal)
[2021-11-27 13:22] LABS: Hemoglobin 5.6 g/dL (12.9-16.9)
[2021-11-27 13:24] LABS: VBG Ionized Calcium 0.92 mmol/L (1.15-1.35)
[2021-11-27 13:27] LABS: INR 2.4; Prothrombin Time 26.4 Seconds (9.4-12.1)
[2021-11-27] MEDS ORDERED: Furosemide 480 MG in 0.9 % Sodium Chloride 192 ML IVC SCH (13:30)
[2021-11-27 13:39] LABS: Calcium 6.2 mg/dL (8.6-10.3); Magnesium 2.4 mg/dL (1.6-2.6); Potassium 4.2 mEq/L (3.5-5.1)
[2021-11-27] MEDS ORDERED: WATER FOR INJ IVPB ONE (14:00)
[2021-11-27] MEDS ORDERED: HUM PROTHROMBIN CPLX IVPB ONE (14:00)
[2021-11-27] MEDS ORDERED: [UNRECOGNIZED DRUG - OTHER] IVPB ONE (14:00)
[2021-11-27 17:49] LABS: ABG Base Excess -10 mEq/L (-2 to 3); ABG Chloride 104 mEq/L (98-107); ABG Glucose 61 mg/dL (60-95); ABG HCO3 18 mEq/L (21-27); ABG Ionized Calcium 0.77 mmol/L (1.15-1.35); ABG Oxygen Saturation 97 % (95-98); ABG PCO2 50 mmHg (35-45); ABG PH 7.17 pH Units (7.32-7.45); ABG PO2 112 mmHg (85-104); ABG TCO2 20 mEq/L (20-26)
[2021-11-27 17:49] LABS: Hemoglobin 9.1 g/dL (12.9-16.9)
[2021-11-27 17:52] LABS: VBG Ionized Calcium 0.83 mmol/L (1.15-1.35)
[2021-11-27 17:58] LABS: Activated Partial Thrombo Time 31.8 Seconds (26.0-36.0)
[2021-11-28 00:18] LABS: ABG Base Excess -5 mEq/L (-2 to 3); ABG HCO3 20 mEq/L (21-27); ABG Oxygen Saturation 97 % (95-98); ABG PCO2 38 mmHg (35-45); ABG PH 7.34 pH Units (7.32-7.45); ABG PO2 91 mmHg (85-104); ABG TCO2 21 mEq/L (20-26); Blood Gas Modality ASSIST CONTROL; Blood Gas VT 500 cc
[2021-11-28 00:34] LABS: VBG Ionized Calcium 0.84 mmol/L (1.15-1.35)
[2021-11-28] MEDS: Calcium Gluconate 1gm/50mL 1 GM/50 ML BAG IVPB PRN ×2 (00:37→12:32)
[2021-11-28] MEDS: Albumin 25% 25gram/100mL 25 GM/100 ML IV.SOLN IVPB SCH ×4 (01:00→20:28)
[2021-11-28] MEDS: Dexmedetomidine HCl 400 MCG/100 ML MLS IVC SCH ×8 (01:12→22:17)
[2021-11-28 01:15] LABS: Albumin 2.9 g/dL (3.5-5.7); Albumin/Globulin Ratio 1.3 (1.1-2.2); Bilirubin,Direct 1.9 mg/dL (0.0-0.2); Bilirubin,Indirect 0.7 mg/dL (0.0-1.0); Bilirubin,Total 2.6 mg/dL (0.3-1.0); Globulin 2.3 g/dL (2.4-3.5); Magnesium 2.7 mg/dL (1.6-2.6); Total Protein 5.2 g/dL (6.4-8.9)
[2021-11-28 01:20] LABS: Basophils # 0.1 K/mcL (0.0-0.2); Basophils % 0.5 %; Eosinophils % 0.2 %; Hematocrit 19.5 % (37.5-50.1); Immature Granulocytes % 1.3 % (0-4); Lymphocytes # 2.2 K/mcL (0.6-4.6); Mean Corpuscular HGB Conc 33.8 g/dL (31.6-35.5); Mean Corpuscular Hemoglobin 29.7 pg (28.0-33.3); Mean Corpuscular Volume 87.8 fL (83.0-100.0); Mean Platelet Volume 10.9 fL (9.4-12.4); Monocytes # 0.8 K/mcL (0.0-1.3); Monocytes % 3.9 %; Neutrophils # 16.8 K/mcL (1.6-8.9); Nucleated Red Blood Cells 0.8 /100 WBC (0); Platelet Count 132 K/mcL (140-400); Red Blood Count 2.22 M/mcL (4.19-5.50); Red Cell Distribution Width 15.1 % (11.5-14.5); Segmented Neutrophils % 83.1 %; White Blood Count 20.2 K/mcL (4.3-11.1)
[2021-11-28 01:21] LABS: Hemoglobin 6.6 g/dL (12.9-16.9)
[2021-11-28 02:17] LABS: Anisocytosis 1+ (Not Present); Platelet Estimate Normal (Normal); Polychromasia 1+ (Not Present)
[2021-11-28] MEDS: Artificial Tears SOLN 15 ML BOTTLE BOTH EYES SCH ×6 (03:08→23:10)
[2021-11-28 03:17] LABS: VBG Ionized Calcium 0.91 mmol/L (1.15-1.35)
[2021-11-28 03:31] LABS: Hematocrit 21.6 % (37.5-50.1); Hemoglobin 7.4 g/dL (12.9-16.9)
[2021-11-28 03:46] LABS: Albumin 3.4 g/dL (3.5-5.7); Bilirubin,Total 2.9 mg/dL (0.3-1.0); Calcium 7.7 mg/dL (8.6-10.3); Magnesium 2.7 mg/dL (1.6-2.6); Phosphorous 8.3 mg/dL (2.7-4.5)
[2021-11-28 03:57] LABS: Albumin/Globulin Ratio 1.5 (1.1-2.2); Globulin 2.2 g/dL (2.4-3.5); Total Protein 5.6 g/dL (6.4-8.9)
[2021-11-28] MEDS: Norepinephrine 8 MG/250 ML IV.SOLN IVC SCH ×2 (04:00→14:38)
[2021-11-28 04:14] LABS: ABG Base Excess -3 mEq/L (-2 to 3); ABG HCO3 21 mEq/L (21-27); ABG Oxygen Saturation 96 % (95-98); ABG PCO2 32 mmHg (35-45); ABG PH 7.42 pH Units (7.32-7.45); ABG PO2 81 mmHg (85-104); ABG TCO2 22 mEq/L (20-26); Blood Gas Modality ASSIST CONTROL; Blood Gas VT 500 cc
[2021-11-28 04:31] LABS: INR 1.8; Prothrombin Time 20.5 Seconds (9.4-12.1)
[2021-11-28 04:32] LABS: Activated Partial Thrombo Time 31.2 Seconds (26.0-36.0)
[2021-11-28 06:52] LABS: Hematocrit 19.3 % (37.5-50.1); Hemoglobin 6.6 g/dL (12.9-16.9)
[2021-11-28 07:05] LABS: Activated Partial Thrombo Time 30.7 Seconds (26.0-36.0)
[2021-11-28 07:13] LABS: INR 1.8; Prothrombin Time 20.3 Seconds (9.4-12.1)
[2021-11-28] MEDS: niCARdipine 20 MG/200 ML MLS IVC SCH ×5 (07:24→20:57)
[2021-11-28] MEDS: CeFAZolin 2 GM/100 ML BAG IVPB SCH ×3 (07:27→23:11)
[2021-11-28] MEDS: Lactobacillus 1 EACH CAP.SPRINK PO SCH ×2 (07:33→20:57)
[2021-11-28] MEDS: Aspirin 81 MG TAB.CHEW PO SCH (07:33)
[2021-11-28] MEDS: Chlorhexidine Rinse 15 ML MOUTHWASH MM SCH ×2 (07:33→20:57)
[2021-11-28] MEDS: Pantoprazole 40 MG VIAL IVP SCH (07:33)
[2021-11-28] MEDS: Docusate Oral Soln 100 MG/10 ML UDC PO SCH ×2 (07:33→20:57)
[2021-11-28] MEDS: Nicotine 21 MG PATCH.TD24 TD SCH (07:33)
[2021-11-28] MEDS ORDERED: *HR* Heparin 5,000 UNIT/ML VIAL IVP PRN (08:50)
[2021-11-28] MEDS ORDERED: 0.9 % Sodium Chloride 1,000 ML PRIME SCH (09:00)
[2021-11-28] MEDS: PrismaSATE BGK 4/2.5 5,000 ML CRRT SCH ×6 (10:31→20:25)
[2021-11-28 11:40] LABS: VBG HCO3 24 mEq/L (21-27); VBG Ionized Calcium 0.85 mmol/L (1.15-1.35); VBG PCO2 32 mmHg (41-51); VBG PH 7.48 pH Units (7.32-7.42); VBG PO2 123 mmHg (25-50)
[2021-11-28] MEDS: FentaNYL (PF) 2,500 MCG/50 ML IV.SOLN IVC SCH (19:30)
[2021-11-28] MEDS: Ferrous Sulfate Oral Soln 300 MG/5 ML UDC GTUBE SCH (20:57)
[2021-11-28 22:36] LABS: VBG Ionized Calcium 0.95 mmol/L (1.15-1.35)
[2021-11-29] MEDS: Dexmedetomidine HCl 400 MCG/100 ML MLS IVC SCH ×8 (01:23→22:21)
[2021-11-29] MEDS: PrismaSATE BGK 4/2.5 5,000 ML CRRT SCH ×10 (01:30→21:20)
[2021-11-29] MEDS: Albumin 25% 25gram/100mL 25 GM/100 ML IV.SOLN IVPB SCH ×4 (01:31→19:42)
[2021-11-29] MEDS: niCARdipine 20 MG/200 ML MLS IVC SCH ×6 (01:31→19:44)
[2021-11-29] MEDS: Artificial Tears SOLN 15 ML BOTTLE BOTH EYES SCH ×5 (04:01→19:42)
[2021-11-29 04:27] LABS: ABG Base Excess 0 mEq/L (-2 to 3); ABG HCO3 23 mEq/L (21-27); ABG Oxygen Saturation 97 % (95-98); ABG PCO2 29 mmHg (35-45); ABG PH 7.51 pH Units (7.32-7.45); ABG PO2 79 mmHg (85-104); ABG TCO2 24 mEq/L (20-26); Blood Gas VT 500 cc
[2021-11-29 04:30] LABS: VBG Ionized Calcium 0.94 mmol/L (1.15-1.35)
[2021-11-29 04:37] LABS: Basophils % 0.2 %; Immature Granulocytes % 1.1 % (0-4)
[2021-11-29 04:39] LABS: Eosinophils # 0.1 K/mcL (0.0-0.6); Eosinophils % 0.4 %; Hematocrit 17.3 % (37.5-50.1); Immature Platelets 10.2 % (1.1-6.1); Lymphocytes # 1.2 K/mcL (0.6-4.6); Mean Corpuscular HGB Conc 33.5 g/dL (31.6-35.5); Mean Corpuscular Hemoglobin 29.7 pg (28.0-33.3); Mean Corpuscular Volume 88.7 fL (83.0-100.0); Mean Platelet Volume 11.4 fL (9.4-12.4); Monocytes # 0.4 K/mcL (0.0-1.3); Monocytes % 2.8 %; Neutrophils # 11.7 K/mcL (1.6-8.9); Nucleated Red Blood Cells 1.4 /100 WBC (0); Red Blood Count 1.95 M/mcL (4.19-5.50); Red Cell Distribution Width 16.3 % (11.5-14.5); Segmented Neutrophils % 86.5 %; White Blood Count 13.5 K/mcL (4.3-11.1)
[2021-11-29 04:51] LABS: Albumin 3.3 g/dL (3.5-5.7); Albumin/Globulin Ratio 1.3 (1.1-2.2); Bilirubin,Total 3.6 mg/dL (0.3-1.0); Calcium 7.3 mg/dL (8.6-10.3); Globulin 2.5 g/dL (2.4-3.5); Magnesium 2.5 mg/dL (1.6-2.6); Phosphorous 3.5 mg/dL (2.7-4.5); Potassium 4.1 mEq/L (3.5-5.1); Total Protein 5.8 g/dL (6.4-8.9)
[2021-11-29 04:58] LABS: Hemoglobin 5.8 g/dL (12.9-16.9); Platelet Count 77 K/mcL (140-400)
[2021-11-29 05:14] LABS: Hypochromasia Present (Not Present); Platelet Estimate Marked Decrease (Normal); Polychromasia 2+ (Not Present)
[2021-11-29] MEDS: Chlorhexidine Rinse 15 ML MOUTHWASH MM SCH ×2 (07:24→19:43)
[2021-11-29] MEDS: CeFAZolin 2 GM/100 ML BAG IVPB SCH ×2 (07:24→15:44)
[2021-11-29] MEDS: Pantoprazole 40 MG VIAL IVP SCH ×2 (07:25→17:04)
[2021-11-29] MEDS: Lactobacillus 1 EACH CAP.SPRINK PO SCH ×2 (07:25→19:43)
[2021-11-29] MEDS: Docusate Oral Soln 100 MG/10 ML UDC PO SCH ×2 (07:25→19:43)
[2021-11-29] MEDS: Aspirin 81 MG TAB.CHEW PO SCH (07:25)
[2021-11-29] MEDS: Nicotine 21 MG PATCH.TD24 TD SCH (07:25)
[2021-11-29] MEDS: Ferrous Sulfate Oral Soln 300 MG/5 ML UDC GTUBE SCH ×2 (07:25→19:43)
[2021-11-29] MEDS: Calcium Gluconate 1gm/50mL 1 GM/50 ML BAG IVPB PRN (08:04)
[2021-11-29] MEDS: Norepinephrine 8 MG/250 ML IV.SOLN IVC SCH (09:06)
[2021-11-29 11:04] LABS: Immature Reticulocyte % 47.7 % (11.0-38.0); Retculocyte # 0.09 M/mcL (0.05-0.10); Reticulocyte % 4.8 % (1.6-2.8)
[2021-11-29 11:20] LABS: % Iron Saturation 17 % (20-55); Iron 35 mcg/dL (65-175); Lactate Dehydrogenase 496 Units/L (140-271); Transferrin 148 mg/dL (203-362)
[2021-11-29 11:39] LABS: Ferritin > 1500 ng/mL (20-250)
[2021-11-29] MEDS: FentaNYL (PF) 2,500 MCG/50 ML IV.SOLN IVC SCH (13:06)
[2021-11-29 15:21] LABS: VBG Ionized Calcium 0.93 mmol/L (1.15-1.35)
[2021-11-29 15:23] LABS: Hematocrit 23.2 % (37.5-50.1); Hemoglobin 7.9 g/dL (12.9-16.9); Immature Platelets 11.2 % (1.1-6.1); Mean Corpuscular HGB Conc 34.1 g/dL (31.6-35.5); Mean Corpuscular Volume 88.2 fL (83.0-100.0); Mean Platelet Volume 11.2 fL (9.4-12.4); Red Blood Count 2.63 M/mcL (4.19-5.50); Red Cell Distribution Width 15.6 % (11.5-14.5); White Blood Count 15.9 K/mcL (4.3-11.1)
[2021-11-29] MEDS ORDERED: Calcium Chloride 2,000 MG in 0.9 % Sodium Chloride 100 ML IVPB ONE (15:30)
[2021-11-29 23:09] LABS: VBG Ionized Calcium 1.07 mmol/L (1.15-1.35)
[2021-11-30] MEDS: Artificial Tears SOLN 15 ML BOTTLE BOTH EYES SCH ×6 (00:04→19:32)
[2021-11-30] MEDS: CeFAZolin 2 GM/100 ML BAG IVPB SCH ×4 (00:04→23:49)
[2021-11-30] MEDS: Dexmedetomidine HCl 400 MCG/100 ML MLS IVC SCH ×8 (01:22→22:35)
[2021-11-30] MEDS: niCARdipine 20 MG/200 ML MLS IVC SCH ×5 (02:02→19:32)
[2021-11-30] MEDS: Albumin 25% 25gram/100mL 25 GM/100 ML IV.SOLN IVPB SCH ×4 (02:02→19:33)
[2021-11-30] MEDS: PrismaSATE BGK 4/2.5 5,000 ML CRRT SCH ×10 (02:20→22:27)
[2021-11-30 04:04] LABS: Basophils # 0.1 K/mcL (0.0-0.2); Basophils % 0.4 %; Eosinophils # 0.1 K/mcL (0.0-0.6); Hematocrit 22.6 % (37.5-50.1); Hemoglobin 7.5 g/dL (12.9-16.9); Immature Granulocytes % 1.3 % (0-4); Immature Platelets 12.1 % (1.1-6.1); Lymphocytes # 1.2 K/mcL (0.6-4.6); Lymphocytes % 8.4 %; Mean Corpuscular HGB Conc 33.2 g/dL (31.6-35.5); Mean Corpuscular Volume 90.4 fL (83.0-100.0); Mean Platelet Volume 11.8 fL (9.4-12.4); Monocytes # 0.5 K/mcL (0.0-1.3); Monocytes % 3.4 %; Neutrophils # 12.3 K/mcL (1.6-8.9); Nucleated Red Blood Cells 0.5 /100 WBC (0); Red Cell Distribution Width 16.2 % (11.5-14.5); Segmented Neutrophils % 85.5 %; White Blood Count 14.4 K/mcL (4.3-11.1)
[2021-11-30 04:05] LABS: Platelet Count 45 K/mcL (140-400)
[2021-11-30 04:14] LABS: VBG Ionized Calcium 1.04 mmol/L (1.15-1.35)
[2021-11-30 04:26] LABS: Alanine Aminotransferase < 3 Units/L (7-52); Albumin 3.9 g/dL (3.5-5.7); Albumin/Globulin Ratio 1.5 (1.1-2.2); Alkaline Phosphatase 117 Units/L (34-104); Aspartate Amino Transferase 395 Units/L (13-39); BUN/Creatinine Ratio 10 (6-26); Bilirubin,Total 4.8 mg/dL (0.3-1.0); Blood Urea Nitrogen 17 mg/dL (6-20); Calcium 8.1 mg/dL (8.6-10.3); Carbon Dioxide 24 mEq/L (23-29); Chloride 101 mEq/L (98-107); Globulin 2.6 g/dL (2.4-3.5); Glucose 100 mg/dL (70-105); Magnesium 2.5 mg/dL (1.6-2.6); Osmolality,Calculated 284 (280-300); Phosphorous 2.2 mg/dL (2.7-4.5); Potassium 4.3 mEq/L (3.5-5.1); Sodium 136 mEq/L (136-145); Total Protein 6.5 g/dL (6.4-8.9); eGFR For African Americans 56 (> 60); eGFR For Non-African Americans 46 (> 60)
[2021-11-30 04:38] LABS: ABG Base Excess 1 mEq/L (-2 to 3); ABG HCO3 25 mEq/L (21-27); ABG Oxygen Saturation 97 % (95-98); ABG PCO2 36 mmHg (35-45); ABG PH 7.44 pH Units (7.32-7.45); ABG PO2 88 mmHg (85-104); ABG TCO2 26 mEq/L (20-26); Blood Gas VT 420 cc
[2021-11-30] MEDS: Pantoprazole 40 MG VIAL IVP SCH ×2 (05:54→18:08)
[2021-11-30] MEDS: Calcium Gluconate 1gm/50mL 1 GM/50 ML BAG IVPB PRN (05:54)
[2021-11-30] MEDS: FentaNYL (PF) 2,500 MCG/50 ML IV.SOLN IVC SCH ×2 (07:01→20:03)
[2021-11-30] MEDS ORDERED: Folic Acid 1 MG in 0.9 % Sodium Chloride 50 ML IVPB STA (07:25)
[2021-11-30] MEDS ORDERED: Cyanocobalamin (B-12) 1,000 MCG/ML VIAL IM ONE (07:25)
[2021-11-30] MEDS: Ferrous Sulfate Oral Soln 300 MG/5 ML UDC GTUBE SCH ×2 (08:02→19:33)
[2021-11-30] MEDS: Lactobacillus 1 EACH CAP.SPRINK PO SCH ×2 (08:02→19:34)
[2021-11-30] MEDS: Aspirin 81 MG TAB.CHEW PO SCH (08:02)
[2021-11-30] MEDS: Docusate Oral Soln 100 MG/10 ML UDC PO SCH ×2 (08:02→19:33)
[2021-11-30] MEDS: Chlorhexidine Rinse 15 ML MOUTHWASH MM SCH ×2 (08:02→19:34)
[2021-11-30] MEDS: Nicotine 21 MG PATCH.TD24 TD SCH (08:04)
[2021-11-30] MEDS ORDERED: Calcium Chloride 2,000 MG in 0.9 % Sodium Chloride 100 ML IVPB ONE (09:00)
[2021-11-30 11:35] LABS: VBG Ionized Calcium 1.29 mmol/L (1.15-1.35)
[2021-11-30 11:39] LABS: INR 1.4; Prothrombin Time 15.6 Seconds (9.4-12.1)
[2021-11-30 11:42] LABS: Activated Partial Thrombo Time 32.1 Seconds (26.0-36.0)
[2021-11-30 12:13] LABS: Phosphorous 2.8 mg/dL (2.7-4.5)
[2021-11-30] MEDS: Magic Mouthwash 10 ML UD Cup PO SCH ×2 (12:48→18:11)
[2021-11-30] MEDS ORDERED: Lidocaine -MPF 1% 5 ML AMPUL ONE (14:30)
[2021-11-30] MEDS: Insulin LISPRO 300 UNITS/3 ML VIAL SUBQ SCH ×2 (15:28→19:32)
[2021-11-30 15:30] LABS: Alanine Aminotransferase < 3 Units/L (7-52); Albumin 3.9 g/dL (3.5-5.7); Albumin/Globulin Ratio 1.5 (1.1-2.2); Alkaline Phosphatase 120 Units/L (34-104); Aspartate Amino Transferase 350 Units/L (13-39); Bilirubin,Direct 3.4 mg/dL (0.0-0.2); Bilirubin,Indirect 1.5 mg/dL (0.0-1.0); Bilirubin,Total 4.9 mg/dL (0.3-1.0); Globulin 2.6 g/dL (2.4-3.5); Total Protein 6.5 g/dL (6.4-8.9)
[2021-11-30] MEDS ORDERED: *HR* Propofol 200 MG/20 ML VIAL IVP ONE (18:36)
[2021-12-01] MEDS: niCARdipine 20 MG/200 ML MLS IVC SCH ×7 (00:17→19:32)
[2021-12-01] MEDS: Artificial Tears SOLN 15 ML BOTTLE BOTH EYES SCH ×6 (00:30→19:47)
[2021-12-01] MEDS: Insulin LISPRO 300 UNITS/3 ML VIAL SUBQ SCH ×4 (00:30→17:54)
[2021-12-01] MEDS: Dexmedetomidine HCl 400 MCG/100 ML MLS IVC SCH ×8 (01:47→23:02)
[2021-12-01] MEDS: Albumin 25% 25gram/100mL 25 GM/100 ML IV.SOLN IVPB SCH ×4 (01:47→19:47)
[2021-12-01] MEDS: PrismaSATE BGK 4/2.5 5,000 ML CRRT SCH ×2 (03:26→03:27)
[2021-12-01 04:08] LABS: Basophils % 0.3 %; Hemoglobin 7.6 g/dL (12.9-16.9)
[2021-12-01 04:09] LABS: VBG Ionized Calcium 1.09 mmol/L (1.15-1.35)
[2021-12-01 04:10] LABS: Basophils # 0.1 K/mcL (0.0-0.2); Eosinophils # 0.1 K/mcL (0.0-0.6); Eosinophils % 0.9 %; Hematocrit 23.9 % (37.5-50.1); Immature Platelets 18.6 % (1.1-6.1); Lymphocytes # 1.1 K/mcL (0.6-4.6); Lymphocytes % 7.6 %; Mean Corpuscular HGB Conc 31.8 g/dL (31.6-35.5); Mean Corpuscular Hemoglobin 29.8 pg (28.0-33.3); Mean Corpuscular Volume 93.7 fL (83.0-100.0); Mean Platelet Volume 13.3 fL (9.4-12.4); Monocytes # 0.6 K/mcL (0.0-1.3); Monocytes % 4.1 %; Neutrophils # 12.9 K/mcL (1.6-8.9); Nucleated Red Blood Cells 0.2 /100 WBC (0); Red Blood Count 2.55 M/mcL (4.19-5.50); Segmented Neutrophils % 86.1 %
[2021-12-01 04:14] LABS: Platelet Count 36 K/mcL (140-400)
[2021-12-01 04:26] LABS: ABG Base Excess 0 mEq/L (-2 to 3); ABG HCO3 24 mEq/L (21-27); ABG Oxygen Saturation 97 % (95-98); ABG PCO2 36 mmHg (35-45); ABG PH 7.44 pH Units (7.32-7.45); ABG PO2 88 mmHg (85-104); ABG TCO2 26 mEq/L (20-26); Blood Gas Modality AF; Blood Gas VT 420 cc
[2021-12-01 04:31] LABS: Alanine Aminotransferase < 3 Units/L (7-52); Albumin 4.2 g/dL (3.5-5.7); Albumin/Globulin Ratio 1.6 (1.1-2.2); Alkaline Phosphatase 116 Units/L (34-104); Aspartate Amino Transferase 271 Units/L (13-39); BUN/Creatinine Ratio 8 (6-26); Bilirubin,Total 5.3 mg/dL (0.3-1.0); Blood Urea Nitrogen 15 mg/dL (6-20); Calcium 8.6 mg/dL (8.6-10.3); Carbon Dioxide 25 mEq/L (23-29); Chloride 100 mEq/L (98-107); Globulin 2.7 g/dL (2.4-3.5); Glucose 106 mg/dL (70-105); Magnesium 2.6 mg/dL (1.6-2.6); Osmolality,Calculated 277 (280-300); Phosphorous 2.1 mg/dL (2.7-4.5); Potassium 4.5 mEq/L (3.5-5.1); Sodium 133 mEq/L (136-145); Total Protein 6.9 g/dL (6.4-8.9); eGFR For African Americans 54 (> 60); eGFR For Non-African Americans 44 (> 60)
[2021-12-01] MEDS: Pantoprazole 40 MG VIAL IVP SCH ×2 (06:26→17:53)
[2021-12-01] MEDS: FentaNYL (PF) 2,500 MCG/50 ML IV.SOLN IVC SCH ×2 (07:10→19:40)
[2021-12-01] MEDS: Magic Mouthwash 10 ML UD Cup PO SCH ×3 (07:41→16:09)
[2021-12-01] MEDS: Ferrous Sulfate Oral Soln 300 MG/5 ML UDC GTUBE SCH ×2 (07:41→19:48)
[2021-12-01] MEDS: Docusate Oral Soln 100 MG/10 ML UDC PO SCH ×2 (07:41→19:48)
[2021-12-01] MEDS: Lactobacillus 1 EACH CAP.SPRINK PO SCH ×2 (07:41→19:48)
[2021-12-01] MEDS: Chlorhexidine Rinse 15 ML MOUTHWASH MM SCH ×2 (07:41→19:48)
[2021-12-01] MEDS: Aspirin 81 MG TAB.CHEW PO SCH (07:41)
[2021-12-01] MEDS: Nicotine 21 MG PATCH.TD24 TD SCH (07:42)
[2021-12-01] MEDS: CeFAZolin 2 GM/100 ML BAG IVPB SCH ×3 (07:43→23:44)
[2021-12-01 10:38] LABS: Bilirubin,Direct 3.7 mg/dL (0.0-0.2); Bilirubin,Indirect 1.6 mg/dL (0.0-1.0)
[2021-12-01 23:18] LABS: VBG Ionized Calcium 1.08 mmol/L (1.15-1.35)
[2021-12-01 23:32] LABS: Alanine Aminotransferase < 3 Units/L (7-52); Albumin/Globulin Ratio 1.3 (1.1-2.2); Alkaline Phosphatase 107 Units/L (34-104); Aspartate Amino Transferase 192 Units/L (13-39); BUN/Creatinine Ratio 10 (6-26); Bilirubin,Total 5.5 mg/dL (0.3-1.0); Blood Urea Nitrogen 26 mg/dL (6-20); Calcium 8.5 mg/dL (8.6-10.3); Carbon Dioxide 23 mEq/L (23-29); Chloride 99 mEq/L (98-107); Globulin 3.1 g/dL (2.4-3.5); Glucose 123 mg/dL (70-105); Magnesium 2.6 mg/dL (1.6-2.6); Osmolality,Calculated 280 (280-300); Phosphorous 3.5 mg/dL (2.7-4.5); Potassium 4.2 mEq/L (3.5-5.1); Sodium 132 mEq/L (136-145); Total Protein 7.1 g/dL (6.4-8.9); eGFR For African Americans 35 (> 60); eGFR For Non-African Americans 29 (> 60)
[2021-12-02] MEDS: Artificial Tears SOLN 15 ML BOTTLE BOTH EYES SCH ×6 (00:30→20:34)
[2021-12-02] MEDS: Dexmedetomidine HCl 400 MCG/100 ML MLS IVC SCH ×7 (02:00→22:20)
[2021-12-02] MEDS: Albumin 25% 25gram/100mL 25 GM/100 ML IV.SOLN IVPB SCH ×4 (02:26→20:28)
[2021-12-02] MEDS: niCARdipine 20 MG/200 ML MLS IVC SCH ×5 (02:30→21:03)
[2021-12-02] MEDS: Insulin LISPRO 300 UNITS/3 ML VIAL SUBQ SCH ×4 (02:30→18:14)
[2021-12-02] MEDS: FentaNYL (PF) 2,500 MCG/50 ML IV.SOLN IVC SCH ×3 (02:33→21:04)
[2021-12-02 04:20] LABS: ABG Base Excess -1 mEq/L (-2 to 3); ABG HCO3 23 mEq/L (21-27); ABG Oxygen Saturation 99 % (95-98); ABG PCO2 38 mmHg (35-45); ABG PO2 116 mmHg (85-104); ABG TCO2 24 mEq/L (20-26); Blood Gas Modality AF; Blood Gas VT 420 cc; VBG Ionized Calcium 1.09 mmol/L (1.15-1.35)
[2021-12-02 04:22] LABS: Hematocrit 26.3 % (37.5-50.1); Hemoglobin 8.3 g/dL (12.9-16.9); Immature Platelets 20.2 % (1.1-6.1); Mean Corpuscular HGB Conc 31.6 g/dL (31.6-35.5); Mean Corpuscular Hemoglobin 29.9 pg (28.0-33.3); Mean Corpuscular Volume 94.6 fL (83.0-100.0); Mean Platelet Volume 13.5 fL (9.4-12.4); Red Blood Count 2.78 M/mcL (4.19-5.50); Red Cell Distribution Width 19.1 % (11.5-14.5); Segmented Neutrophils % 82.7 %; White Blood Count 14.7 K/mcL (4.3-11.1)
[2021-12-02 04:23] LABS: Basophils % 0.3 %; Eosinophils # 0.2 K/mcL (0.0-0.6); Immature Granulocytes % 1.8 % (0-4); Lymphocytes # 1.2 K/mcL (0.6-4.6); Lymphocytes % 8.4 %; Monocytes # 0.9 K/mcL (0.0-1.3); Monocytes % 5.8 %; Neutrophils # 12.2 K/mcL (1.6-8.9); Nucleated Red Blood Cells 0.2 /100 WBC (0); Platelet Count 44 K/mcL (140-400)
[2021-12-02 05:24] LABS: Alanine Aminotransferase < 3 Units/L (7-52); Albumin 4.3 g/dL (3.5-5.7); Albumin/Globulin Ratio 1.7 (1.1-2.2); Alkaline Phosphatase 102 Units/L (34-104); Aspartate Amino Transferase 177 Units/L (13-39); BUN/Creatinine Ratio 11 (6-26); Bilirubin,Direct 3.8 mg/dL (0.0-0.2); Bilirubin,Indirect 1.4 mg/dL (0.0-1.0); Bilirubin,Total 5.2 mg/dL (0.3-1.0); Blood Urea Nitrogen 30 mg/dL (6-20); Calcium 8.4 mg/dL (8.6-10.3); Carbon Dioxide 23 mEq/L (23-29); Chloride 97 mEq/L (98-107); Globulin 2.5 g/dL (2.4-3.5); Glucose 121 mg/dL (70-105); Magnesium 2.7 mg/dL (1.6-2.6); Osmolality,Calculated 283 (280-300); Phosphorous 3.6 mg/dL (2.7-4.5); Potassium 4.2 mEq/L (3.5-5.1); Sodium 133 mEq/L (136-145); Total Protein 6.8 g/dL (6.4-8.9); eGFR For African Americans 31 (> 60); eGFR For Non-African Americans 26 (> 60)
[2021-12-02] MEDS: Pantoprazole 40 MG VIAL IVP SCH ×2 (06:57→16:53)
[2021-12-02] MEDS: Nicotine 21 MG PATCH.TD24 TD SCH (07:41)
[2021-12-02] MEDS: CeFAZolin 2 GM/100 ML BAG IVPB SCH ×2 (07:43→17:32)
[2021-12-02] MEDS: Chlorhexidine Rinse 15 ML MOUTHWASH MM SCH ×2 (07:43→20:32)
[2021-12-02] MEDS: Docusate Oral Soln 100 MG/10 ML UDC PO SCH ×2 (07:43→20:32)
[2021-12-02] MEDS: Magic Mouthwash 10 ML UD Cup PO SCH ×3 (07:43→16:53)
[2021-12-02] MEDS: Aspirin 81 MG TAB.CHEW PO SCH (07:43)
[2021-12-02] MEDS: Ferrous Sulfate Oral Soln 300 MG/5 ML UDC GTUBE SCH ×2 (07:43→20:32)
[2021-12-02] MEDS: Lactobacillus 1 EACH CAP.SPRINK PO SCH ×2 (07:43→20:32)
[2021-12-02] MEDS ORDERED: 0.9 % Sodium Chloride 1,000 ML PRIME SCH (07:45)
[2021-12-02] MEDS ORDERED: 0.9 % Sodium Chloride 250 ML IVC PRN (07:45)
[2021-12-02 09:17] LABS: Lipase 194 Units/L (11-82)
[2021-12-02] MEDS ORDERED: *HR* Midazolam HCl 5 MG/5 ML VIAL IVP ONE (11:02)
[2021-12-02] MEDS ORDERED: *HR* FentaNYL (PF) 100 MCG/2 ML VIAL ONE (11:02)
[2021-12-02] MEDS ORDERED: *HR* Rocuronium Bromide 50 MG/5 ML VIAL ONE (11:04)
[2021-12-02] MEDS ORDERED: *HR* Etomidate 40 MG/20 ML VIAL IVP ONE (11:06)
[2021-12-02] MEDS ORDERED: CeFAZolin Syr 2,000MG/20 ML 2,000 MG/20 ML SYRINGE IVPB ONE (11:48)
[2021-12-02] MEDS: Norepinephrine 8 MG/250 ML IV.SOLN IVC SCH ×3 (11:59→22:52)
[2021-12-02] MEDS ORDERED: *HR* Heparin 10,000 UNIT/10 ML VIAL IV PRN (14:49)
[2021-12-02 15:45] LABS: RBC,Peritoneal Fluid 2000 RBC/mcL
[2021-12-02 15:59] LABS: Appearance of Peritoneal Fl HAZY (Clear)
[2021-12-02 17:24] LABS: Basophils,Peritoneal Fluid 0 %; Eosinophils,Peritoneal Fluid 0 %
[2021-12-02] MEDS ORDERED: 0.9 % Sodium Chloride 1,000 ML IVC ONE (18:03)
[2021-12-02] MEDS ORDERED: Perflutren Lipid Microsphere 1.3 ML in 0.9 % Sodium Chloride 8.7 ML IVP PRN (18:28)
[2021-12-02 18:44] LABS: Basophils % 0.2 %; Nucleated Red Blood Cells 0.2 /100 WBC (0)
[2021-12-02 18:46] LABS: Eosinophils # 0.1 K/mcL (0.0-0.6); Eosinophils % 0.4 %; Hematocrit 20.3 % (37.5-50.1); Hemoglobin 6.3 g/dL (12.9-16.9); Immature Granulocytes % 2.4 % (0-4); Immature Platelets 20.8 % (1.1-6.1); Lymphocytes # 1.4 K/mcL (0.6-4.6); Lymphocytes % 6.7 %; Mean Corpuscular Hemoglobin 30.1 pg (28.0-33.3); Mean Corpuscular Volume 97.1 fL (83.0-100.0); Mean Platelet Volume 13.5 fL (9.4-12.4); Monocytes # 1.2 K/mcL (0.0-1.3); Monocytes % 5.9 %; Neutrophils # 17.4 K/mcL (1.6-8.9); Red Blood Count 2.09 M/mcL (4.19-5.50); Red Cell Distribution Width 19.2 % (11.5-14.5); Segmented Neutrophils % 84.4 %; White Blood Count 20.6 K/mcL (4.3-11.1)
[2021-12-02 18:48] LABS: Platelet Count 80 K/mcL (140-400)
[2021-12-02 19:00] LABS: Calcium 7.8 mg/dL (8.6-10.3); Potassium 4.4 mEq/L (3.5-5.1)
[2021-12-02 20:27] LABS: Hematocrit 17.1 % (37.5-50.1)
[2021-12-02] MEDS: Cholestyramine 4 GM POWD.PACK PO SCH (20:28)
[2021-12-02 20:30] LABS: Hemoglobin 5.5 g/dL (12.9-16.9)
[2021-12-02 20:35] LABS: INR 1.5; Prothrombin Time 16.6 Seconds (9.4-12.1)
[2021-12-02 20:37] LABS: Activated Partial Thrombo Time 34.7 Seconds (26.0-36.0)
[2021-12-02] MEDS ORDERED: [UNRECOGNIZED DRUG - OTHER] IVPB ONE (21:49)
[2021-12-02] MEDS ORDERED: HUM PROTHROMBIN CPLX IVPB ONE (21:49)
[2021-12-02] MEDS ORDERED: WATER FOR INJ IVPB ONE (21:49)
[2021-12-03] MEDS: Artificial Tears SOLN 15 ML BOTTLE BOTH EYES SCH ×7 (00:37→23:03)
[2021-12-03] MEDS: niCARdipine 20 MG/200 ML MLS IVC SCH ×7 (00:37→23:03)
[2021-12-03] MEDS: Phenylephrine 20 MG in 0.9 % Sodium Chloride 250 ML IVC SCH ×2 (00:37→18:18)
[2021-12-03] MEDS: CeFAZolin 2 GM/100 ML BAG IVPB SCH ×3 (00:51→15:34)
[2021-12-03] MEDS: Insulin LISPRO 300 UNITS/3 ML VIAL SUBQ SCH ×4 (00:54→18:17)
[2021-12-03] MEDS: Dexmedetomidine HCl 400 MCG/100 ML MLS IVC SCH ×6 (01:45→21:55)
[2021-12-03] MEDS: Norepinephrine 8 MG/250 ML IV.SOLN IVC SCH ×4 (02:26→22:53)
[2021-12-03] MEDS: Albumin 25% 25gram/100mL 25 GM/100 ML IV.SOLN IVPB SCH ×4 (02:33→19:40)
[2021-12-03 03:27] LABS: Hematocrit 15.5 % (37.5-50.1); Mean Corpuscular Hemoglobin 30.8 pg (28.0-33.3); Mean Corpuscular Volume 99.4 fL (83.0-100.0); Mean Platelet Volume 13.5 fL (9.4-12.4); Nucleated Red Blood Cells 1.4 /100 WBC (0); Red Blood Count 1.56 M/mcL (4.19-5.50); Red Cell Distribution Width 17.3 % (11.5-14.5); White Blood Count 15.2 K/mcL (4.3-11.1)
[2021-12-03 03:30] LABS: Platelet Count 69 K/mcL (140-400)
[2021-12-03 03:31] LABS: VBG Ionized Calcium 0.95 mmol/L (1.15-1.35)
[2021-12-03 03:32] LABS: Hemoglobin 4.8 g/dL (12.9-16.9)
[2021-12-03 03:34] LABS: INR 1.5; Prothrombin Time 16.7 Seconds (9.4-12.1)
[2021-12-03 03:36] LABS: Activated Partial Thrombo Time 35.2 Seconds (26.0-36.0)
[2021-12-03 03:44] LABS: Albumin 3.6 g/dL (3.5-5.7); Albumin/Globulin Ratio 1.6 (1.1-2.2); Calcium 7.7 mg/dL (8.6-10.3); Globulin 2.3 g/dL (2.4-3.5); Magnesium 2.5 mg/dL (1.6-2.6); Potassium 4.9 mEq/L (3.5-5.1); Total Protein 5.9 g/dL (6.4-8.9)
[2021-12-03 04:04] LABS: ABG Base Excess -11 mEq/L (-2 to 3); ABG HCO3 15 mEq/L (21-27); ABG Oxygen Saturation 99 % (95-98); ABG PCO2 28 mmHg (35-45); ABG PH 7.32 pH Units (7.32-7.45); ABG PO2 154 mmHg (85-104); ABG TCO2 15 mEq/L (20-26); Blood Gas Modality ASSIST CONTROL; Blood Gas VT 420 cc
[2021-12-03 04:07] LABS: Lymphocytes # 2.1 K/mcL (0.6-4.6); Monocytes # 0.3 K/mcL (0.0-1.3); Neutrophils # 12.8 K/mcL (1.6-8.9); Platelet Estimate Decreased (Normal)
[2021-12-03] MEDS: FentaNYL (PF) 2,500 MCG/50 ML IV.SOLN IVC SCH ×3 (04:43→23:02)
[2021-12-03] MEDS: Ferrous Sulfate Oral Soln 300 MG/5 ML UDC GTUBE SCH ×2 (07:26→19:42)
[2021-12-03] MEDS: Magic Mouthwash 10 ML UD Cup PO SCH ×3 (07:26→15:33)
[2021-12-03] MEDS: Cholestyramine 4 GM POWD.PACK PO SCH ×2 (07:26→15:33)
[2021-12-03] MEDS: Chlorhexidine Rinse 15 ML MOUTHWASH MM SCH ×2 (07:26→19:42)
[2021-12-03] MEDS: Aspirin 81 MG TAB.CHEW PO SCH (07:26)
[2021-12-03] MEDS: Docusate Oral Soln 100 MG/10 ML UDC PO SCH ×2 (07:26→19:42)
[2021-12-03] MEDS: Nicotine 21 MG PATCH.TD24 TD SCH (07:26)
[2021-12-03] MEDS: Lactobacillus 1 EACH CAP.SPRINK PO SCH ×2 (07:27→19:42)
[2021-12-03] MEDS: Pantoprazole 40 MG VIAL IVP SCH ×2 (07:29→18:17)
[2021-12-03] MEDS: Calcium Gluconate 1gm/50mL 1 GM/50 ML BAG IVPB PRN (08:19)
[2021-12-03] MEDS: PrismaSATE BGK 4/2.5 5,000 ML CRRT SCH ×2 (09:06)
[2021-12-03] MEDS ORDERED: *HR* Heparin 10,000 UNIT/10 ML VIAL IV PRN (09:34)
[2021-12-03] MEDS ORDERED: 0.9 % Sodium Chloride 250 ML IVC PRN (09:34)
[2021-12-03 10:12] LABS: Hematocrit 19.2 % (37.5-50.1); Hemoglobin 6.2 g/dL (12.9-16.9)
[2021-12-03 10:26] LABS: INR 1.6; Prothrombin Time 17.5 Seconds (9.4-12.1)
[2021-12-03] MEDS ORDERED: 0.9 % Sodium Chloride 250 ML ONE (11:57)
[2021-12-03 20:11] LABS: Basophils % 0.2 %
[2021-12-03 20:13] LABS: Eosinophils # 0.1 K/mcL (0.0-0.6); Eosinophils % 0.9 %; Hematocrit 18.1 % (37.5-50.1); Hemoglobin 6.2 g/dL (12.9-16.9); Immature Granulocytes % 1.3 % (0-4); Immature Platelets 20.5 % (1.1-6.1); Lymphocytes # 1.6 K/mcL (0.6-4.6); Lymphocytes % 10.2 %; Mean Corpuscular HGB Conc 34.3 g/dL (31.6-35.5); Mean Corpuscular Volume 87.4 fL (83.0-100.0); Monocytes # 1.3 K/mcL (0.0-1.3); Neutrophils # 12.5 K/mcL (1.6-8.9); Nucleated Red Blood Cells 0.2 /100 WBC (0); Platelet Count 96 K/mcL (140-400); Red Blood Count 2.07 M/mcL (4.19-5.50); Red Cell Distribution Width 17.6 % (11.5-14.5); Segmented Neutrophils % 79.4 %; White Blood Count 15.7 K/mcL (4.3-11.1)
[2021-12-03 20:26] LABS: INR 1.4; Prothrombin Time 15.7 Seconds (9.4-12.1)
[2021-12-04] MEDS: CeFAZolin 2 GM/100 ML BAG IVPB SCH ×3 (01:36→16:11)
[2021-12-04] MEDS: Albumin 25% 25gram/100mL 25 GM/100 ML IV.SOLN IVPB SCH ×4 (01:38→21:55)
[2021-12-04] MEDS: niCARdipine 20 MG/200 ML MLS IVC SCH ×6 (03:58→20:23)
[2021-12-04] MEDS: Artificial Tears SOLN 15 ML BOTTLE BOTH EYES SCH ×6 (03:58→23:30)
[2021-12-04 04:00] LABS: Basophils % 0.1 %; Mean Platelet Volume 12.9 fL (9.4-12.4); Nucleated Red Blood Cells 0.4 /100 WBC (0)
[2021-12-04] MEDS: Dexmedetomidine HCl 400 MCG/100 ML MLS IVC SCH ×7 (04:00→23:43)
[2021-12-04 04:02] LABS: Eosinophils # 0.2 K/mcL (0.0-0.6); Eosinophils % 1.3 %; Immature Granulocytes % 1.6 % (0-4); Lymphocytes # 1.7 K/mcL (0.6-4.6); Lymphocytes % 10.2 %; Mean Corpuscular Hemoglobin 30.2 pg (28.0-33.3); Mean Corpuscular Volume 88.9 fL (83.0-100.0); Monocytes # 1.2 K/mcL (0.0-1.3); Monocytes % 7.1 %; Neutrophils # 13.2 K/mcL (1.6-8.9); Platelet Count 115 K/mcL (140-400); Red Blood Count 1.62 M/mcL (4.19-5.50); Red Cell Distribution Width 18.9 % (11.5-14.5); Segmented Neutrophils % 79.7 %; White Blood Count 16.6 K/mcL (4.3-11.1)
[2021-12-04 04:05] LABS: VBG Ionized Calcium 0.97 mmol/L (1.15-1.35)
[2021-12-04 04:09] LABS: ABG Base Excess -1 mEq/L (-2 to 3); ABG HCO3 23 mEq/L (21-27); ABG Oxygen Saturation 96 % (95-98); ABG PCO2 33 mmHg (35-45); ABG PH 7.45 pH Units (7.32-7.45); ABG PO2 74 mmHg (85-104); ABG TCO2 24 mEq/L (20-26); Blood Gas Modality ASSIST CONTROL; Blood Gas VT 420 cc
[2021-12-04 04:10] LABS: Hematocrit 14.4 % (37.5-50.1); Hemoglobin 4.9 g/dL (12.9-16.9)
[2021-12-04 04:11] LABS: INR 1.5; Prothrombin Time 17.2 Seconds (9.4-12.1)
[2021-12-04 04:13] LABS: Activated Partial Thrombo Time 31.6 Seconds (26.0-36.0)
[2021-12-04 04:19] LABS: Alanine Aminotransferase < 3 Units/L (7-52); Albumin/Globulin Ratio 1.6 (1.1-2.2); Alkaline Phosphatase 65 Units/L (34-104); Aspartate Amino Transferase 74 Units/L (13-39); BUN/Creatinine Ratio 9 (6-26); Bilirubin,Total 5.7 mg/dL (0.3-1.0); Blood Urea Nitrogen 30 mg/dL (6-20); Calcium 8.6 mg/dL (8.6-10.3); Carbon Dioxide 24 mEq/L (23-29); Chloride 100 mEq/L (98-107); Globulin 2.5 g/dL (2.4-3.5); Glucose 117 mg/dL (70-105); Magnesium 2.2 mg/dL (1.6-2.6); Osmolality,Calculated 293 (280-300); Phosphorous 4.6 mg/dL (2.7-4.5); Potassium 4.2 mEq/L (3.5-5.1); Sodium 138 mEq/L (136-145); Total Protein 6.5 g/dL (6.4-8.9); eGFR For African Americans 27 (> 60); eGFR For Non-African Americans 23 (> 60)
[2021-12-04 04:50] LABS: Hematocrit 15.6 % (37.5-50.1)
[2021-12-04 04:53] LABS: Hemoglobin 5.4 g/dL (12.9-16.9)
[2021-12-04] MEDS: FentaNYL (PF) 2,500 MCG/50 ML IV.SOLN IVC SCH ×2 (04:58→14:39)
[2021-12-04] MEDS: Norepinephrine 8 MG/250 ML IV.SOLN IVC SCH ×2 (04:59→13:36)
[2021-12-04] MEDS: Pantoprazole 40 MG VIAL IVP SCH ×2 (05:06→16:12)
[2021-12-04] MEDS: Insulin LISPRO 300 UNITS/3 ML VIAL SUBQ SCH ×5 (05:08→23:42)
[2021-12-04] MEDS: Chlorhexidine Rinse 15 ML MOUTHWASH MM SCH ×2 (07:32→21:53)
[2021-12-04] MEDS: Lactobacillus 1 EACH CAP.SPRINK PO SCH ×2 (07:34→21:54)
[2021-12-04] MEDS: Docusate Oral Soln 100 MG/10 ML UDC PO SCH ×2 (07:34→21:54)
[2021-12-04] MEDS: Ferrous Sulfate Oral Soln 300 MG/5 ML UDC GTUBE SCH ×2 (07:34→21:54)
[2021-12-04] MEDS: Magic Mouthwash 10 ML UD Cup PO SCH ×3 (07:34→16:13)
[2021-12-04] MEDS: Aspirin 81 MG TAB.CHEW PO SCH (07:34)
[2021-12-04] MEDS: Cholestyramine 4 GM POWD.PACK PO SCH ×2 (07:34→16:11)
[2021-12-04] MEDS: Nicotine 21 MG PATCH.TD24 TD SCH (08:26)
[2021-12-04] MEDS: PrismaSATE BGK 4/2.5 5,000 ML CRRT SCH ×2 (08:26→08:27)
[2021-12-04 11:43] LABS: Hematocrit 23.8 % (37.5-50.1)
[2021-12-04 11:48] LABS: Hemoglobin 8.1 g/dL (12.9-16.9)
[2021-12-04] MEDS: Phenylephrine 20 MG in 0.9 % Sodium Chloride 250 ML IVC SCH (17:15)
[2021-12-05] MEDS: FentaNYL (PF) 2,500 MCG/50 ML IV.SOLN IVC SCH ×3 (00:32→20:24)
[2021-12-05 00:34] LABS: Fluid Source for Albumin PERITONEAL FL
[2021-12-05] MEDS: Dexmedetomidine HCl 400 MCG/100 ML MLS IVC SCH ×7 (02:49→22:56)
[2021-12-05] MEDS: Albumin 25% 25gram/100mL 25 GM/100 ML IV.SOLN IVPB SCH ×4 (02:50→19:37)
[2021-12-05 03:37] LABS: ABG Base Excess -3 mEq/L (-2 to 3); ABG HCO3 20 mEq/L (21-27); ABG Oxygen Saturation 96 % (95-98); ABG PCO2 30 mmHg (35-45); ABG PH 7.44 pH Units (7.32-7.45); ABG PO2 75 mmHg (85-104); ABG TCO2 21 mEq/L (20-26); Blood Gas VT 420 cc
[2021-12-05 03:59] LABS: VBG Ionized Calcium 1.04 mmol/L (1.15-1.35)
[2021-12-05 04:03] LABS: Basophils # 0.1 K/mcL (0.0-0.2); Basophils % 0.3 %; Eosinophils # 0.4 K/mcL (0.0-0.6); Eosinophils % 1.5 %; Hematocrit 22.7 % (37.5-50.1); Hemoglobin 7.5 g/dL (12.9-16.9); Immature Granulocytes % 2.4 % (0-4); Lymphocytes # 1.7 K/mcL (0.6-4.6); Lymphocytes % 6.7 %; Mean Corpuscular Hemoglobin 29.9 pg (28.0-33.3); Mean Corpuscular Volume 90.4 fL (83.0-100.0); Mean Platelet Volume 12.9 fL (9.4-12.4); Monocytes # 1.3 K/mcL (0.0-1.3); Monocytes % 5.1 %; Neutrophils # 20.7 K/mcL (1.6-8.9); Nucleated Red Blood Cells 0.4 /100 WBC (0); Platelet Count 137 K/mcL (140-400); Red Blood Count 2.51 M/mcL (4.19-5.50); Red Cell Distribution Width 19.4 % (11.5-14.5); White Blood Count 24.6 K/mcL (4.3-11.1)
[2021-12-05 04:10] LABS: INR 1.5; Prothrombin Time 16.3 Seconds (9.4-12.1)
[2021-12-05 04:12] LABS: Activated Partial Thrombo Time 33.5 Seconds (26.0-36.0)
[2021-12-05] MEDS: niCARdipine 20 MG/200 ML MLS IVC SCH ×3 (04:19→08:48)
[2021-12-05] MEDS: Artificial Tears SOLN 15 ML BOTTLE BOTH EYES SCH ×5 (04:19→19:38)
[2021-12-05 04:27] LABS: Alanine Aminotransferase < 3 Units/L (7-52); Albumin 4.2 g/dL (3.5-5.7); Albumin/Globulin Ratio 1.5 (1.1-2.2); Alkaline Phosphatase 75 Units/L (34-104); Aspartate Amino Transferase 74 Units/L (13-39); BUN/Creatinine Ratio 9 (6-26); Bilirubin,Total 7.1 mg/dL (0.3-1.0); Blood Urea Nitrogen 39 mg/dL (6-20); Calcium 9.1 mg/dL (8.6-10.3); Carbon Dioxide 20 mEq/L (23-29); Chloride 96 mEq/L (98-107); Globulin 2.8 g/dL (2.4-3.5); Glucose 106 mg/dL (70-105); Magnesium 2.3 mg/dL (1.6-2.6); Osmolality,Calculated 286 (280-300); Phosphorous 4.7 mg/dL (2.7-4.5); Potassium 4.3 mEq/L (3.5-5.1); Sodium 133 mEq/L (136-145); eGFR For African Americans 20 (> 60); eGFR For Non-African Americans 16 (> 60)
[2021-12-05] MEDS: Insulin LISPRO 300 UNITS/3 ML VIAL SUBQ SCH ×3 (05:33→18:28)
[2021-12-05] MEDS: Pantoprazole 40 MG VIAL IVP SCH ×2 (06:11→16:55)
[2021-12-05] MEDS: PrismaSATE BGK 4/2.5 5,000 ML CRRT SCH ×2 (07:30)
[2021-12-05] MEDS ORDERED: *HR* Heparin 10,000 UNIT/10 ML VIAL IV PRN (08:08)
[2021-12-05] MEDS ORDERED: 0.9 % Sodium Chloride 250 ML IVC PRN ×2 (08:08→08:18)
[2021-12-05] MEDS ORDERED: Albumin 25% 25gram/100mL 25 GM/100 ML IV.SOLN IVPB PRN (08:08)
[2021-12-05] MEDS: Docusate Oral Soln 100 MG/10 ML UDC PO SCH ×2 (08:46→19:37)
[2021-12-05] MEDS: Cholestyramine 4 GM POWD.PACK PO SCH ×2 (08:46→16:52)
[2021-12-05] MEDS: Nicotine 21 MG PATCH.TD24 TD SCH (08:46)
[2021-12-05] MEDS: Chlorhexidine Rinse 15 ML MOUTHWASH MM SCH ×2 (08:46→19:37)
[2021-12-05] MEDS: Ferrous Sulfate Oral Soln 300 MG/5 ML UDC GTUBE SCH ×2 (08:47→19:37)
[2021-12-05] MEDS: Aspirin 81 MG TAB.CHEW PO SCH (08:47)
[2021-12-05] MEDS: Lactobacillus 1 EACH CAP.SPRINK PO SCH ×2 (08:47→19:37)
[2021-12-05] MEDS: CeFAZolin 2 GM/100 ML BAG IVPB SCH (08:47)
[2021-12-05] MEDS: Magic Mouthwash 10 ML UD Cup PO SCH ×3 (08:47→16:55)
[2021-12-05] MEDS: Scopolamine Patch 1.5 MG PATCH.TD72 TD SCH (11:57)
[2021-12-05 14:07] LABS: Alanine Aminotransferase < 3 Units/L (7-52); Albumin 4.5 g/dL (3.5-5.7); Alkaline Phosphatase 84 Units/L (34-104); Aspartate Amino Transferase 89 Units/L (13-39); Bilirubin,Direct 5.5 mg/dL (0.0-0.2); Bilirubin,Indirect 2.1 mg/dL (0.0-1.0); Bilirubin,Total 7.6 mg/dL (0.3-1.0); Globulin 2.2 g/dL (2.4-3.5); Lactate Dehydrogenase 281 Units/L (140-271); Total Protein 6.7 g/dL (6.4-8.9)
[2021-12-05] MEDS: Norepinephrine 8 MG/250 ML IV.SOLN IVC SCH (15:56)
[2021-12-05 16:44] LABS: RBC,Pleural Fluid 1431000 RBC/mcL
[2021-12-05 17:02] LABS: Total Protein,Pleural Fluid 5.2 g/dL
[2021-12-05] MEDS: Phenylephrine 20 MG in 0.9 % Sodium Chloride 250 ML IVC SCH (17:18)
[2021-12-05 17:55] LABS: Appearance of Pleural Fl Bloody (Clear)
[2021-12-05 17:58] LABS: Basophils,Pleural Fluid 0 %
[2021-12-06] MEDS: Artificial Tears SOLN 15 ML BOTTLE BOTH EYES SCH ×7 (00:16→23:15)
[2021-12-06] MEDS: Insulin LISPRO 300 UNITS/3 ML VIAL SUBQ SCH ×5 (00:17→23:12)
[2021-12-06] MEDS: Albumin 25% 25gram/100mL 25 GM/100 ML IV.SOLN IVPB SCH ×4 (02:10→20:15)
[2021-12-06] MEDS: Dexmedetomidine HCl 400 MCG/100 ML MLS IVC SCH ×7 (02:34→22:44)
[2021-12-06 03:39] LABS: VBG Ionized Calcium 1.12 mmol/L (1.15-1.35)
[2021-12-06 03:43] LABS: ABG Base Excess -1 mEq/L (-2 to 3); ABG HCO3 24 mEq/L (21-27); ABG Oxygen Saturation 97 % (95-98); ABG PCO2 37 mmHg (35-45); ABG PH 7.41 pH Units (7.32-7.45); ABG PO2 92 mmHg (85-104); ABG TCO2 25 mEq/L (20-26); Blood Gas VT 420 cc
[2021-12-06 03:46] LABS: Immature Granulocytes % 1.8 % (0-4); Nucleated Red Blood Cells 0.2 /100 WBC (0); Platelet Count 129 K/mcL (140-400); Red Cell Distribution Width 21.2 % (11.5-14.5)
[2021-12-06 03:49] LABS: Basophils # 0.1 K/mcL (0.0-0.2); Basophils % 0.2 %; Eosinophils # 0.4 K/mcL (0.0-0.6); Eosinophils % 1.8 %; Hemoglobin 7.7 g/dL (12.9-16.9); Immature Platelets 22.4 % (1.1-6.1); Lymphocytes # 1.2 K/mcL (0.6-4.6); Lymphocytes % 5.4 %; Mean Corpuscular HGB Conc 32.1 g/dL (31.6-35.5); Mean Corpuscular Hemoglobin 30.6 pg (28.0-33.3); Mean Corpuscular Volume 95.2 fL (83.0-100.0); Mean Platelet Volume 13.2 fL (9.4-12.4); Monocytes % 4.3 %; Neutrophils # 19.5 K/mcL (1.6-8.9); Red Blood Count 2.52 M/mcL (4.19-5.50); Segmented Neutrophils % 86.5 %; White Blood Count 22.5 K/mcL (4.3-11.1)
[2021-12-06 04:03] LABS: Alanine Aminotransferase < 3 Units/L (7-52); Albumin 4.4 g/dL (3.5-5.7); Albumin/Globulin Ratio 1.6 (1.1-2.2); Alkaline Phosphatase 76 Units/L (34-104); Aspartate Amino Transferase 95 Units/L (13-39); BUN/Creatinine Ratio 9 (6-26); Blood Urea Nitrogen 29 mg/dL (6-20); Calcium 9.5 mg/dL (8.6-10.3); Carbon Dioxide 23 mEq/L (23-29); Chloride 95 mEq/L (98-107); Globulin 2.8 g/dL (2.4-3.5); Glucose 104 mg/dL (70-105); Magnesium 2.2 mg/dL (1.6-2.6); Osmolality,Calculated 280 (280-300); Phosphorous 3.5 mg/dL (2.7-4.5); Potassium 4.1 mEq/L (3.5-5.1); Sodium 132 mEq/L (136-145); Total Protein 7.2 g/dL (6.4-8.9); eGFR For African Americans 27 (> 60); eGFR For Non-African Americans 22 (> 60)
[2021-12-06] MEDS: FentaNYL (PF) 2,500 MCG/50 ML IV.SOLN IVC SCH ×3 (04:57→22:34)
[2021-12-06] MEDS: Pantoprazole 40 MG VIAL IVP SCH ×2 (07:01→17:00)
[2021-12-06] MEDS: PrismaSATE BGK 4/2.5 5,000 ML CRRT SCH ×2 (08:01→08:02)
[2021-12-06] MEDS: Docusate Oral Soln 100 MG/10 ML UDC PO SCH ×2 (08:11→20:15)
[2021-12-06] MEDS: Cholestyramine 4 GM POWD.PACK PO SCH ×2 (08:11→16:47)
[2021-12-06] MEDS: Chlorhexidine Rinse 15 ML MOUTHWASH MM SCH ×2 (08:11→20:15)
[2021-12-06] MEDS: Nicotine 21 MG PATCH.TD24 TD SCH (08:11)
[2021-12-06] MEDS: Ferrous Sulfate Oral Soln 300 MG/5 ML UDC GTUBE SCH ×2 (08:11→20:15)
[2021-12-06] MEDS: Lactobacillus 1 EACH CAP.SPRINK PO SCH ×2 (08:11→20:15)
[2021-12-06] MEDS: Aspirin 81 MG TAB.CHEW PO SCH (08:11)
[2021-12-06] MEDS: Magic Mouthwash 10 ML UD Cup PO SCH ×3 (08:12→16:47)
[2021-12-06] MEDS ORDERED: Albumin Human 5% 12.5 GM/250 ML IV.SOLN ONE (08:35)
[2021-12-06] MEDS: CeFAZolin 2 GM/100 ML BAG IVPB SCH (08:47)
[2021-12-06] MEDS: Ondansetron 4 MG/2 ML VIAL IVP PRN ×2 (09:18→23:27)
[2021-12-06 09:19] LABS: RBC,Peritoneal Fluid 124000 RBC/mcL
[2021-12-06 09:20] LABS: Appearance of Peritoneal Fl BLOODY (Clear)
[2021-12-06 09:41] LABS: Total Protein,Peritoneal Fluid 4.5 g/dL
[2021-12-06 09:52] LABS: Basophils,Peritoneal Fluid 0 %
[2021-12-06] MEDS: Albumin Human 5% 12.5 GM/250 ML IV.SOLN IVC SCH ×2 (10:04→14:08)
[2021-12-06 13:43] LABS: Activated Partial Thrombo Time 35.8 Seconds (26.0-36.0); INR 1.4; Prothrombin Time 15.3 Seconds (9.4-12.1)
[2021-12-06] MEDS: Acetylcysteine 10% 2 ML INHSOL IH SCH ×2 (16:14→23:32)
[2021-12-06] MEDS: Phenylephrine 20 MG in 0.9 % Sodium Chloride 250 ML IVC SCH (18:18)
[2021-12-06] MEDS: Ipratropium/Albuterol Neb 3 ML IH PRN (23:32)
[2021-12-07] MEDS: Atropine Sulfate 1% 40 DROP/2 ML BOTTLE SL PRN ×2 (02:48→16:31)
[2021-12-07] MEDS: Artificial Tears SOLN 15 ML BOTTLE BOTH EYES SCH ×6 (03:24→23:17)
[2021-12-07] MEDS: Insulin LISPRO 300 UNITS/3 ML VIAL SUBQ SCH ×4 (03:24→23:17)
[2021-12-07] MEDS: Acetylcysteine 10% 2 ML INHSOL IH SCH ×4 (03:28→21:17)
[2021-12-07] MEDS: Ipratropium/Albuterol Neb 3 ML IH PRN ×4 (03:28→21:16)
[2021-12-07 03:34] LABS: ABG Base Excess -4 mEq/L (-2 to 3); ABG HCO3 21 mEq/L (21-27); ABG Oxygen Saturation 98 % (95-98); ABG PCO2 36 mmHg (35-45); ABG PH 7.37 pH Units (7.32-7.45); ABG PO2 100 mmHg (85-104); ABG TCO2 22 mEq/L (20-26); Blood Gas VT 420 cc
[2021-12-07] MEDS ORDERED: 0.9 % Sodium Chloride 1,000 ML ONE (03:39)
[2021-12-07 04:43] LABS: Basophils % 0.2 %; Hematocrit 22.3 % (37.5-50.1); Lymphocytes % 5.1 %; Mean Corpuscular Volume 97.4 fL (83.0-100.0); Mean Platelet Volume 13.5 fL (9.4-12.4); Red Blood Count 2.29 M/mcL (4.19-5.50)
[2021-12-07 04:45] LABS: Eosinophils # 0.3 K/mcL (0.0-0.6); Eosinophils % 1.3 %; Hemoglobin 7.2 g/dL (12.9-16.9); Immature Granulocytes % 1.2 % (0-4); Immature Platelets 23.6 % (1.1-6.1); Mean Corpuscular HGB Conc 32.3 g/dL (31.6-35.5); Mean Corpuscular Hemoglobin 31.4 pg (28.0-33.3); Monocytes # 0.8 K/mcL (0.0-1.3); Monocytes % 4.2 %; Neutrophils # 17.5 K/mcL (1.6-8.9); Nucleated Red Blood Cells 0.2 /100 WBC (0); Platelet Count 119 K/mcL (140-400); Red Cell Distribution Width 22.6 % (11.5-14.5); White Blood Count 19.9 K/mcL (4.3-11.1)
[2021-12-07 04:46] LABS: VBG Ionized Calcium 1.15 mmol/L (1.15-1.35)
[2021-12-07 04:52] LABS: INR 1.3; Prothrombin Time 14.9 Seconds (9.4-12.1)
[2021-12-07 04:54] LABS: Activated Partial Thrombo Time 35.5 Seconds (26.0-36.0)
[2021-12-07 05:06] LABS: Alanine Aminotransferase < 3 Units/L (7-52); Albumin 3.9 g/dL (3.5-5.7); Albumin/Globulin Ratio 1.7 (1.1-2.2); Alkaline Phosphatase 64 Units/L (34-104); Aspartate Amino Transferase 106 Units/L (13-39); BUN/Creatinine Ratio 9 (6-26); Bilirubin,Direct 4.4 mg/dL (0.0-0.2); Bilirubin,Indirect 1.5 mg/dL (0.0-1.0); Bilirubin,Total 5.9 mg/dL (0.3-1.0); Blood Urea Nitrogen 34 mg/dL (6-20); Calcium 8.5 mg/dL (8.6-10.3); Carbon Dioxide 19 mEq/L (23-29); Chloride 99 mEq/L (98-107); Globulin 2.3 g/dL (2.4-3.5); Glucose 82 mg/dL (70-105); Magnesium 1.9 mg/dL (1.6-2.6); Osmolality,Calculated 281 (280-300); Phosphorous 3.6 mg/dL (2.7-4.5); Potassium 4.1 mEq/L (3.5-5.1); Sodium 132 mEq/L (136-145); Total Protein 6.2 g/dL (6.4-8.9); eGFR For African Americans 22 (> 60); eGFR For Non-African Americans 18 (> 60)
[2021-12-07] MEDS: Dexmedetomidine HCl 400 MCG/100 ML MLS IVC SCH ×6 (05:20→22:38)
[2021-12-07] MEDS: Pantoprazole 40 MG VIAL IVP SCH ×2 (06:08→16:30)
[2021-12-07] MEDS: Norepinephrine 8 MG/250 ML IV.SOLN IVC SCH (07:16)
[2021-12-07] MEDS ORDERED: *HR* Heparin 10,000 UNIT/10 ML VIAL IV PRN (07:41)
[2021-12-07] MEDS ORDERED: 0.9 % Sodium Chloride 250 ML IVC PRN (07:41)
[2021-12-07] MEDS ORDERED: Albumin 25% 25gram/100mL 25 GM/100 ML IV.SOLN IVPB PRN (07:41)
[2021-12-07] MEDS: FentaNYL (PF) 2,500 MCG/50 ML IV.SOLN IVC SCH ×2 (08:00→18:42)
[2021-12-07] MEDS: Nicotine 21 MG PATCH.TD24 TD SCH (09:16)
[2021-12-07] MEDS: Chlorhexidine Rinse 15 ML MOUTHWASH MM SCH ×2 (09:16→19:23)
[2021-12-07] MEDS: Magic Mouthwash 10 ML UD Cup PO SCH ×3 (09:16→16:30)
[2021-12-07] MEDS: Cholestyramine 4 GM POWD.PACK PO SCH ×2 (09:16→16:30)
[2021-12-07] MEDS: PrismaSATE BGK 4/2.5 5,000 ML CRRT SCH ×2 (09:17)
[2021-12-07] MEDS: Aspirin 81 MG TAB.CHEW PO SCH (09:17)
[2021-12-07] MEDS: Lactobacillus 1 EACH CAP.SPRINK PO SCH ×2 (09:17→19:23)
[2021-12-07] MEDS: Docusate Oral Soln 100 MG/10 ML UDC PO SCH ×2 (09:17→19:23)
[2021-12-07] MEDS: Ferrous Sulfate Oral Soln 300 MG/5 ML UDC GTUBE SCH ×2 (09:17→19:23)
[2021-12-07] MEDS: CeFAZolin 2 GM/100 ML BAG IVPB SCH (09:19)
[2021-12-07] MEDS ORDERED: *HR* Midazolam HCl 5 MG/5 ML VIAL IVP ONE (14:51)
[2021-12-07] MEDS: Phenylephrine 20 MG in 0.9 % Sodium Chloride 250 ML IVC SCH (16:31)
[2021-12-08] MEDS: Dexmedetomidine HCl 400 MCG/100 ML MLS IVC SCH ×7 (02:07→21:10)
[2021-12-08] MEDS ORDERED: *HR* Midazolam HCl 5 MG/5 ML VIAL IVP ONE (02:33)
[2021-12-08] MEDS: Atropine Sulfate 1% 40 DROP/2 ML BOTTLE SL PRN (03:20)
[2021-12-08] MEDS: Artificial Tears SOLN 15 ML BOTTLE BOTH EYES SCH ×5 (03:20→19:28)
[2021-12-08] MEDS: Ipratropium/Albuterol Neb 3 ML IH PRN ×3 (03:26→15:46)
[2021-12-08] MEDS: Acetylcysteine 10% 2 ML INHSOL IH SCH ×2 (03:26→07:37)
[2021-12-08 04:25] LABS: ABG Base Excess -1 mEq/L (-2 to 3); ABG HCO3 25 mEq/L (21-27); ABG Oxygen Saturation 97 % (95-98); ABG PCO2 42 mmHg (35-45); ABG PH 7.38 pH Units (7.32-7.45); ABG PO2 97 mmHg (85-104); ABG TCO2 26 mEq/L (20-26); Blood Gas Modality AF; Blood Gas VT 420 cc
[2021-12-08] MEDS: FentaNYL (PF) 2,500 MCG/50 ML IV.SOLN IVC SCH ×3 (04:31→19:27)
[2021-12-08 04:45] LABS: VBG Ionized Calcium 1.19 mmol/L (1.15-1.35)
[2021-12-08 04:46] LABS: Basophils % 0.2 %; Eosinophils # 0.2 K/mcL (0.0-0.6); Hematocrit 24.9 % (37.5-50.1); Hemoglobin 7.8 g/dL (12.9-16.9); Immature Granulocytes % 0.9 % (0-4); Lymphocytes # 1.1 K/mcL (0.6-4.6); Lymphocytes % 5.2 %; Mean Corpuscular HGB Conc 31.3 g/dL (31.6-35.5); Mean Corpuscular Hemoglobin 30.8 pg (28.0-33.3); Mean Corpuscular Volume 98.4 fL (83.0-100.0); Mean Platelet Volume 12.9 fL (9.4-12.4); Monocytes # 1.1 K/mcL (0.0-1.3); Monocytes % 4.9 %; Platelet Count 128 K/mcL (140-400); Red Blood Count 2.53 M/mcL (4.19-5.50); Red Cell Distribution Width 23.4 % (11.5-14.5); Segmented Neutrophils % 87.8 %; White Blood Count 21.6 K/mcL (4.3-11.1)
[2021-12-08 05:13] LABS: Alanine Aminotransferase < 3 Units/L (7-52); Albumin 3.9 g/dL (3.5-5.7); Albumin/Globulin Ratio 1.3 (1.1-2.2); Alkaline Phosphatase 79 Units/L (34-104); Aspartate Amino Transferase 139 Units/L (13-39); BUN/Creatinine Ratio 8 (6-26); Bilirubin,Direct 4.5 mg/dL (0.0-0.2); Bilirubin,Indirect 1.9 mg/dL (0.0-1.0); Bilirubin,Total 6.4 mg/dL (0.3-1.0); Blood Urea Nitrogen 25 mg/dL (6-20); Calcium 9.6 mg/dL (8.6-10.3); Carbon Dioxide 25 mEq/L (23-29); Chloride 95 mEq/L (98-107); Globulin 3.1 g/dL (2.4-3.5); Glucose 104 mg/dL (70-105); Magnesium 2.1 mg/dL (1.6-2.6); Osmolality,Calculated 279 (280-300); Phosphorous 3.3 mg/dL (2.7-4.5); Potassium 4.5 mEq/L (3.5-5.1); Sodium 132 mEq/L (136-145); eGFR For African Americans 27 (> 60); eGFR For Non-African Americans 22 (> 60)
[2021-12-08 05:21] LABS: INR 1.3; Prothrombin Time 14.7 Seconds (9.4-12.1)
[2021-12-08 05:23] LABS: Activated Partial Thrombo Time 33.8 Seconds (26.0-36.0)
[2021-12-08 05:50] LABS: Anisocytosis 2+ (Not Present); Platelet Estimate Normal (Normal)
[2021-12-08] MEDS: Insulin LISPRO 300 UNITS/3 ML VIAL SUBQ SCH ×3 (05:57→17:29)
[2021-12-08] MEDS: Pantoprazole 40 MG VIAL IVP SCH ×2 (05:58→16:38)
[2021-12-08] MEDS: Nicotine 21 MG PATCH.TD24 TD SCH (08:41)
[2021-12-08] MEDS: Cholestyramine 4 GM POWD.PACK PO SCH ×2 (08:41→16:38)
[2021-12-08] MEDS: Chlorhexidine Rinse 15 ML MOUTHWASH MM SCH ×2 (08:41→08:48)
[2021-12-08] MEDS: Magic Mouthwash 10 ML UD Cup PO SCH ×3 (08:41→16:38)
[2021-12-08] MEDS: Lactobacillus 1 EACH CAP.SPRINK PO SCH ×2 (08:48→20:02)
[2021-12-08] MEDS: Docusate Oral Soln 100 MG/10 ML UDC PO SCH ×2 (08:48→20:02)
[2021-12-08] MEDS: Ferrous Sulfate Oral Soln 300 MG/5 ML UDC GTUBE SCH ×2 (08:48→20:02)
[2021-12-08] MEDS: Aspirin 81 MG TAB.CHEW PO SCH (08:48)
[2021-12-08] MEDS: PrismaSATE BGK 4/2.5 5,000 ML CRRT SCH ×2 (08:49)
[2021-12-08] MEDS ORDERED: *HR* Rocuronium Bromide 50 MG/5 ML VIAL IVP ONE (09:20)
[2021-12-08] MEDS: CeFAZolin 2 GM/100 ML BAG IVPB SCH (10:08)
[2021-12-08] MEDS: Scopolamine Patch 1.5 MG PATCH.TD72 TD SCH (11:43)
[2021-12-08 15:20] LABS: HCV Quant Interpretation DETECTED (Not Detected); HCV Quant Log 6.43 log IU/mL
[2021-12-08] MEDS: Phenylephrine 20 MG in 0.9 % Sodium Chloride 250 ML IVC SCH (21:04)
[2021-12-09] MEDS: Insulin LISPRO 300 UNITS/3 ML VIAL SUBQ SCH ×5 (00:06→23:24)
[2021-12-09] MEDS: Artificial Tears SOLN 15 ML BOTTLE BOTH EYES SCH ×7 (00:06→23:09)
[2021-12-09] MEDS: Dexmedetomidine HCl 400 MCG/100 ML MLS IVC SCH ×8 (00:12→22:36)
[2021-12-09 00:17] LABS: Basophils # 0.1 K/mcL (0.0-0.2); Basophils % 0.3 %; Eosinophils # 0.4 K/mcL (0.0-0.6); Hemoglobin 8.3 g/dL (12.9-16.9); Immature Granulocytes % 0.8 % (0-4); Lymphocytes # 1.3 K/mcL (0.6-4.6); Lymphocytes % 6.4 %; Mean Corpuscular HGB Conc 30.7 g/dL (31.6-35.5); Mean Corpuscular Hemoglobin 31.2 pg (28.0-33.3); Mean Corpuscular Volume 101.5 fL (83.0-100.0); Mean Platelet Volume 12.9 fL (9.4-12.4); Monocytes # 0.9 K/mcL (0.0-1.3); Monocytes % 4.2 %; Platelet Count 128 K/mcL (140-400); Red Blood Count 2.66 M/mcL (4.19-5.50); Red Cell Distribution Width 23.2 % (11.5-14.5); Segmented Neutrophils % 86.3 %; White Blood Count 20.9 K/mcL (4.3-11.1)
[2021-12-09 00:44] LABS: Anisocytosis 2+ (Not Present); Platelet Estimate Normal (Normal)
[2021-12-09 03:47] LABS: VBG Ionized Calcium 1.12 mmol/L (1.15-1.35)
[2021-12-09 04:03] LABS: Hematocrit 25.2 % (37.5-50.1); Hemoglobin 7.6 g/dL (12.9-16.9)
[2021-12-09 04:15] LABS: INR 1.3; Prothrombin Time 14.6 Seconds (9.4-12.1)
[2021-12-09 04:17] LABS: Activated Partial Thrombo Time 34.6 Seconds (26.0-36.0)
[2021-12-09] MEDS ORDERED: Calcium Gluconate 1gm/50mL 1 GM/50 ML BAG IVPB PRN (04:28)
[2021-12-09 04:31] LABS: ABG Base Excess -1 mEq/L (-2 to 3); ABG HCO3 26 mEq/L (21-27); ABG Oxygen Saturation 100 % (95-98); ABG PCO2 58 mmHg (35-45); ABG PH 7.26 pH Units (7.32-7.45); ABG PO2 312 mmHg (85-104); ABG TCO2 28 mEq/L (20-26); Blood Gas Modality AF; Blood Gas VT 420 cc
[2021-12-09 04:34] LABS: Alanine Aminotransferase < 3 Units/L (7-52); Albumin 3.2 g/dL (3.5-5.7); Albumin/Globulin Ratio 1.1 (1.1-2.2); Alkaline Phosphatase 72 Units/L (34-104); Aspartate Amino Transferase 107 Units/L (13-39); BUN/Creatinine Ratio 9 (6-26); Bilirubin,Direct 3.7 mg/dL (0.0-0.2); Bilirubin,Indirect 1.4 mg/dL (0.0-1.0); Bilirubin,Total 5.1 mg/dL (0.3-1.0); Blood Urea Nitrogen 31 mg/dL (6-20); Carbon Dioxide 21 mEq/L (23-29); Chloride 102 mEq/L (98-107); Globulin 2.8 g/dL (2.4-3.5); Glucose 91 mg/dL (70-105); Magnesium 1.9 mg/dL (1.6-2.6); Osmolality,Calculated 284 (280-300); Phosphorous 4.4 mg/dL (2.7-4.5); Potassium 4.1 mEq/L (3.5-5.1); Sodium 134 mEq/L (136-145); eGFR For African Americans 24 (> 60); eGFR For Non-African Americans 20 (> 60)
[2021-12-09] MEDS: FentaNYL (PF) 2,500 MCG/50 ML IV.SOLN IVC SCH ×2 (05:03→14:03)
[2021-12-09 05:09] LABS: Basophils % 0.2 %; Eosinophils # 0.3 K/mcL (0.0-0.6); Eosinophils % 1.3 %; Immature Granulocytes % 0.8 % (0-4); Immature Platelets 20.4 % (1.1-6.1); Lymphocytes # 0.9 K/mcL (0.6-4.6); Lymphocytes % 4.1 %; Mean Corpuscular HGB Conc 29.9 g/dL (31.6-35.5); Mean Corpuscular Hemoglobin 30.9 pg (28.0-33.3); Mean Corpuscular Volume 103.3 fL (83.0-100.0); Mean Platelet Volume 13.2 fL (9.4-12.4); Monocytes # 0.8 K/mcL (0.0-1.3); Monocytes % 3.7 %; Platelet Count 133 K/mcL (140-400); Red Blood Count 2.43 M/mcL (4.19-5.50); Segmented Neutrophils % 89.9 %; White Blood Count 21.1 K/mcL (4.3-11.1)
[2021-12-09] MEDS: Pantoprazole 40 MG VIAL IVP SCH ×2 (05:11→17:43)
[2021-12-09] MEDS ORDERED: 0.9 % Sodium Chloride 250 ML IVC PRN (08:16)
[2021-12-09] MEDS ORDERED: *HR* Heparin 10,000 UNIT/10 ML VIAL IV PRN (08:16)
[2021-12-09] MEDS: Nicotine 21 MG PATCH.TD24 TD SCH (08:21)
[2021-12-09] MEDS: Chlorhexidine Rinse 15 ML MOUTHWASH MM SCH ×2 (08:21→20:15)
[2021-12-09] MEDS: Magic Mouthwash 10 ML UD Cup PO SCH ×3 (08:21→16:32)
[2021-12-09] MEDS: CeFAZolin 2 GM/100 ML BAG IVPB SCH (09:17)
[2021-12-09] MEDS: Ferrous Sulfate Oral Soln 300 MG/5 ML UDC GTUBE SCH ×2 (11:59→20:16)
[2021-12-09] MEDS: Cholestyramine 4 GM POWD.PACK PO SCH ×2 (11:59→16:30)
[2021-12-09] MEDS: Lactobacillus 1 EACH CAP.SPRINK PO SCH ×2 (11:59→20:15)
[2021-12-09] MEDS: Docusate Oral Soln 100 MG/10 ML UDC PO SCH ×2 (11:59→20:15)
[2021-12-09] MEDS: Aspirin 81 MG TAB.CHEW PO SCH (16:29)
[2021-12-09] MEDS: ceFAZolin 1,000 MG in Water for inj. (sterile) 10 ML IVP SCH (17:42)
[2021-12-09] MEDS: Phenylephrine 20 MG in 0.9 % Sodium Chloride 250 ML IVC SCH (17:43)
[2021-12-09] MEDS ORDERED: CeFAZolin 2 GM/100 ML BAG IVPB SCH (18:00)
[2021-12-09] MEDS: Norepinephrine 8 MG/250 ML IV.SOLN IVC SCH (19:08)
[2021-12-10] MEDS: FentaNYL (PF) 2,500 MCG/50 ML IV.SOLN IVC SCH ×4 (00:21→20:33)
[2021-12-10] MEDS: Dexmedetomidine HCl 400 MCG/100 ML MLS IVC SCH ×6 (01:29→20:37)
[2021-12-10 03:22] LABS: VBG Ionized Calcium 1.18 mmol/L (1.15-1.35)
[2021-12-10 03:25] LABS: Basophils # 0.1 K/mcL (0.0-0.2); Basophils % 0.3 %; Eosinophils # 0.4 K/mcL (0.0-0.6); Eosinophils % 1.9 %; Hematocrit 26.4 % (37.5-50.1); Immature Granulocytes % 0.7 % (0-4); Lymphocytes # 0.9 K/mcL (0.6-4.6); Lymphocytes % 4.9 %; Mean Corpuscular HGB Conc 30.3 g/dL (31.6-35.5); Mean Corpuscular Hemoglobin 30.9 pg (28.0-33.3); Mean Corpuscular Volume 101.9 fL (83.0-100.0); Mean Platelet Volume 12.8 fL (9.4-12.4); Monocytes # 0.7 K/mcL (0.0-1.3); Monocytes % 3.9 %; Neutrophils # 16.5 K/mcL (1.6-8.9); Platelet Count 141 K/mcL (140-400); Red Blood Count 2.59 M/mcL (4.19-5.50); Red Cell Distribution Width 22.9 % (11.5-14.5); Segmented Neutrophils % 88.3 %; White Blood Count 18.7 K/mcL (4.3-11.1)
[2021-12-10 03:28] LABS: ABG Base Excess 0 mEq/L (-2 to 3); ABG HCO3 27 mEq/L (21-27); ABG Oxygen Saturation 100 % (95-98); ABG PCO2 54 mmHg (35-45); ABG PO2 303 mmHg (85-104); ABG TCO2 29 mEq/L (20-26); Blood Gas VT 450 cc
[2021-12-10 03:40] LABS: Calcium 9.5 mg/dL (8.6-10.3); Potassium 4.3 mEq/L (3.5-5.1)
[2021-12-10 03:42] LABS: Alanine Aminotransferase < 3 Units/L (7-52); Albumin 3.6 g/dL (3.5-5.7); Alkaline Phosphatase 93 Units/L (34-104); Aspartate Amino Transferase 114 Units/L (13-39); BUN/Creatinine Ratio 8 (6-26); Bilirubin,Direct 4.6 mg/dL (0.0-0.2); Bilirubin,Total 6.6 mg/dL (0.3-1.0); Blood Urea Nitrogen 26 mg/dL (6-20); Calcium 9.5 mg/dL (8.6-10.3); Carbon Dioxide 25 mEq/L (23-29); Chloride 95 mEq/L (98-107); Globulin 3.5 g/dL (2.4-3.5); Glucose 97 mg/dL (70-105); Magnesium 2.1 mg/dL (1.6-2.6); Osmolality,Calculated 277 (280-300); Phosphorous 3.8 mg/dL (2.7-4.5); Potassium 4.3 mEq/L (3.5-5.1); Sodium 131 mEq/L (136-145); Total Protein 7.1 g/dL (6.4-8.9); eGFR For African Americans 27 (> 60); eGFR For Non-African Americans 22 (> 60)
[2021-12-10 03:51] LABS: INR 1.3; Prothrombin Time 14.2 Seconds (9.4-12.1)
[2021-12-10 03:53] LABS: Activated Partial Thrombo Time 34.4 Seconds (26.0-36.0)
[2021-12-10] MEDS: Artificial Tears SOLN 15 ML BOTTLE BOTH EYES SCH ×6 (04:05→23:33)
[2021-12-10] MEDS: Pantoprazole 40 MG VIAL IVP SCH ×2 (05:01→17:01)
[2021-12-10] MEDS: Insulin LISPRO 300 UNITS/3 ML VIAL SUBQ SCH ×3 (05:01→19:17)
[2021-12-10] MEDS ORDERED: *HR* Midazolam HCl 5 MG/5 ML VIAL IVP ONE ×2 (09:03→09:09)
[2021-12-10] MEDS: Cholestyramine 4 GM POWD.PACK PO SCH ×2 (11:37→16:58)
[2021-12-10] MEDS: Lactobacillus 1 EACH CAP.SPRINK PO SCH ×2 (11:38→19:45)
[2021-12-10] MEDS: Ferrous Sulfate Oral Soln 300 MG/5 ML UDC GTUBE SCH ×2 (11:38→19:45)
[2021-12-10] MEDS: Aspirin 81 MG TAB.CHEW PO SCH (11:38)
[2021-12-10] MEDS: Docusate Oral Soln 100 MG/10 ML UDC PO SCH ×2 (11:38→19:45)
[2021-12-10] MEDS: Chlorhexidine Rinse 15 ML MOUTHWASH MM SCH ×2 (11:53→19:45)
[2021-12-10] MEDS: Nicotine 21 MG PATCH.TD24 TD SCH (11:53)
[2021-12-10] MEDS: Magic Mouthwash 10 ML UD Cup PO SCH ×3 (11:54→16:58)
[2021-12-10] MEDS: ceFAZolin 1,000 MG in Water for inj. (sterile) 10 ML IVP SCH (17:01)
[2021-12-10] MEDS: Phenylephrine 20 MG in 0.9 % Sodium Chloride 250 ML IVC SCH (19:17)
[2021-12-11] MEDS: Dexmedetomidine HCl 400 MCG/100 ML MLS IVC SCH ×7 (02:20→23:58)
[2021-12-11] MEDS: Insulin LISPRO 300 UNITS/3 ML VIAL SUBQ SCH ×4 (02:34→17:06)
[2021-12-11 03:37] LABS: Basophils # 0.1 K/mcL (0.0-0.2); Basophils % 0.3 %; Eosinophils # 0.3 K/mcL (0.0-0.6); Eosinophils % 1.7 %; Hematocrit 26.8 % (37.5-50.1); Hemoglobin 8.3 g/dL (12.9-16.9); Immature Granulocytes % 0.5 % (0-4); Lymphocytes # 0.9 K/mcL (0.6-4.6); Lymphocytes % 5.2 %; Mean Corpuscular Hemoglobin 31.1 pg (28.0-33.3); Mean Corpuscular Volume 100.4 fL (83.0-100.0); Mean Platelet Volume 11.7 fL (9.4-12.4); Monocytes # 0.8 K/mcL (0.0-1.3); Monocytes % 4.6 %; Neutrophils # 14.6 K/mcL (1.6-8.9); Platelet Count 150 K/mcL (140-400); Red Blood Count 2.67 M/mcL (4.19-5.50); Red Cell Distribution Width 22.2 % (11.5-14.5); Segmented Neutrophils % 87.7 %; White Blood Count 16.7 K/mcL (4.3-11.1)
[2021-12-11 03:44] LABS: VBG Ionized Calcium 1.19 mmol/L (1.15-1.35)
[2021-12-11] MEDS: Artificial Tears SOLN 15 ML BOTTLE BOTH EYES SCH ×5 (03:51→20:11)
[2021-12-11 04:00] LABS: Alanine Aminotransferase < 3 Units/L (7-52); Albumin 3.5 g/dL (3.5-5.7); Albumin/Globulin Ratio 0.9 (1.1-2.2); Alkaline Phosphatase 100 Units/L (34-104); Aspartate Amino Transferase 100 Units/L (13-39); BUN/Creatinine Ratio 10 (6-26); Bilirubin,Indirect 2.2 mg/dL (0.0-1.0); Bilirubin,Total 7.2 mg/dL (0.3-1.0); Blood Urea Nitrogen 40 mg/dL (6-20); Calcium 9.5 mg/dL (8.6-10.3); Carbon Dioxide 23 mEq/L (23-29); Chloride 93 mEq/L (98-107); Globulin 3.8 g/dL (2.4-3.5); Glucose 112 mg/dL (70-105); Magnesium 2.1 mg/dL (1.6-2.6); Osmolality,Calculated 277 (280-300); Phosphorous 3.7 mg/dL (2.7-4.5); Potassium 4.5 mEq/L (3.5-5.1); Sodium 128 mEq/L (136-145); Total Protein 7.3 g/dL (6.4-8.9); eGFR For African Americans 22 (> 60); eGFR For Non-African Americans 18 (> 60)
[2021-12-11 04:00] LABS: ABG Base Excess -2 mEq/L (-2 to 3); ABG HCO3 24 mEq/L (21-27); ABG Oxygen Saturation 97 % (95-98); ABG PCO2 45 mmHg (35-45); ABG PH 7.33 pH Units (7.32-7.45); ABG PO2 99 mmHg (85-104); ABG TCO2 26 mEq/L (20-26); Blood Gas VT 450 cc
[2021-12-11 04:02] LABS: INR 1.3
[2021-12-11 04:05] LABS: Activated Partial Thrombo Time 35.2 Seconds (26.0-36.0)
[2021-12-11] MEDS: Pantoprazole 40 MG VIAL IVP SCH ×2 (05:24→17:10)
[2021-12-11] MEDS: FentaNYL (PF) 2,500 MCG/50 ML IV.SOLN IVC SCH (05:51)
[2021-12-11] MEDS: Lactobacillus 1 EACH CAP.SPRINK PO SCH ×2 (07:40→20:11)
[2021-12-11] MEDS: Nicotine 21 MG PATCH.TD24 TD SCH (07:40)
[2021-12-11] MEDS: Aspirin 81 MG TAB.CHEW PO SCH (07:40)
[2021-12-11] MEDS: Cholestyramine 4 GM POWD.PACK PO SCH ×2 (07:40→15:35)
[2021-12-11] MEDS: Chlorhexidine Rinse 15 ML MOUTHWASH MM SCH ×2 (07:41→20:11)
[2021-12-11] MEDS: Ferrous Sulfate Oral Soln 300 MG/5 ML UDC GTUBE SCH ×2 (07:41→20:11)
[2021-12-11] MEDS: Magic Mouthwash 10 ML UD Cup PO SCH ×3 (07:41→15:35)
[2021-12-11] MEDS: Docusate Oral Soln 100 MG/10 ML UDC PO SCH ×2 (07:41→20:11)
[2021-12-11] MEDS: Norepinephrine 8 MG/250 ML IV.SOLN IVC SCH ×2 (09:11→20:23)
[2021-12-11] MEDS: Scopolamine Patch 1.5 MG PATCH.TD72 TD SCH (10:10)
[2021-12-11] MEDS: Metoclopramide 10 MG/2 ML VIAL IVP SCH ×2 (12:36→17:10)
[2021-12-11] MEDS: *HR* Heparin 5,000 UNIT/ML VIAL SQ SCH (17:05)
[2021-12-11] MEDS: ceFAZolin 1,000 MG in Water for inj. (sterile) 10 ML IVP SCH (17:05)
[2021-12-11] MEDS: Phenylephrine 20 MG in 0.9 % Sodium Chloride 250 ML IVC SCH (19:18)
[2021-12-12] MEDS: Artificial Tears SOLN 15 ML BOTTLE BOTH EYES SCH ×7 (00:01→23:15)
[2021-12-12] MEDS: Insulin LISPRO 300 UNITS/3 ML VIAL SUBQ SCH ×4 (00:01→18:42)
[2021-12-12] MEDS: Dexmedetomidine HCl 400 MCG/100 ML MLS IVC SCH ×6 (02:01→23:30)
[2021-12-12] MEDS: FentaNYL (PF) 2,500 MCG/50 ML IV.SOLN IVC SCH (02:51)
[2021-12-12] MEDS: Metoclopramide 10 MG/2 ML VIAL IVP SCH ×3 (02:55→18:03)
[2021-12-12 04:10] LABS: ABG Base Excess -2 mEq/L (-2 to 3); ABG HCO3 22 mEq/L (21-27); ABG Oxygen Saturation 99 % (95-98); ABG PCO2 35 mmHg (35-45); ABG PH 7.41 pH Units (7.32-7.45); ABG PO2 112 mmHg (85-104); ABG TCO2 23 mEq/L (20-26); Blood Gas Modality AF; Blood Gas VT 450 cc
[2021-12-12 04:29] LABS: VBG Ionized Calcium 1.13 mmol/L (1.15-1.35)
[2021-12-12 04:35] LABS: Basophils # 0.1 K/mcL (0.0-0.2); Basophils % 0.4 %; Eosinophils % 0.3 %; Hematocrit 25.6 % (37.5-50.1); Hemoglobin 7.9 g/dL (12.9-16.9); Immature Granulocytes % 0.6 % (0-4); Lymphocytes # 0.7 K/mcL (0.6-4.6); Lymphocytes % 5.3 %; Mean Corpuscular HGB Conc 30.9 g/dL (31.6-35.5); Mean Corpuscular Hemoglobin 29.9 pg (28.0-33.3); Mean Platelet Volume 12.1 fL (9.4-12.4); Monocytes # 0.6 K/mcL (0.0-1.3); Monocytes % 4.3 %; Neutrophils # 12.5 K/mcL (1.6-8.9); Platelet Count 145 K/mcL (140-400); Red Blood Count 2.64 M/mcL (4.19-5.50); Red Cell Distribution Width 21.7 % (11.5-14.5); Segmented Neutrophils % 89.1 %; White Blood Count 14.1 K/mcL (4.3-11.1)
[2021-12-12 04:44] LABS: INR 1.3; Prothrombin Time 14.7 Seconds (9.4-12.1)
[2021-12-12 04:46] LABS: Activated Partial Thrombo Time 35.9 Seconds (26.0-36.0)
[2021-12-12 05:06] LABS: Alanine Aminotransferase < 3 Units/L (7-52); Albumin 3.7 g/dL (3.5-5.7); Alkaline Phosphatase 138 Units/L (34-104); Aspartate Amino Transferase 99 Units/L (13-39); BUN/Creatinine Ratio 11 (6-26); Bilirubin,Direct 5.6 mg/dL (0.0-0.2); Bilirubin,Indirect 2.6 mg/dL (0.0-1.0); Bilirubin,Total 8.2 mg/dL (0.3-1.0); Blood Urea Nitrogen 53 mg/dL (6-20); Calcium 9.6 mg/dL (8.6-10.3); Carbon Dioxide 21 mEq/L (23-29); Chloride 91 mEq/L (98-107); Globulin 3.6 g/dL (2.4-3.5); Glucose 109 mg/dL (70-105); Magnesium 2.1 mg/dL (1.6-2.6); Osmolality,Calculated 283 (280-300); Phosphorous 3.3 mg/dL (2.7-4.5); Potassium 4.6 mEq/L (3.5-5.1); Sodium 129 mEq/L (136-145); Total Protein 7.3 g/dL (6.4-8.9); eGFR For African Americans 17 (> 60); eGFR For Non-African Americans 14 (> 60)
[2021-12-12] MEDS: *HR* Heparin 5,000 UNIT/ML VIAL SQ SCH ×2 (05:35→18:05)
[2021-12-12] MEDS: Pantoprazole 40 MG VIAL IVP SCH ×2 (05:35→18:03)
[2021-12-12 07:17] LABS: HCV Genotype by Sequencing 3A
[2021-12-12] MEDS ORDERED: *HR* Heparin 10,000 UNIT/10 ML VIAL IV PRN (08:58)
[2021-12-12] MEDS ORDERED: 0.9 % Sodium Chloride 250 ML IVC PRN (08:58)
[2021-12-12] MEDS: Magic Mouthwash 10 ML UD Cup PO SCH ×3 (09:14→15:11)
[2021-12-12] MEDS: Lactobacillus 1 EACH CAP.SPRINK PO SCH ×2 (09:14→20:22)
[2021-12-12] MEDS: Chlorhexidine Rinse 15 ML MOUTHWASH MM SCH ×2 (09:14→20:22)
[2021-12-12] MEDS: Aspirin 81 MG TAB.CHEW PO SCH (09:14)
[2021-12-12] MEDS: Docusate Oral Soln 100 MG/10 ML UDC PO SCH ×2 (09:14→20:22)
[2021-12-12] MEDS: Nicotine 21 MG PATCH.TD24 TD SCH (09:14)
[2021-12-12] MEDS: Ferrous Sulfate Oral Soln 300 MG/5 ML UDC GTUBE SCH ×2 (09:14→20:22)
[2021-12-12] MEDS: Cholestyramine 4 GM POWD.PACK PO SCH (09:14)
[2021-12-12] MEDS: *HR* OxyCODONE Oral Soln 5 MG/5 ML UD.LIQ GTUBE PRN ×3 (10:04→21:10)
[2021-12-12] MEDS: Norepinephrine 8 MG/250 ML IV.SOLN IVC SCH (11:17)
[2021-12-12] MEDS: ceFAZolin 1,000 MG in Water for inj. (sterile) 10 ML IVP SCH (18:04)
[2021-12-12] MEDS: *HR* FentaNYL (PF) 100 MCG/2 ML VIAL IVP PRN ×2 (18:32→23:14)
[2021-12-12] MEDS: Phenylephrine 20 MG in 0.9 % Sodium Chloride 250 ML IVC SCH (18:43)
[2021-12-13] MEDS: Insulin LISPRO 300 UNITS/3 ML VIAL SUBQ SCH ×5 (00:55→23:50)
[2021-12-13] MEDS: Dexmedetomidine HCl 400 MCG/100 ML MLS IVC SCH ×6 (02:45→21:38)
[2021-12-13] MEDS: *HR* FentaNYL (PF) 100 MCG/2 ML VIAL IVP PRN (04:00)
[2021-12-13] MEDS: *HR* OxyCODONE Oral Soln 5 MG/5 ML UD.LIQ GTUBE PRN (04:00)
[2021-12-13] MEDS: Artificial Tears SOLN 15 ML BOTTLE BOTH EYES SCH ×6 (04:08→23:50)
[2021-12-13 04:18] LABS: Basophils # 0.1 K/mcL (0.0-0.2); Basophils % 0.4 %; Eosinophils % 0.1 %; Hemoglobin 8.8 g/dL (12.9-16.9); Immature Granulocytes % 0.6 % (0-4); Lymphocytes # 0.6 K/mcL (0.6-4.6); Lymphocytes % 3.3 %; Mean Corpuscular HGB Conc 31.4 g/dL (31.6-35.5); Mean Corpuscular Hemoglobin 30.1 pg (28.0-33.3); Mean Corpuscular Volume 95.9 fL (83.0-100.0); Mean Platelet Volume 12.6 fL (9.4-12.4); Monocytes # 0.9 K/mcL (0.0-1.3); Monocytes % 5.4 %; Neutrophils # 15.4 K/mcL (1.6-8.9); Platelet Count 204 K/mcL (140-400); Red Blood Count 2.92 M/mcL (4.19-5.50); Red Cell Distribution Width 21.4 % (11.5-14.5); Segmented Neutrophils % 90.2 %; White Blood Count 17.1 K/mcL (4.3-11.1)
[2021-12-13 04:19] LABS: VBG Ionized Calcium 1.06 mmol/L (1.15-1.35)
[2021-12-13] MEDS: Metoclopramide 10 MG/2 ML VIAL IVP SCH ×2 (04:30→10:22)
[2021-12-13 04:31] LABS: ABG Base Excess 1 mEq/L (-2 to 3); ABG HCO3 24 mEq/L (21-27); ABG Oxygen Saturation 100 % (95-98); ABG PCO2 34 mmHg (35-45); ABG PH 7.47 pH Units (7.32-7.45); ABG PO2 177 mmHg (85-104); ABG TCO2 25 mEq/L (20-26); Blood Gas Modality ASSIST CONTROL; Blood Gas VT 450 cc
[2021-12-13 04:33] LABS: Alanine Aminotransferase < 3 Units/L (7-52); Albumin 3.9 g/dL (3.5-5.7); Alkaline Phosphatase 148 Units/L (34-104); Aspartate Amino Transferase 99 Units/L (13-39); BUN/Creatinine Ratio 11 (6-26); Bilirubin,Total 8.7 mg/dL (0.3-1.0); Blood Urea Nitrogen 37 mg/dL (6-20); Calcium 9.6 mg/dL (8.6-10.3); Carbon Dioxide 23 mEq/L (23-29); Chloride 94 mEq/L (98-107); Glucose 120 mg/dL (70-105); Magnesium 2.1 mg/dL (1.6-2.6); Osmolality,Calculated 286 (280-300); Phosphorous 2.9 mg/dL (2.7-4.5); Potassium 3.6 mEq/L (3.5-5.1); Sodium 133 mEq/L (136-145); Total Protein 7.9 g/dL (6.4-8.9); eGFR For African Americans 26 (> 60); eGFR For Non-African Americans 21 (> 60)
[2021-12-13 04:37] LABS: INR 1.3; Prothrombin Time 14.4 Seconds (9.4-12.1)
[2021-12-13 04:39] LABS: Activated Partial Thrombo Time 33.6 Seconds (26.0-36.0)
[2021-12-13] MEDS: *HR* Heparin 5,000 UNIT/ML VIAL SQ SCH ×2 (06:08→17:59)
[2021-12-13] MEDS: Pantoprazole 40 MG VIAL IVP SCH ×2 (06:09→17:59)
[2021-12-13] MEDS: Docusate Oral Soln 100 MG/10 ML UDC PO SCH ×2 (07:37→20:13)
[2021-12-13] MEDS: Magic Mouthwash 10 ML UD Cup PO SCH ×3 (07:37→17:59)
[2021-12-13] MEDS: Ferrous Sulfate Oral Soln 300 MG/5 ML UDC GTUBE SCH ×2 (07:37→20:13)
[2021-12-13] MEDS: Aspirin 81 MG TAB.CHEW PO SCH (07:38)
[2021-12-13] MEDS: Lactobacillus 1 EACH CAP.SPRINK PO SCH ×2 (07:38→20:13)
[2021-12-13] MEDS: Nicotine 21 MG PATCH.TD24 TD SCH (07:40)
[2021-12-13] MEDS: Norepinephrine 8 MG/250 ML IV.SOLN IVC SCH (08:07)
[2021-12-13] MEDS ORDERED: Lidocaine -MPF 1% 5 ML AMPUL ONE (09:52)
[2021-12-13] MEDS ORDERED: Lidocaine -MPF 1% 5 ML AMPUL INFILT ONE (10:15)
[2021-12-13] MEDS: Chlorhexidine Rinse 15 ML MOUTHWASH MM SCH ×2 (10:23→20:13)
[2021-12-13] MEDS: Phenylephrine 20 MG in 0.9 % Sodium Chloride 250 ML IVC SCH (15:10)
[2021-12-13] MEDS: ceFAZolin 1,000 MG in Water for inj. (sterile) 10 ML IVP SCH (17:58)
[2021-12-13 18:02] LABS: Clarity,Urine Ex.Turbid (Clear); Color,Urine Brown (Yellow); Urine Specimen Comments Mucoid Specimen
[2021-12-13 18:10] LABS: Bacteria,Urine Present per hpf (None-Few); Budding Yeast,Urine Present per hpf (None Seen); RBC,Urine Present per hpf (0-3); Squamous Epithelial Cell,Urine Present per hpf (None-Few); WBC,Urine TNTC per hpf (0-3)
[2021-12-14] MEDS: Artificial Tears SOLN 15 ML BOTTLE BOTH EYES SCH ×6 (03:35→23:56)
[2021-12-14 03:45] LABS: ABG Base Excess -1 mEq/L (-2 to 3); ABG HCO3 22 mEq/L (21-27); ABG Oxygen Saturation 95 % (95-98); ABG PCO2 29 mmHg (35-45); ABG PH 7.49 pH Units (7.32-7.45); ABG PO2 69 mmHg (85-104); ABG TCO2 23 mEq/L (20-26); Blood Gas VT 450 cc
[2021-12-14 04:04] LABS: Basophils % 0.3 %; Eosinophils # 0.1 K/mcL (0.0-0.6); Eosinophils % 0.6 %; Hematocrit 26.7 % (37.5-50.1); Hemoglobin 8.6 g/dL (12.9-16.9); Immature Granulocytes % 0.6 % (0-4); Lymphocytes # 0.8 K/mcL (0.6-4.6); Lymphocytes % 6.1 %; Mean Corpuscular HGB Conc 32.2 g/dL (31.6-35.5); Mean Corpuscular Hemoglobin 30.8 pg (28.0-33.3); Mean Corpuscular Volume 95.7 fL (83.0-100.0); Mean Platelet Volume 12.5 fL (9.4-12.4); Monocytes # 0.7 K/mcL (0.0-1.3); Monocytes % 5.6 %; Neutrophils # 11.3 K/mcL (1.6-8.9); Platelet Count 187 K/mcL (140-400); Red Blood Count 2.79 M/mcL (4.19-5.50); Red Cell Distribution Width 21.4 % (11.5-14.5); Segmented Neutrophils % 86.8 %; White Blood Count 13.1 K/mcL (4.3-11.1)
[2021-12-14 04:22] LABS: Alanine Aminotransferase < 3 Units/L (7-52); Albumin 3.6 g/dL (3.5-5.7); Albumin/Globulin Ratio 0.9 (1.1-2.2); Alkaline Phosphatase 142 Units/L (34-104); Aspartate Amino Transferase 83 Units/L (13-39); BUN/Creatinine Ratio 14 (6-26); Bilirubin,Total 7.2 mg/dL (0.3-1.0); Blood Urea Nitrogen 53 mg/dL (6-20); Calcium 9.2 mg/dL (8.6-10.3); Carbon Dioxide 24 mEq/L (23-29); Chloride 93 mEq/L (98-107); Globulin 3.8 g/dL (2.4-3.5); Glucose 109 mg/dL (70-105); Osmolality,Calculated 287 (280-300); Potassium 3.8 mEq/L (3.5-5.1); Sodium 131 mEq/L (136-145); Total Protein 7.4 g/dL (6.4-8.9); eGFR For African Americans 22 (> 60); eGFR For Non-African Americans 18 (> 60)
[2021-12-14] MEDS: Dexmedetomidine HCl 400 MCG/100 ML MLS IVC SCH ×5 (04:33→22:27)
[2021-12-14] MEDS: Pantoprazole 40 MG VIAL IVP SCH ×2 (04:35→18:27)
[2021-12-14] MEDS: *HR* Heparin 5,000 UNIT/ML VIAL SQ SCH ×2 (04:35→18:25)
[2021-12-14] MEDS: Insulin LISPRO 300 UNITS/3 ML VIAL SUBQ SCH ×4 (08:37→23:57)
[2021-12-14] MEDS ORDERED: *HR* Heparin 10,000 UNIT/10 ML VIAL IV PRN (08:46)
[2021-12-14] MEDS ORDERED: 0.9 % Sodium Chloride 250 ML IVC PRN (08:46)
[2021-12-14] MEDS: Aspirin 81 MG TAB.CHEW PO SCH (09:03)
[2021-12-14] MEDS: Ferrous Sulfate Oral Soln 300 MG/5 ML UDC GTUBE SCH ×2 (09:03→19:37)
[2021-12-14] MEDS: Magic Mouthwash 10 ML UD Cup PO SCH ×3 (09:03→16:16)
[2021-12-14] MEDS: Lactobacillus 1 EACH CAP.SPRINK PO SCH ×2 (09:03→19:37)
[2021-12-14] MEDS: Docusate Oral Soln 100 MG/10 ML UDC PO SCH ×2 (09:03→19:37)
[2021-12-14] MEDS: Nicotine 21 MG PATCH.TD24 TD SCH (09:04)
[2021-12-14] MEDS: Chlorhexidine Rinse 15 ML MOUTHWASH MM SCH ×2 (09:04→19:37)
[2021-12-14] MEDS: Norepinephrine 8 MG/250 ML IV.SOLN IVC SCH (11:29)
[2021-12-14] MEDS: Scopolamine Patch 1.5 MG PATCH.TD72 TD SCH (11:31)
[2021-12-14 14:35] LABS: Bacteria,Urine Few per hpf (None-Few); Bilirubin,Urine Small (Negative); Blood,Urine Large (Negative); Budding Yeast,Urine Many per hpf (None Seen); Clarity,Urine Ex.Turbid (Clear); Color,Urine Dark-Yellow (Yellow); Glucose,Urine (UA) Normal (Normal); Ketones,Urine Negative (Negative); Leukocyte Esterase,Urine Large (Negative); Nitrite,Urine Negative (Negative); PH,Urine 6.5 pH Units (5.0-8.0); Protein,Urine >=600 mg/dL (Neg-Trace); RBC,Urine 50-100 per hpf (0-3); Specific Gravity,Urine 1.029 (1.010-1.025); Squamous Epithelial Cell,Urine Few per hpf (None-Few); Urobilinogen,Urine Normal (Normal); WBC,Urine TNTC per hpf (0-3)
[2021-12-14] MEDS: Ondansetron 4 MG/2 ML VIAL IVP PRN (18:13)
[2021-12-14] MEDS: ceFAZolin 1,000 MG in Water for inj. (sterile) 10 ML IVP SCH (18:25)
[2021-12-14] MEDS: Phenylephrine 20 MG in 0.9 % Sodium Chloride 250 ML IVC SCH (18:29)
[2021-12-14] MEDS: *HR* FentaNYL (PF) 100 MCG/2 ML VIAL IVP PRN (18:39)
[2021-12-15] MEDS: Dexmedetomidine HCl 400 MCG/100 ML MLS IVC SCH ×7 (00:32→23:21)
[2021-12-15 03:44] LABS: Basophils % 0.3 %; Eosinophils # 0.1 K/mcL (0.0-0.6); Eosinophils % 0.6 %; Hematocrit 27.1 % (37.5-50.1); Hemoglobin 8.7 g/dL (12.9-16.9); Immature Granulocytes % 0.4 % (0-4); Lymphocytes # 0.8 K/mcL (0.6-4.6); Lymphocytes % 6.8 %; Mean Corpuscular HGB Conc 32.1 g/dL (31.6-35.5); Mean Corpuscular Hemoglobin 30.7 pg (28.0-33.3); Mean Corpuscular Volume 95.8 fL (83.0-100.0); Mean Platelet Volume 12.7 fL (9.4-12.4); Monocytes # 0.7 K/mcL (0.0-1.3); Neutrophils # 10.6 K/mcL (1.6-8.9); Platelet Count 224 K/mcL (140-400); Red Blood Count 2.83 M/mcL (4.19-5.50); Red Cell Distribution Width 21.2 % (11.5-14.5); Segmented Neutrophils % 85.9 %; White Blood Count 12.4 K/mcL (4.3-11.1)
[2021-12-15] MEDS: Artificial Tears SOLN 15 ML BOTTLE BOTH EYES SCH ×6 (03:54→23:23)
[2021-12-15] MEDS: *HR* FentaNYL (PF) 100 MCG/2 ML VIAL IVP PRN ×2 (03:54→10:07)
[2021-12-15 04:00] LABS: VBG Ionized Calcium 1.12 mmol/L (1.15-1.35)
[2021-12-15 04:28] LABS: ABG Base Excess 2 mEq/L (-2 to 3); ABG HCO3 26 mEq/L (21-27); ABG Oxygen Saturation 99 % (95-98); ABG PCO2 37 mmHg (35-45); ABG PH 7.46 pH Units (7.32-7.45); ABG PO2 131 mmHg (85-104); ABG TCO2 27 mEq/L (20-26); Blood Gas Modality ASSIST CONTROL; Blood Gas VT 450 cc
[2021-12-15 04:40] LABS: Calcium 9.1 mg/dL (8.6-10.3); Magnesium 1.8 mg/dL (1.6-2.6); Phosphorous 2.1 mg/dL (2.7-4.5); Potassium 3.4 mEq/L (3.5-5.1)
[2021-12-15] MEDS: Pantoprazole 40 MG VIAL IVP SCH ×2 (05:59→17:44)
[2021-12-15] MEDS: *HR* Heparin 5,000 UNIT/ML VIAL SQ SCH ×2 (06:00→17:44)
[2021-12-15] MEDS: Insulin LISPRO 300 UNITS/3 ML VIAL SUBQ SCH (06:00)
[2021-12-15] MEDS ORDERED: Potassium Chloride Elixir 20 MEQ/15 ML UDC PO ONE (07:51)
[2021-12-15] MEDS: Magic Mouthwash 10 ML UD Cup PO SCH ×3 (08:12→17:44)
[2021-12-15] MEDS: Aspirin 81 MG TAB.CHEW PO SCH (08:13)
[2021-12-15] MEDS: Chlorhexidine Rinse 15 ML MOUTHWASH MM SCH ×2 (08:13→20:54)
[2021-12-15] MEDS: Ferrous Sulfate Oral Soln 300 MG/5 ML UDC GTUBE SCH ×2 (08:13→20:55)
[2021-12-15] MEDS: Lactobacillus 1 EACH CAP.SPRINK PO SCH ×2 (08:13→20:55)
[2021-12-15] MEDS: Nicotine 21 MG PATCH.TD24 TD SCH (08:14)
[2021-12-15] MEDS: Docusate Oral Soln 100 MG/10 ML UDC PO SCH ×2 (08:14→20:54)
[2021-12-15] MEDS: Ondansetron 4 MG/2 ML VIAL IVP PRN (08:31)
[2021-12-15] MEDS ORDERED: Lidocaine 2% Syringe 100 MG/5 ML ONE (09:31)
[2021-12-15] MEDS: Norepinephrine 8 MG/250 ML IV.SOLN IVC SCH (10:07)
[2021-12-15 11:54] LABS: Alanine Aminotransferase < 3 Units/L (7-52); Albumin 3.6 g/dL (3.5-5.7); Albumin/Globulin Ratio 0.9 (1.1-2.2); Alkaline Phosphatase 182 Units/L (34-104); Aspartate Amino Transferase 95 Units/L (13-39); BUN/Creatinine Ratio 14 (6-26); Bilirubin,Direct 3.9 mg/dL (0.0-0.2); Bilirubin,Indirect 2.3 mg/dL (0.0-1.0); Bilirubin,Total 6.2 mg/dL (0.3-1.0); Blood Urea Nitrogen 40 mg/dL (6-20); Carbon Dioxide 26 mEq/L (23-29); Chloride 95 mEq/L (98-107); Globulin 3.8 g/dL (2.4-3.5); Glucose 105 mg/dL (70-105); Magnesium 2.3 mg/dL (1.6-2.6); Osmolality,Calculated 286 (280-300); Phosphorous 2.6 mg/dL (2.7-4.5); Potassium 3.7 mEq/L (3.5-5.1); Sodium 133 mEq/L (136-145); Total Protein 7.4 g/dL (6.4-8.9); eGFR For African Americans 31 (> 60); eGFR For Non-African Americans 25 (> 60)
[2021-12-15] MEDS: Metoclopramide 10 MG/10 ML UD.LIQ GTUBE SCH ×3 (12:30→23:25)
[2021-12-15] MEDS ORDERED: levoFLOXacin 750 MG/150 ML 750 MG/150 ML BAG IVPB ONE (13:00)
[2021-12-15 13:59] LABS: INR 1.2; Prothrombin Time 13.9 Seconds (9.4-12.1)
[2021-12-15 14:02] LABS: Activated Partial Thrombo Time 37.1 Seconds (26.0-36.0)
[2021-12-15] MEDS: ceFAZolin 1,000 MG in Water for inj. (sterile) 10 ML IVP SCH (17:44)
[2021-12-15] MEDS: MetroNIDAZOLE 500 MG/100 ML 500 MG/100 ML BAG IVPB SCH ×2 (17:45→23:24)
[2021-12-15] MEDS: Phenylephrine 20 MG in 0.9 % Sodium Chloride 250 ML IVC SCH (19:50)
[2021-12-16] MEDS: Artificial Tears SOLN 15 ML BOTTLE BOTH EYES SCH ×6 (03:36→23:58)
[2021-12-16] MEDS: Dexmedetomidine HCl 400 MCG/100 ML MLS IVC SCH ×5 (03:36→19:50)
[2021-12-16] MEDS: Metoclopramide 10 MG/10 ML UD.LIQ GTUBE SCH (05:17)
[2021-12-16] MEDS: *HR* Heparin 5,000 UNIT/ML VIAL SQ SCH ×2 (05:18→19:26)
[2021-12-16] MEDS: Pantoprazole 40 MG VIAL IVP SCH ×2 (05:18→17:52)
[2021-12-16 06:07] LABS: VBG Ionized Calcium 1.12 mmol/L (1.15-1.35)
[2021-12-16 06:07] LABS: Basophils # 0.1 K/mcL (0.0-0.2); Basophils % 0.4 %; Eosinophils # 0.1 K/mcL (0.0-0.6); Hematocrit 28.1 % (37.5-50.1); Hemoglobin 9.1 g/dL (12.9-16.9); Immature Granulocytes % 0.5 % (0-4); Lymphocytes # 0.8 K/mcL (0.6-4.6); Lymphocytes % 6.3 %; Mean Corpuscular HGB Conc 32.4 g/dL (31.6-35.5); Mean Corpuscular Hemoglobin 31.5 pg (28.0-33.3); Mean Corpuscular Volume 97.2 fL (83.0-100.0); Mean Platelet Volume 12.7 fL (9.4-12.4); Monocytes # 0.9 K/mcL (0.0-1.3); Monocytes % 6.7 %; Neutrophils # 11.1 K/mcL (1.6-8.9); Platelet Count 246 K/mcL (140-400); Red Blood Count 2.89 M/mcL (4.19-5.50); Red Cell Distribution Width 20.6 % (11.5-14.5); Segmented Neutrophils % 85.1 %
[2021-12-16 06:28] LABS: Albumin 3.6 g/dL (3.5-5.7); Albumin/Globulin Ratio 0.9 (1.1-2.2); Bilirubin,Total 5.6 mg/dL (0.3-1.0); Calcium 8.9 mg/dL (8.6-10.3); Globulin 3.8 g/dL (2.4-3.5); Magnesium 2.3 mg/dL (1.6-2.6); Phosphorous 3.5 mg/dL (2.7-4.5); Potassium 3.6 mEq/L (3.5-5.1); Total Protein 7.4 g/dL (6.4-8.9)
[2021-12-16 07:17] LABS: Anisocytosis 2+ (Not Present); Hypochromasia Present (Not Present); Platelet Estimate Normal (Normal)
[2021-12-16 07:19] LABS: Stomatocytes 1+ (Not Present)
[2021-12-16] MEDS ORDERED: *HR* Heparin 10,000 UNIT/10 ML VIAL IV PRN (08:07)
[2021-12-16] MEDS ORDERED: 0.9 % Sodium Chloride 250 ML IVC PRN (08:07)
[2021-12-16] MEDS: Ondansetron 4 MG/2 ML VIAL IVP PRN (08:08)
[2021-12-16] MEDS: Chlorhexidine Rinse 15 ML MOUTHWASH MM SCH ×2 (08:15→19:51)
[2021-12-16] MEDS: Magic Mouthwash 10 ML UD Cup PO SCH ×3 (08:15→17:57)
[2021-12-16] MEDS: Lactobacillus 1 EACH CAP.SPRINK PO SCH ×2 (08:15→19:51)
[2021-12-16] MEDS: Ferrous Sulfate Oral Soln 300 MG/5 ML UDC GTUBE SCH ×2 (08:15→19:51)
[2021-12-16] MEDS: Aspirin 81 MG TAB.CHEW PO SCH (08:15)
[2021-12-16] MEDS: MetroNIDAZOLE 500 MG/100 ML 500 MG/100 ML BAG IVPB SCH (08:15)
[2021-12-16] MEDS: Nicotine 21 MG PATCH.TD24 TD SCH (09:00)
[2021-12-16] MEDS: Docusate Oral Soln 100 MG/10 ML UDC PO SCH ×2 (09:00→19:51)
[2021-12-16] MEDS ORDERED: Potassium Chloride Elixir 20 MEQ/15 ML UDC GTUBE PRN (09:05)
[2021-12-16] MEDS ORDERED: levoFLOXacin 500 MG TABLET GTUBE SCH (15:00)
[2021-12-16] MEDS ORDERED: levoFLOXacin 500 MG/100 ML 500 MG/100 ML BAG IVPB SCH (16:00)
[2021-12-16] MEDS: ceFAZolin 1,000 MG in Water for inj. (sterile) 10 ML IVP SCH (17:53)
[2021-12-16] MEDS: metroNIDAZOLE 500 MG TABLET GTUBE SCH ×2 (17:56→19:57)
[2021-12-16] MEDS: *HR* FentaNYL (PF) 100 MCG/2 ML VIAL IVP PRN (17:59)
[2021-12-16] MEDS: Phenylephrine 20 MG in 0.9 % Sodium Chloride 250 ML IVC SCH (19:27)
[2021-12-17] MEDS: Dexmedetomidine HCl 400 MCG/100 ML MLS IVC SCH ×5 (01:15→22:14)
[2021-12-17] MEDS: Artificial Tears SOLN 15 ML BOTTLE BOTH EYES SCH ×6 (03:09→23:18)
[2021-12-17 03:28] LABS: Basophils # 0.1 K/mcL (0.0-0.2); Basophils % 0.5 %; Eosinophils # 0.1 K/mcL (0.0-0.6); Hemoglobin 9.3 g/dL (12.9-16.9); Immature Granulocytes % 0.5 % (0-4); Lymphocytes # 0.8 K/mcL (0.6-4.6); Lymphocytes % 6.5 %; Mean Corpuscular Hemoglobin 30.2 pg (28.0-33.3); Mean Corpuscular Volume 97.4 fL (83.0-100.0); Mean Platelet Volume 12.1 fL (9.4-12.4); Monocytes # 0.8 K/mcL (0.0-1.3); Monocytes % 6.4 %; Platelet Count 275 K/mcL (140-400); Red Blood Count 3.08 M/mcL (4.19-5.50); Red Cell Distribution Width 20.2 % (11.5-14.5); Segmented Neutrophils % 85.1 %; White Blood Count 12.9 K/mcL (4.3-11.1)
[2021-12-17 03:30] LABS: VBG Ionized Calcium 1.01 mmol/L (1.15-1.35)
[2021-12-17 03:57] LABS: Calcium 8.9 mg/dL (8.6-10.3); Phosphorous 2.3 mg/dL (2.7-4.5); Potassium 3.5 mEq/L (3.5-5.1)
[2021-12-17] MEDS ORDERED: Potassium Chloride Elixir 20 MEQ/15 ML UDC GTUBE ONE (04:23)
[2021-12-17] MEDS: Pantoprazole 40 MG VIAL IVP SCH ×3 (04:34→18:02)
[2021-12-17] MEDS: *HR* Heparin 5,000 UNIT/ML VIAL SQ SCH ×3 (04:35→18:02)
[2021-12-17] MEDS ORDERED: Desitin (Zinc Oxide) Max 57 GM TUBE TP PRN (06:11)
[2021-12-17] MEDS: Docusate Oral Soln 100 MG/10 ML UDC PO SCH ×3 (08:28→19:40)
[2021-12-17] MEDS: Chlorhexidine Rinse 15 ML MOUTHWASH MM SCH ×3 (08:28→19:42)
[2021-12-17] MEDS: Ferrous Sulfate Oral Soln 300 MG/5 ML UDC GTUBE SCH ×3 (08:28→19:41)
[2021-12-17] MEDS: Nicotine 21 MG PATCH.TD24 TD SCH ×2 (08:29→14:57)
[2021-12-17] MEDS: metroNIDAZOLE 500 MG TABLET GTUBE SCH ×4 (08:29→19:41)
[2021-12-17] MEDS: Lactobacillus 1 EACH CAP.SPRINK PO SCH ×3 (08:29→19:41)
[2021-12-17] MEDS: Aspirin 81 MG TAB.CHEW PO SCH ×2 (08:29→14:46)
[2021-12-17] MEDS: Magic Mouthwash 10 ML UD Cup PO SCH ×3 (08:31→17:19)
[2021-12-17] MEDS: Scopolamine Patch 1.5 MG PATCH.TD72 TD SCH (11:43)
[2021-12-17] MEDS: ceFAZolin 1,000 MG in Water for inj. (sterile) 10 ML IVP SCH (18:02)
[2021-12-17] MEDS: Phenylephrine 20 MG in 0.9 % Sodium Chloride 250 ML IVC SCH (18:30)
[2021-12-17] MEDS: Ondansetron 4 MG/2 ML VIAL IVP PRN (21:44)
[2021-12-17] MEDS: Metoclopramide 10 MG/10 ML UD.LIQ GTUBE SCH (23:18)
[2021-12-18] MEDS: Dexmedetomidine HCl 400 MCG/100 ML MLS IVC SCH ×4 (03:21→19:00)
[2021-12-18] MEDS: Artificial Tears SOLN 15 ML BOTTLE BOTH EYES SCH ×6 (03:41→23:28)
[2021-12-18 03:50] LABS: Basophils # 0.1 K/mcL (0.0-0.2); Basophils % 0.5 %; Eosinophils # 0.2 K/mcL (0.0-0.6); Eosinophils % 1.3 %; Hematocrit 31.1 % (37.5-50.1); Hemoglobin 9.6 g/dL (12.9-16.9); Immature Granulocytes % 0.5 % (0-4); Lymphocytes # 1.4 K/mcL (0.6-4.6); Lymphocytes % 10.5 %; Mean Corpuscular HGB Conc 30.9 g/dL (31.6-35.5); Mean Corpuscular Hemoglobin 29.9 pg (28.0-33.3); Mean Corpuscular Volume 96.9 fL (83.0-100.0); Mean Platelet Volume 12.1 fL (9.4-12.4); Monocytes % 7.4 %; Neutrophils # 10.8 K/mcL (1.6-8.9); Platelet Count 347 K/mcL (140-400); Red Blood Count 3.21 M/mcL (4.19-5.50); Segmented Neutrophils % 79.8 %; White Blood Count 13.5 K/mcL (4.3-11.1)
[2021-12-18 04:05] LABS: Phosphorous 2.8 mg/dL (2.7-4.5)
[2021-12-18 04:08] LABS: Albumin 3.6 g/dL (3.5-5.7); Albumin/Globulin Ratio 0.8 (1.1-2.2); Bilirubin,Total 4.5 mg/dL (0.3-1.0); Calcium 9.2 mg/dL (8.6-10.3); Globulin 4.3 g/dL (2.4-3.5); Potassium 4.1 mEq/L (3.5-5.1); Total Protein 7.9 g/dL (6.4-8.9)
[2021-12-18 04:10] LABS: VBG Ionized Calcium 1.12 mmol/L (1.15-1.35)
[2021-12-18] MEDS: *HR* Heparin 5,000 UNIT/ML VIAL SQ SCH ×3 (05:12→18:24)
[2021-12-18] MEDS: Pantoprazole 40 MG VIAL IVP SCH (05:13)
[2021-12-18] MEDS: Metoclopramide 10 MG/10 ML UD.LIQ GTUBE SCH ×5 (05:13→23:28)
[2021-12-18] MEDS: Magic Mouthwash 10 ML UD Cup PO SCH ×2 (08:04→16:33)
[2021-12-18] MEDS: Aspirin 81 MG TAB.CHEW PO SCH (08:25)
[2021-12-18] MEDS: Chlorhexidine Rinse 15 ML MOUTHWASH MM SCH ×2 (08:25→20:13)
[2021-12-18] MEDS: Ferrous Sulfate Oral Soln 300 MG/5 ML UDC GTUBE SCH ×2 (08:25→20:24)
[2021-12-18] MEDS: Lactobacillus 1 EACH CAP.SPRINK PO SCH ×2 (08:26→20:23)
[2021-12-18] MEDS: metroNIDAZOLE 500 MG TABLET GTUBE SCH ×4 (08:26→20:23)
[2021-12-18] MEDS: Nicotine 21 MG PATCH.TD24 TD SCH (08:27)
[2021-12-18] MEDS: Docusate Oral Soln 100 MG/10 ML UDC PO SCH ×2 (08:28→20:13)
[2021-12-18] MEDS ORDERED: Naloxone 0.4 MG/ML INJ IVP PRN (14:42)
[2021-12-18] MEDS ORDERED: *HR* Dextrose 50 % in Water (Syg) 50 ML SYRINGE IVP PRN (14:42)
[2021-12-18] MEDS ORDERED: Desitin (Zinc Oxide) Max 57 GM TUBE TP PRN (14:42)
[2021-12-18] MEDS ORDERED: Ipratropium/Albuterol Neb 3 ML IH PRN (14:42)
[2021-12-18] MEDS ORDERED: Potassium Chloride Elixir 20 MEQ/15 ML UDC GTUBE PRN (14:42)
[2021-12-18] MEDS ORDERED: *HR* Heparin 10,000 UNIT/10 ML VIAL IV PRN ×2 (14:42)
[2021-12-18] MEDS ORDERED: Dextrose 4 GM Chewable Tablets PO PRN ×2 (14:42)
[2021-12-18] MEDS ORDERED: *HR* OxyCODONE Oral Soln 5 MG/5 ML UD.LIQ GTUBE PRN (14:42)
[2021-12-18] MEDS ORDERED: Artificial Tears SOLN 15 ML BOTTLE BOTH EYES PRN (14:42)
[2021-12-18] MEDS: levoFLOXacin 500 MG TABLET GTUBE SCH (16:24)
[2021-12-18] MEDS: ceFAZolin 1,000 MG in Water for inj. (sterile) 10 ML IVP SCH (18:27)
[2021-12-19] MEDS: Artificial Tears SOLN 15 ML BOTTLE BOTH EYES SCH ×5 (02:06→20:28)
[2021-12-19] MEDS: Metoclopramide 10 MG/10 ML UD.LIQ GTUBE SCH ×3 (04:29→16:40)
[2021-12-19] MEDS: Ondansetron 4 MG/2 ML VIAL IVP PRN (04:32)
[2021-12-19 04:38] LABS: Basophils # 0.1 K/mcL (0.0-0.2); Basophils % 0.8 %; Eosinophils # 0.2 K/mcL (0.0-0.6); Eosinophils % 1.5 %; Hematocrit 28.8 % (37.5-50.1); Immature Granulocytes % 0.5 % (0-4); Lymphocytes # 1.5 K/mcL (0.6-4.6); Lymphocytes % 11.4 %; Mean Corpuscular HGB Conc 31.3 g/dL (31.6-35.5); Mean Corpuscular Hemoglobin 30.2 pg (28.0-33.3); Mean Corpuscular Volume 96.6 fL (83.0-100.0); Mean Platelet Volume 12.3 fL (9.4-12.4); Monocytes # 0.9 K/mcL (0.0-1.3); Monocytes % 7.4 %; Platelet Count 379 K/mcL (140-400); Red Blood Count 2.98 M/mcL (4.19-5.50); Red Cell Distribution Width 19.3 % (11.5-14.5); Segmented Neutrophils % 78.4 %; White Blood Count 12.8 K/mcL (4.3-11.1)
[2021-12-19] MEDS: Dexmedetomidine HCl 400 MCG/100 ML MLS IVC SCH ×5 (04:54→20:46)
[2021-12-19 04:56] LABS: Albumin 3.6 g/dL (3.5-5.7); Albumin/Globulin Ratio 0.9 (1.1-2.2); Bilirubin,Total 4.2 mg/dL (0.3-1.0); Calcium 9.5 mg/dL (8.6-10.3); Globulin 4.1 g/dL (2.4-3.5); Potassium 4.7 mEq/L (3.5-5.1); Total Protein 7.7 g/dL (6.4-8.9)
[2021-12-19] MEDS: *HR* Heparin 5,000 UNIT/ML VIAL SQ SCH ×2 (04:58→16:40)
[2021-12-19] MEDS: Ipratropium/Albuterol Neb 3 ML IH SCH ×5 (07:55→23:58)
[2021-12-19] MEDS ORDERED: *HR* Heparin 10,000 UNIT/10 ML VIAL IV PRN (08:04)
[2021-12-19] MEDS ORDERED: 0.9 % Sodium Chloride 250 ML IVC PRN (08:04)
[2021-12-19] MEDS: Nicotine 21 MG PATCH.TD24 TD SCH (09:29)
[2021-12-19] MEDS: Lactobacillus 1 EACH CAP.SPRINK PO SCH ×2 (09:32→20:27)
[2021-12-19] MEDS: metroNIDAZOLE 500 MG TABLET GTUBE SCH ×3 (09:32→20:27)
[2021-12-19] MEDS: Aspirin 81 MG TAB.CHEW PO SCH (09:32)
[2021-12-19] MEDS: Ferrous Sulfate Oral Soln 300 MG/5 ML UDC GTUBE SCH ×2 (09:33→20:27)
[2021-12-19] MEDS: Magic Mouthwash 10 ML UD Cup PO SCH ×3 (09:33→16:39)
[2021-12-19] MEDS: Docusate Oral Soln 100 MG/10 ML UDC PO SCH (09:33)
[2021-12-19] MEDS: Chlorhexidine Rinse 15 ML MOUTHWASH MM SCH ×2 (09:34→20:27)
[2021-12-19] MEDS ORDERED: E-Z-HD (BARIUM SULF) SUSPENSION PO ONE (15:34)
[2021-12-19] MEDS ORDERED: E-Z-PAQUE (BARIUM SULF) SUSP 1 BOTTLE PO ONE (15:34)
[2021-12-19] MEDS: ceFAZolin 1,000 MG in Water for inj. (sterile) 10 ML IVP SCH (16:39)
[2021-12-20] MEDS: Metoclopramide 10 MG/10 ML UD.LIQ GTUBE SCH ×3 (00:38→12:11)
[2021-12-20] MEDS: Artificial Tears SOLN 15 ML BOTTLE BOTH EYES SCH ×6 (00:38→20:51)
[2021-12-20] MEDS ORDERED: Melatonin 3 MG TABLET PO PRN (02:03)
[2021-12-20] MEDS: Dexmedetomidine HCl 400 MCG/100 ML MLS IVC SCH ×2 (02:16→08:06)
[2021-12-20] MEDS: Ipratropium/Albuterol Neb 3 ML IH SCH ×6 (04:08→23:22)
[2021-12-20] MEDS: *HR* Heparin 5,000 UNIT/ML VIAL SQ SCH ×3 (05:52→20:56)
[2021-12-20 06:36] LABS: Basophils # 0.1 K/mcL (0.0-0.2); Basophils % 0.4 %; Eosinophils # 0.1 K/mcL (0.0-0.6); Eosinophils % 1.2 %; Hematocrit 28.9 % (37.5-50.1); Hemoglobin 9.4 g/dL (12.9-16.9); Immature Granulocytes % 0.4 % (0-4); Lymphocytes # 1.5 K/mcL (0.6-4.6); Lymphocytes % 12.4 %; Mean Corpuscular HGB Conc 32.5 g/dL (31.6-35.5); Mean Corpuscular Hemoglobin 31.2 pg (28.0-33.3); Monocytes % 8.2 %; Neutrophils # 9.1 K/mcL (1.6-8.9); Platelet Count 418 K/mcL (140-400); Red Blood Count 3.01 M/mcL (4.19-5.50); Segmented Neutrophils % 77.4 %; White Blood Count 11.8 K/mcL (4.3-11.1)
[2021-12-20 07:02] LABS: Albumin 3.8 g/dL (3.5-5.7); Albumin/Globulin Ratio 0.9 (1.1-2.2); Calcium 9.3 mg/dL (8.6-10.3); Globulin 4.3 g/dL (2.4-3.5); Potassium 3.6 mEq/L (3.5-5.1); Total Protein 8.1 g/dL (6.4-8.9)
[2021-12-20] MEDS: Lactobacillus 1 EACH CAP.SPRINK PO SCH ×2 (09:14→20:55)
[2021-12-20] MEDS: Chlorhexidine Rinse 15 ML MOUTHWASH MM SCH ×2 (09:14→20:50)
[2021-12-20] MEDS: Aspirin 81 MG TAB.CHEW PO SCH (09:14)
[2021-12-20] MEDS: Ferrous Sulfate Oral Soln 300 MG/5 ML UDC GTUBE SCH ×2 (09:14→20:52)
[2021-12-20] MEDS: Nicotine 21 MG PATCH.TD24 TD SCH ×2 (09:14→09:21)
[2021-12-20] MEDS: metroNIDAZOLE 500 MG TABLET GTUBE SCH ×3 (09:15→20:54)
[2021-12-20] MEDS: Docusate Oral Soln 100 MG/10 ML UDC PO SCH (09:16)
[2021-12-20] MEDS: Magic Mouthwash 10 ML UD Cup PO SCH ×3 (09:21→16:39)
[2021-12-20] MEDS: Scopolamine Patch 1.5 MG PATCH.TD72 TD SCH (12:12)
[2021-12-20] MEDS: levoFLOXacin 500 MG TABLET GTUBE SCH (17:44)
[2021-12-20] MEDS: ceFAZolin 1,000 MG in Water for inj. (sterile) 10 ML IVP SCH (21:53)
[2021-12-21] MEDS: Artificial Tears SOLN 15 ML BOTTLE BOTH EYES SCH ×3 (00:01→08:21)
[2021-12-21] MEDS: Ipratropium/Albuterol Neb 3 ML IH SCH ×6 (04:23→23:42)
[2021-12-21] MEDS: *HR* Heparin 5,000 UNIT/ML VIAL SQ SCH (07:09)
[2021-12-21 07:38] LABS: Bilirubin,Total 3.6 mg/dL (0.3-1.0); Calcium 9.3 mg/dL (8.6-10.3); Potassium 3.8 mEq/L (3.5-5.1); Total Protein 7.9 g/dL (6.4-8.9)
[2021-12-21 07:39] LABS: Hematocrit 28.1 % (37.5-50.1); Hemoglobin 8.8 g/dL (12.9-16.9); Mean Corpuscular HGB Conc 31.3 g/dL (31.6-35.5); Mean Corpuscular Hemoglobin 29.7 pg (28.0-33.3); Mean Corpuscular Volume 94.9 fL (83.0-100.0); Mean Platelet Volume 11.8 fL (9.4-12.4); Platelet Count 445 K/mcL (140-400); Red Blood Count 2.96 M/mcL (4.19-5.50); Red Cell Distribution Width 18.6 % (11.5-14.5); White Blood Count 13.1 K/mcL (4.3-11.1)
[2021-12-21 07:40] LABS: Albumin 3.7 g/dL (3.5-5.7); Albumin/Globulin Ratio 0.9 (1.1-2.2); Globulin 4.2 g/dL (2.4-3.5)
[2021-12-21] MEDS: Docusate Oral Soln 100 MG/10 ML UDC PO SCH ×3 (08:21→19:55)
[2021-12-21] MEDS: Nicotine 21 MG PATCH.TD24 TD SCH (08:22)
[2021-12-21] MEDS: Chlorhexidine Rinse 15 ML MOUTHWASH MM SCH ×2 (08:39→19:44)
[2021-12-21] MEDS: Aspirin 81 MG TAB.CHEW PO SCH (08:40)
[2021-12-21] MEDS: Lactobacillus 1 EACH CAP.SPRINK PO SCH ×2 (08:40→19:45)
[2021-12-21] MEDS: Magic Mouthwash 10 ML UD Cup PO SCH ×3 (08:41→18:23)
[2021-12-21] MEDS ORDERED: Potassium Chloride Elixir 20 MEQ/15 ML UDC PO PRN (08:45)
[2021-12-21] MEDS ORDERED: Acetaminophen 325 MG TABLET PO PRN (08:45)
[2021-12-21] MEDS: metroNIDAZOLE 500 MG TABLET PO SCH ×3 (09:02→19:45)
[2021-12-21] MEDS ORDERED: 0.9 % Sodium Chloride 1,000 ML ONE (14:15)
[2021-12-21] MEDS ORDERED: Norepinephrine 4 MG/254 ML IV.SOLN IVC ONE (14:23)
[2021-12-21] MEDS ORDERED: Perflutren Lipid Microsphere 1.3 ML in 0.9 % Sodium Chloride 8.7 ML IVP PRN (14:29)
[2021-12-21] MEDS ORDERED: Albumin Human 5% 12.5 GM/250 ML IV.SOLN IVPB ONE (14:33)
[2021-12-21] MEDS ORDERED: Albumin Human 5% 12.5 GM/250 ML IV.SOLN ONE ×2 (14:35→14:57)
[2021-12-21] MEDS ORDERED: *HR* Heparin 5,000 UNIT/ML VIAL IVP ONE (14:49)
[2021-12-21] MEDS ORDERED: *HR* Heparin 5,000 UNIT/ML VIAL IVP PRN ×2 (14:49)
[2021-12-21 14:54] LABS: Basophils # 0.1 K/mcL (0.0-0.2); Basophils % 0.3 %; Eosinophils # 0.1 K/mcL (0.0-0.6); Eosinophils % 0.3 %; Immature Granulocytes % 0.6 % (0-4); Lymphocytes % 8.7 %; Mean Corpuscular HGB Conc 31.3 g/dL (31.6-35.5); Mean Corpuscular Hemoglobin 30.4 pg (28.0-33.3); Mean Platelet Volume 11.4 fL (9.4-12.4); Monocytes # 1.1 K/mcL (0.0-1.3); Monocytes % 5.3 %; Platelet Count 537 K/mcL (140-400); Red Blood Count 2.37 M/mcL (4.19-5.50); Red Cell Distribution Width 18.5 % (11.5-14.5); Segmented Neutrophils % 84.8 %
[2021-12-21] MEDS ORDERED: FentaNYL (PF) 1,000 MCG/100 ML IV.SOLN ONE (14:57)
[2021-12-21] MEDS ORDERED: *HR* Midazolam HCl 5 MG/5 ML VIAL IVP ONE ×2 (14:59→15:00)
[2021-12-21] MEDS ORDERED: Isovue-370 500 ML BOTTLE IVP ONE (14:59)
[2021-12-21 15:00] LABS: Heparin anti-factor XA UFH < 0.04 IU/mL (0.30-0.70); INR 1.5; Lymphocytes # 1.8 K/mcL (0.6-4.6); Prothrombin Time 16.6 Seconds (9.4-12.1); White Blood Count 21.2 K/mcL (4.3-11.1)
[2021-12-21] MEDS: FentaNYL (PF) 1,000 MCG/100 ML IV.SOLN IVC SCH (15:00)
[2021-12-21] MEDS ORDERED: Heparin 25,000UNIT/250ML 1/2NS 25,000 UNIT/250 ML IV.SOLN IVC SCH (15:00)
[2021-12-21 15:01] LABS: Hemoglobin 7.2 g/dL (12.9-16.9)
[2021-12-21 15:02] LABS: ABG Base Excess -4 mEq/L (-2 to 3); ABG HCO3 19 mEq/L (21-27); ABG Oxygen Saturation 100 % (95-98); ABG PCO2 24 mmHg (35-45); ABG PH 7.49 pH Units (7.32-7.45); ABG PO2 201 mmHg (85-104); ABG TCO2 19 mEq/L (20-26)
[2021-12-21 15:03] LABS: Activated Partial Thrombo Time 35.2 Seconds (26.0-36.0)
[2021-12-21] MEDS: Midazolam HCl 50 MG/50 ML IV.SOLN IVC SCH ×2 (15:15→18:25)
[2021-12-21 15:18] LABS: Albumin 3.6 g/dL (3.5-5.7); Albumin/Globulin Ratio 0.8 (1.1-2.2); Bilirubin,Total 3.7 mg/dL (0.3-1.0); Calcium 9.3 mg/dL (8.6-10.3); Globulin 4.6 g/dL (2.4-3.5); Potassium 4.3 mEq/L (3.5-5.1); Total Protein 8.2 g/dL (6.4-8.9); Troponin I 0.06 ng/mL (< 0.04)
[2021-12-21] MEDS ORDERED: Lidocaine -MPF 1% 5 ML AMPUL INFILT ONE (15:28)
[2021-12-21] MEDS ORDERED: Protamine Sulfate 50 MG/5 ML VIAL IVP ONE (16:28)
[2021-12-21] MEDS ORDERED: [UNRECOGNIZED DRUG - OTHER] IVPB ONE (17:26)
[2021-12-21] MEDS ORDERED: HUM PROTHROMBIN CPLX IVPB ONE ×2 (17:26→17:45)
[2021-12-21] MEDS ORDERED: WATER FOR INJ IVPB ONE ×2 (17:26→17:45)
[2021-12-21 17:45] VITALS: PULSE 80
[2021-12-21] MEDS ORDERED: [UNRECOGNIZED DRUG - OTHER] IVPB ONE (17:45)
[2021-12-21] MEDS: ceFAZolin 1,000 MG in Water for inj. (sterile) 10 ML IVP SCH (18:31)
[2021-12-21] MEDS: Norepinephrine 4 MG/254 ML IV.SOLN IVC SCH (19:42)
[2021-12-21] MEDS ORDERED: 0.9 % Sodium Chloride 500 ML ONE (20:27)
[2021-12-21] MEDS: PrismaSATE BGK 4/2.5 5,000 ML CRRT SCH ×2 (21:30)
[2021-12-21 21:53] LABS: Basophils % 0.2 %; Eosinophils % 0.1 %; Hematocrit 22.7 % (37.5-50.1); Hemoglobin 7.4 g/dL (12.9-16.9); Immature Granulocytes % 0.9 % (0-4); Lymphocytes # 1.2 K/mcL (0.6-4.6); Lymphocytes % 6.9 %; Mean Corpuscular HGB Conc 32.6 g/dL (31.6-35.5); Mean Platelet Volume 10.8 fL (9.4-12.4); Monocytes % 5.8 %; Neutrophils # 14.9 K/mcL (1.6-8.9); Platelet Count 368 K/mcL (140-400); Red Blood Count 2.39 M/mcL (4.19-5.50); Red Cell Distribution Width 17.4 % (11.5-14.5); Segmented Neutrophils % 86.1 %; White Blood Count 17.3 K/mcL (4.3-11.1)
[2021-12-21 22:03] LABS: INR 1.3; Prothrombin Time 14.1 Seconds (9.4-12.1)
[2021-12-21 22:05] LABS: Activated Partial Thrombo Time 33.6 Seconds (26.0-36.0)
[2021-12-22] MEDS: Dexmedetomidine HCl 400 MCG/100 ML MLS IVC SCH ×2 (00:09→08:57)
[2021-12-22] MEDS: Midazolam HCl 50 MG/50 ML IV.SOLN IVC SCH ×3 (01:54→12:45)
[2021-12-22 02:31] LABS: Basophils % 0.3 %; Eosinophils % 0.1 %; Hematocrit 21.6 % (37.5-50.1); Hemoglobin 6.9 g/dL (12.9-16.9); Immature Granulocytes % 0.8 % (0-4); Lymphocytes # 1.2 K/mcL (0.6-4.6); Lymphocytes % 8.5 %; Mean Corpuscular HGB Conc 31.9 g/dL (31.6-35.5); Mean Corpuscular Hemoglobin 30.4 pg (28.0-33.3); Mean Corpuscular Volume 95.2 fL (83.0-100.0); Monocytes # 0.8 K/mcL (0.0-1.3); Monocytes % 5.7 %; Neutrophils # 12.1 K/mcL (1.6-8.9); Platelet Count 342 K/mcL (140-400); Red Blood Count 2.27 M/mcL (4.19-5.50); Red Cell Distribution Width 17.5 % (11.5-14.5); Segmented Neutrophils % 84.6 %; White Blood Count 14.3 K/mcL (4.3-11.1)
[2021-12-22 02:42] LABS: INR 1.3
[2021-12-22 02:44] LABS: Activated Partial Thrombo Time 33.8 Seconds (26.0-36.0)
[2021-12-22 02:48] LABS: VBG Ionized Calcium 1.07 mmol/L (1.15-1.35)
[2021-12-22 02:51] LABS: Albumin 3.5 g/dL (3.5-5.7); Albumin/Globulin Ratio 0.9 (1.1-2.2); Bilirubin,Direct 1.7 mg/dL (0.0-0.2); Bilirubin,Indirect 1.4 mg/dL (0.0-1.0); Bilirubin,Total 3.1 mg/dL (0.3-1.0); Calcium 8.6 mg/dL (8.6-10.3); Globulin 3.9 g/dL (2.4-3.5); Magnesium 1.7 mg/dL (1.6-2.6); Phosphorous 7.1 mg/dL (2.7-4.5); Potassium 4.2 mEq/L (3.5-5.1); Total Protein 7.4 g/dL (6.4-8.9)
[2021-12-22] MEDS ORDERED: 0.9 % Sodium Chloride 250 ML IVC SCH (03:00)
[2021-12-22] MEDS ORDERED: 0.9 % Sodium Chloride 1,000 ML ONE (03:05)
[2021-12-22] MEDS: Ipratropium/Albuterol Neb 3 ML IH SCH ×6 (03:17→23:16)
[2021-12-22] MEDS ORDERED: Calcium Gluconate 1gm/50mL 1 GM/50 ML BAG IVPB PRN (03:45)
[2021-12-22] MEDS: FentaNYL (PF) 1,000 MCG/100 ML IV.SOLN IVC SCH (03:51)
[2021-12-22 06:06] LABS: ABG Base Excess -2 mEq/L (-2 to 3); ABG HCO3 23 mEq/L (21-27); ABG Oxygen Saturation 100 % (95-98); ABG PCO2 35 mmHg (35-45); ABG PH 7.42 pH Units (7.32-7.45); ABG PO2 290 mmHg (85-104); ABG TCO2 24 mEq/L (20-26); Blood Gas Modality AF; Blood Gas VT 420 cc
[2021-12-22] MEDS: Docusate Oral Soln 100 MG/10 ML UDC PO SCH ×2 (08:00→20:34)
[2021-12-22] MEDS: Norepinephrine 4 MG/254 ML IV.SOLN IVC SCH (08:42)
[2021-12-22] MEDS: metroNIDAZOLE 500 MG TABLET PO SCH ×3 (09:19→21:00)
[2021-12-22] MEDS: Aspirin 81 MG TAB.CHEW PO SCH (09:19)
[2021-12-22] MEDS: Lactobacillus 1 EACH CAP.SPRINK PO SCH ×2 (09:19→20:29)
[2021-12-22] MEDS: Chlorhexidine Rinse 15 ML MOUTHWASH MM SCH ×2 (09:32→20:29)
[2021-12-22 09:38] LABS: Basophils # 0.1 K/mcL (0.0-0.2); Basophils % 0.5 %; Eosinophils % 0.2 %; Hematocrit 27.4 % (37.5-50.1); Immature Granulocytes % 0.7 % (0-4); Lymphocytes # 1.2 K/mcL (0.6-4.6); Lymphocytes % 8.9 %; Mean Corpuscular HGB Conc 33.2 g/dL (31.6-35.5); Mean Corpuscular Hemoglobin 30.7 pg (28.0-33.3); Mean Corpuscular Volume 92.6 fL (83.0-100.0); Mean Platelet Volume 11.3 fL (9.4-12.4); Monocytes # 0.8 K/mcL (0.0-1.3); Monocytes % 6.4 %; Neutrophils # 10.9 K/mcL (1.6-8.9); Platelet Count 283 K/mcL (140-400); Red Blood Count 2.96 M/mcL (4.19-5.50); Red Cell Distribution Width 16.1 % (11.5-14.5); Segmented Neutrophils % 83.3 %; White Blood Count 13.1 K/mcL (4.3-11.1)
[2021-12-22 09:53] LABS: Hemoglobin 9.1 g/dL (12.9-16.9)
[2021-12-22] MEDS: Magic Mouthwash 10 ML UD Cup PO SCH ×3 (10:14→18:20)
[2021-12-22] MEDS: Nicotine 21 MG PATCH.TD24 TD SCH (10:15)
[2021-12-22] MEDS: levoFLOXacin 500 MG TABLET PO SCH (14:24)
[2021-12-22] MEDS ORDERED: *HR* Rocuronium Bromide 50 MG/5 ML VIAL ONE ×2 (14:25→15:41)
[2021-12-22] MEDS ORDERED: *HR* Midazolam HCl 5 MG/5 ML VIAL IVP ONE (14:28)
[2021-12-22] MEDS ORDERED: *HR* FentaNYL (PF) 250 MCG/5 ML VIAL ONE (14:28)
[2021-12-22] MEDS ORDERED: 0.9 % Sodium Chloride 1,000 ML PRIME ONE ×2 (14:32)
[2021-12-22] MEDS ORDERED: *HR* Alteplase (Cathflo) 2 MG VIAL IVP PRN (14:32)
[2021-12-22 14:42] LABS: Hematocrit 27.7 % (37.5-50.1); Hemoglobin 9.3 g/dL (12.9-16.9)
[2021-12-22] MEDS ORDERED: 0.9 % Sodium Chloride 1,000 ML PRIME SCH (14:45)
[2021-12-22 15:03] LABS: Calcium 8.8 mg/dL (8.6-10.3); Potassium 4.4 mEq/L (3.5-5.1)
[2021-12-22] MEDS ORDERED: NACL ONE (16:22)
[2021-12-22] MEDS ORDERED: DEXMEDETOMIDINE ONE (16:22)
[2021-12-22] MEDS ORDERED: Ondansetron 4 MG/2 ML VIAL ONE (16:52)
[2021-12-22] MEDS: ceFAZolin 1,000 MG in Water for inj. (sterile) 10 ML IVP SCH ×2 (20:34→21:14)
[2021-12-22 21:21] LABS: Hemoglobin 9.1 g/dL (12.9-16.9)
[2021-12-23] MEDS: Midazolam HCl 50 MG/50 ML IV.SOLN IVC SCH ×3 (00:29→18:12)
[2021-12-23] MEDS: FentaNYL (PF) 1,000 MCG/100 ML IV.SOLN IVC SCH ×4 (00:30→19:00)
[2021-12-23] MEDS: Dexmedetomidine HCl 400 MCG/100 ML MLS IVC SCH ×3 (01:13→18:30)
[2021-12-23] MEDS: PrismaSATE BGK 4/2.5 5,000 ML CRRT SCH ×9 (02:03→21:00)
[2021-12-23] MEDS: Ipratropium/Albuterol Neb 3 ML IH SCH ×6 (04:04→23:59)
[2021-12-23 04:08] LABS: Basophils % 0.1 %; Eosinophils % 0.1 %; Hematocrit 26.5 % (37.5-50.1); Hemoglobin 8.7 g/dL (12.9-16.9); Immature Granulocytes % 0.5 % (0-4); Lymphocytes # 0.6 K/mcL (0.6-4.6); Lymphocytes % 5.4 %; Mean Corpuscular HGB Conc 32.8 g/dL (31.6-35.5); Mean Corpuscular Hemoglobin 30.5 pg (28.0-33.3); Mean Platelet Volume 11.7 fL (9.4-12.4); Monocytes # 0.3 K/mcL (0.0-1.3); Monocytes % 2.6 %; Neutrophils # 10.5 K/mcL (1.6-8.9); Platelet Count 243 K/mcL (140-400); Red Blood Count 2.85 M/mcL (4.19-5.50); Red Cell Distribution Width 16.6 % (11.5-14.5); Segmented Neutrophils % 91.3 %; White Blood Count 11.5 K/mcL (4.3-11.1)
[2021-12-23 04:13] LABS: ABG Base Excess -1 mEq/L (-2 to 3); ABG HCO3 24 mEq/L (21-27); ABG Oxygen Saturation 100 % (95-98); ABG PCO2 39 mmHg (35-45); ABG PH 7.39 pH Units (7.32-7.45); ABG PO2 281 mmHg (85-104); ABG TCO2 25 mEq/L (20-26); Blood Gas Modality ASSIST CONTROL; Blood Gas VT 420 cc
[2021-12-23 04:17] LABS: INR 1.3; Prothrombin Time 14.3 Seconds (9.4-12.1)
[2021-12-23 04:19] LABS: VBG Ionized Calcium 1.14 mmol/L (1.15-1.35)
[2021-12-23 04:19] LABS: Activated Partial Thrombo Time 34.5 Seconds (26.0-36.0)
[2021-12-23 04:32] LABS: Alanine Aminotransferase < 3 Units/L (7-52); Albumin 3.4 g/dL (3.5-5.7); Albumin/Globulin Ratio 0.9 (1.1-2.2); Alkaline Phosphatase 95 Units/L (34-104); Aspartate Amino Transferase 46 Units/L (13-39); BUN/Creatinine Ratio 15 (6-26); Bilirubin,Direct 1.4 mg/dL (0.0-0.2); Bilirubin,Indirect 1.4 mg/dL (0.0-1.0); Bilirubin,Total 2.8 mg/dL (0.3-1.0); Blood Urea Nitrogen 43 mg/dL (6-20); Calcium 8.8 mg/dL (8.6-10.3); Carbon Dioxide 24 mEq/L (23-29); Chloride 99 mEq/L (98-107); Globulin 3.9 g/dL (2.4-3.5); Glucose 130 mg/dL (70-105); Magnesium 2.1 mg/dL (1.6-2.6); Osmolality,Calculated 291 (280-300); Phosphorous 6.2 mg/dL (2.7-4.5); Potassium 4.8 mEq/L (3.5-5.1); Sodium 134 mEq/L (136-145); Total Protein 7.3 g/dL (6.4-8.9); eGFR For African Americans 30 (> 60); eGFR For Non-African Americans 25 (> 60)
[2021-12-23] MEDS: Aspirin 81 MG TAB.CHEW PO SCH (07:51)
[2021-12-23] MEDS: Magic Mouthwash 10 ML UD Cup PO SCH ×3 (07:51→16:06)
[2021-12-23] MEDS: Lactobacillus 1 EACH CAP.SPRINK PO SCH ×2 (07:51→20:55)
[2021-12-23] MEDS: Nicotine 21 MG PATCH.TD24 TD SCH (07:51)
[2021-12-23] MEDS: metroNIDAZOLE 500 MG TABLET PO SCH ×3 (07:51→20:55)
[2021-12-23] MEDS: Docusate Oral Soln 100 MG/10 ML UDC PO SCH ×2 (07:51→20:55)
[2021-12-23] MEDS: Chlorhexidine Rinse 15 ML MOUTHWASH MM SCH ×2 (07:51→20:55)
[2021-12-23 08:55] LABS: Hematocrit 27.6 % (37.5-50.1); Hemoglobin 9.1 g/dL (12.9-16.9)
[2021-12-23] MEDS: Scopolamine Patch 1.5 MG PATCH.TD72 TD SCH (11:32)
[2021-12-23] MEDS: Norepinephrine 4 MG/254 ML IV.SOLN IVC SCH (12:31)
[2021-12-23] MEDS: *HR* Heparin 5,000 UNIT/ML VIAL IVP PRN (15:20)
[2021-12-23] MEDS: ceFAZolin 1,000 MG in Water for inj. (sterile) 10 ML IVP SCH (18:29)
[2021-12-24] MEDS: FentaNYL (PF) 1,000 MCG/100 ML IV.SOLN IVC SCH ×3 (00:20→17:58)
[2021-12-24] MEDS: PrismaSATE BGK 4/2.5 5,000 ML CRRT SCH ×9 (00:40→19:35)
[2021-12-24] MEDS: Dexmedetomidine HCl 400 MCG/100 ML MLS IVC SCH ×3 (02:53→23:55)
[2021-12-24] MEDS: Ipratropium/Albuterol Neb 3 ML IH SCH ×7 (03:54→23:59)
[2021-12-24 03:58] LABS: VBG Ionized Calcium 1.12 mmol/L (1.15-1.35)
[2021-12-24 03:59] LABS: Basophils % 0.1 %; Eosinophils # 0.1 K/mcL (0.0-0.6); Eosinophils % 0.9 %; Hematocrit 24.7 % (37.5-50.1); Hemoglobin 7.7 g/dL (12.9-16.9); Immature Granulocytes % 0.6 % (0-4); Lymphocytes # 0.9 K/mcL (0.6-4.6); Lymphocytes % 9.5 %; Mean Corpuscular HGB Conc 31.2 g/dL (31.6-35.5); Mean Corpuscular Hemoglobin 30.1 pg (28.0-33.3); Mean Corpuscular Volume 96.5 fL (83.0-100.0); Monocytes # 0.4 K/mcL (0.0-1.3); Monocytes % 4.2 %; Neutrophils # 7.7 K/mcL (1.6-8.9); Platelet Count 220 K/mcL (140-400); Red Blood Count 2.56 M/mcL (4.19-5.50); Red Cell Distribution Width 16.9 % (11.5-14.5); Segmented Neutrophils % 84.7 %; White Blood Count 9.1 K/mcL (4.3-11.1)
[2021-12-24 04:12] LABS: INR 1.4; Prothrombin Time 15.5 Seconds (9.4-12.1)
[2021-12-24 04:25] LABS: Alanine Aminotransferase < 3 Units/L (7-52); Albumin 3.1 g/dL (3.5-5.7); Albumin/Globulin Ratio 0.9 (1.1-2.2); Alkaline Phosphatase 82 Units/L (34-104); Aspartate Amino Transferase 41 Units/L (13-39); BUN/Creatinine Ratio 14 (6-26); Bilirubin,Direct 1.3 mg/dL (0.0-0.2); Bilirubin,Indirect 1.2 mg/dL (0.0-1.0); Bilirubin,Total 2.5 mg/dL (0.3-1.0); Blood Urea Nitrogen 20 mg/dL (6-20); Calcium 8.1 mg/dL (8.6-10.3); Carbon Dioxide 26 mEq/L (23-29); Chloride 102 mEq/L (98-107); Globulin 3.6 g/dL (2.4-3.5); Glucose 91 mg/dL (70-105); Magnesium 2.1 mg/dL (1.6-2.6); Osmolality,Calculated 280 (280-300); Phosphorous 2.6 mg/dL (2.7-4.5); Potassium 3.9 mEq/L (3.5-5.1); Sodium 134 mEq/L (136-145); Total Protein 6.7 g/dL (6.4-8.9); eGFR For African Americans > 60 (> 60); eGFR For Non-African Americans 58 (> 60)
[2021-12-24] MEDS: Midazolam HCl 50 MG/50 ML IV.SOLN IVC SCH (05:50)
[2021-12-24] MEDS: Aspirin 81 MG TAB.CHEW PO SCH (09:45)
[2021-12-24] MEDS: Magic Mouthwash 10 ML UD Cup PO SCH ×3 (09:45→18:53)
[2021-12-24] MEDS: metroNIDAZOLE 500 MG TABLET PO SCH ×3 (09:45→21:09)
[2021-12-24] MEDS: Lactobacillus 1 EACH CAP.SPRINK PO SCH ×2 (09:46→21:09)
[2021-12-24] MEDS: Nicotine 21 MG PATCH.TD24 TD SCH (09:46)
[2021-12-24] MEDS: Docusate Oral Soln 100 MG/10 ML UDC PO SCH ×2 (09:46→21:09)
[2021-12-24] MEDS: Chlorhexidine Rinse 15 ML MOUTHWASH MM SCH ×2 (09:46→21:09)
[2021-12-24] MEDS: Norepinephrine 4 MG/254 ML IV.SOLN IVC SCH ×2 (09:47→23:15)
[2021-12-24] MEDS: levoFLOXacin 500 MG TABLET PO SCH (15:56)
[2021-12-24] MEDS: *HR* OxyCODONE Oral Soln 5 MG/5 ML UD.LIQ PO PRN ×2 (15:56→21:31)
[2021-12-24] MEDS: ceFAZolin 1,000 MG in Water for inj. (sterile) 10 ML IVP SCH (17:57)
[2021-12-24 18:05] LABS: Hematocrit 30.3 % (37.5-50.1)
[2021-12-24 18:06] LABS: Hemoglobin 9.7 g/dL (12.9-16.9)
[2021-12-24] MEDS ORDERED: *HR* Heparin 5,000 UNIT/ML VIAL ONE (20:07)
[2021-12-24] MEDS: *HR* Heparin 5,000 UNIT/ML VIAL IVP PRN (21:10)
[2021-12-24] MEDS: Ondansetron 4 MG/2 ML VIAL IVP PRN (21:31)
[2021-12-25 03:27] LABS: Basophils % 0.2 %; Eosinophils % 0.3 %; Hemoglobin 8.4 g/dL (12.9-16.9); Immature Granulocytes % 0.5 % (0-4); Lymphocytes # 1.1 K/mcL (0.6-4.6); Lymphocytes % 9.4 %; Mean Corpuscular HGB Conc 32.3 g/dL (31.6-35.5); Mean Corpuscular Hemoglobin 31.1 pg (28.0-33.3); Mean Corpuscular Volume 96.3 fL (83.0-100.0); Mean Platelet Volume 11.3 fL (9.4-12.4); Monocytes # 0.5 K/mcL (0.0-1.3); Monocytes % 4.3 %; Platelet Count 232 K/mcL (140-400); Red Cell Distribution Width 16.9 % (11.5-14.5); Segmented Neutrophils % 85.3 %; White Blood Count 11.7 K/mcL (4.3-11.1)
[2021-12-25 03:35] LABS: VBG Ionized Calcium 1.14 mmol/L (1.15-1.35)
[2021-12-25] MEDS: Dexmedetomidine HCl 400 MCG/100 ML MLS IVC SCH ×3 (03:36→18:15)
[2021-12-25 03:38] LABS: INR 1.4
[2021-12-25 03:40] LABS: Activated Partial Thrombo Time 35.6 Seconds (26.0-36.0)
[2021-12-25 03:48] LABS: Alanine Aminotransferase < 3 Units/L (7-52); Albumin 3.1 g/dL (3.5-5.7); Albumin/Globulin Ratio 0.8 (1.1-2.2); Alkaline Phosphatase 146 Units/L (34-104); Aspartate Amino Transferase 40 Units/L (13-39); BUN/Creatinine Ratio 11 (6-26); Bilirubin,Direct 1.3 mg/dL (0.0-0.2); Bilirubin,Indirect 1.1 mg/dL (0.0-1.0); Bilirubin,Total 2.4 mg/dL (0.3-1.0); Blood Urea Nitrogen 15 mg/dL (6-20); Calcium 7.9 mg/dL (8.6-10.3); Carbon Dioxide 26 mEq/L (23-29); Chloride 100 mEq/L (98-107); Globulin 3.7 g/dL (2.4-3.5); Glucose 108 mg/dL (70-105); Osmolality,Calculated 275 (280-300); Phosphorous 1.5 mg/dL (2.7-4.5); Potassium 4.1 mEq/L (3.5-5.1); Sodium 132 mEq/L (136-145); Total Protein 6.8 g/dL (6.4-8.9); eGFR For African Americans > 60 (> 60); eGFR For Non-African Americans 57 (> 60)
[2021-12-25] MEDS: FentaNYL (PF) 1,000 MCG/100 ML IV.SOLN IVC SCH (04:23)
[2021-12-25] MEDS: Ipratropium/Albuterol Neb 3 ML IH SCH ×6 (04:26→23:40)
[2021-12-25] MEDS: Lactobacillus 1 EACH CAP.SPRINK PO SCH ×2 (09:59→21:52)
[2021-12-25] MEDS: Aspirin 81 MG TAB.CHEW PO SCH (09:59)
[2021-12-25] MEDS: Chlorhexidine Rinse 15 ML MOUTHWASH MM SCH ×2 (09:59→21:52)
[2021-12-25] MEDS: metroNIDAZOLE 500 MG TABLET PO SCH ×3 (09:59→21:52)
[2021-12-25] MEDS: Docusate Oral Soln 100 MG/10 ML UDC PO SCH ×2 (09:59→22:01)
[2021-12-25] MEDS: Magic Mouthwash 10 ML UD Cup PO SCH ×3 (11:28→18:03)
[2021-12-25] MEDS: Nicotine 21 MG PATCH.TD24 TD SCH (11:28)
[2021-12-25] MEDS: *HR* OxyCODONE Oral Soln 5 MG/5 ML UD.LIQ PO PRN ×2 (14:53→18:44)
[2021-12-25] MEDS: ceFAZolin 1,000 MG in Water for inj. (sterile) 10 ML IVP SCH (19:47)
[2021-12-26] MEDS: Ipratropium/Albuterol Neb 3 ML IH SCH ×5 (03:24→20:37)
[2021-12-26] MEDS: Norepinephrine 4 MG/254 ML IV.SOLN IVC SCH ×2 (04:19→20:03)
[2021-12-26 04:22] LABS: Basophils % 0.1 %; Eosinophils % 0.1 %; Hematocrit 25.7 % (37.5-50.1); Hemoglobin 8.2 g/dL (12.9-16.9); Immature Granulocytes % 0.7 % (0-4); Lymphocytes # 1.6 K/mcL (0.6-4.6); Lymphocytes % 11.1 %; Mean Corpuscular HGB Conc 31.9 g/dL (31.6-35.5); Mean Corpuscular Hemoglobin 30.4 pg (28.0-33.3); Mean Corpuscular Volume 95.2 fL (83.0-100.0); Mean Platelet Volume 11.1 fL (9.4-12.4); Monocytes # 0.8 K/mcL (0.0-1.3); Monocytes % 5.5 %; Neutrophils # 11.6 K/mcL (1.6-8.9); Platelet Count 260 K/mcL (140-400); Red Cell Distribution Width 16.3 % (11.5-14.5); Segmented Neutrophils % 82.5 %; White Blood Count 14.1 K/mcL (4.3-11.1)
[2021-12-26 04:31] LABS: INR 1.4; Prothrombin Time 15.6 Seconds (9.4-12.1)
[2021-12-26 04:33] LABS: Activated Partial Thrombo Time 37.7 Seconds (26.0-36.0)
[2021-12-26 04:35] LABS: VBG Ionized Calcium 1.12 mmol/L (1.15-1.35)
[2021-12-26 05:29] LABS: Alanine Aminotransferase < 3 Units/L (7-52); Albumin/Globulin Ratio 0.8 (1.1-2.2); Alkaline Phosphatase 151 Units/L (34-104); Aspartate Amino Transferase 36 Units/L (13-39); BUN/Creatinine Ratio 14 (6-26); Bilirubin,Direct 1.2 mg/dL (0.0-0.2); Bilirubin,Indirect 1.1 mg/dL (0.0-1.0); Bilirubin,Total 2.3 mg/dL (0.3-1.0); Blood Urea Nitrogen 27 mg/dL (6-20); Carbon Dioxide 24 mEq/L (23-29); Chloride 98 mEq/L (98-107); Globulin 3.8 g/dL (2.4-3.5); Glucose 106 mg/dL (70-105); Magnesium 1.8 mg/dL (1.6-2.6); Osmolality,Calculated 278 (280-300); Phosphorous 3.4 mg/dL (2.7-4.5); Potassium 4.3 mEq/L (3.5-5.1); Sodium 131 mEq/L (136-145); Total Protein 6.8 g/dL (6.4-8.9); eGFR For African Americans 49 (> 60); eGFR For Non-African Americans 41 (> 60)
[2021-12-26] MEDS: Lactobacillus 1 EACH CAP.SPRINK PO SCH ×2 (08:32→22:14)
[2021-12-26] MEDS: Aspirin 81 MG TAB.CHEW PO SCH (08:32)
[2021-12-26] MEDS: Docusate Oral Soln 100 MG/10 ML UDC PO SCH ×2 (08:32→22:13)
[2021-12-26] MEDS: Nicotine 21 MG PATCH.TD24 TD SCH (08:32)
[2021-12-26] MEDS: metroNIDAZOLE 500 MG TABLET PO SCH ×3 (08:32→22:14)
[2021-12-26] MEDS: Magic Mouthwash 10 ML UD Cup PO SCH ×3 (08:33→15:03)
[2021-12-26] MEDS: Chlorhexidine Rinse 15 ML MOUTHWASH MM SCH ×2 (08:33→22:14)
[2021-12-26] MEDS: *HR* OxyCODONE Oral Soln 5 MG/5 ML UD.LIQ PO PRN ×4 (08:40→22:13)
[2021-12-26] MEDS: Dexmedetomidine HCl 400 MCG/100 ML MLS IVC SCH ×2 (08:47→23:40)
[2021-12-26] MEDS: Scopolamine Patch 1.5 MG PATCH.TD72 TD SCH (10:59)
[2021-12-26] MEDS: levoFLOXacin 500 MG TABLET PO SCH (15:06)
[2021-12-26] MEDS: ceFAZolin 1,000 MG in Water for inj. (sterile) 10 ML IVP SCH (16:58)
[2021-12-26] MEDS ORDERED: *HR* OxyCODONE Oral Soln 5 MG/5 ML UD.LIQ GTUBE ONE (17:32)
[2021-12-26] MEDS ORDERED: Calcium Gluconate 1gm/50mL 1 GM/50 ML BAG IVPB PRN (18:54)
[2021-12-26] MEDS ORDERED: Perflutren Lipid Microsphere 1.3 ML in 0.9 % Sodium Chloride 8.7 ML IVP PRN (18:54)
[2021-12-26] MEDS ORDERED: Melatonin 3 MG TABLET PO PRN (18:54)
[2021-12-26] MEDS ORDERED: *HR* Dextrose 50 % in Water (Syg) 50 ML SYRINGE IVP PRN (18:54)
[2021-12-26] MEDS ORDERED: Potassium Chloride Elixir 20 MEQ/15 ML UDC PO PRN (18:54)
[2021-12-26] MEDS ORDERED: Dextrose 4 GM Chewable Tablets PO PRN ×2 (18:54)
[2021-12-26] MEDS ORDERED: Ipratropium/Albuterol Neb 3 ML IH PRN (18:54)
[2021-12-26] MEDS ORDERED: Naloxone 0.4 MG/ML INJ IVP PRN (18:54)
[2021-12-26] MEDS ORDERED: Desitin (Zinc Oxide) Max 57 GM TUBE TP PRN (18:54)
[2021-12-26] MEDS ORDERED: Acetaminophen 325 MG TABLET PO PRN (18:54)
[2021-12-26] MEDS: Midazolam HCl 50 MG/50 ML IV.SOLN IVC SCH (20:03)
[2021-12-26] MEDS: FentaNYL (PF) 1,000 MCG/100 ML IV.SOLN IVC SCH (20:03)
[2021-12-27] MEDS: Ipratropium/Albuterol Neb 3 ML IH SCH ×7 (00:45→23:37)
[2021-12-27] MEDS: *HR* OxyCODONE Oral Soln 5 MG/5 ML UD.LIQ PO PRN ×4 (03:36→23:47)
[2021-12-27 06:17] LABS: Basophils % 0.1 %; Eosinophils # 0.1 K/mcL (0.0-0.6); Eosinophils % 0.6 %; Hematocrit 23.7 % (37.5-50.1); Hemoglobin 7.7 g/dL (12.9-16.9); Immature Granulocytes % 0.5 % (0-4); Lymphocytes # 1.2 K/mcL (0.6-4.6); Lymphocytes % 9.4 %; Mean Corpuscular HGB Conc 32.5 g/dL (31.6-35.5); Mean Corpuscular Hemoglobin 30.4 pg (28.0-33.3); Mean Corpuscular Volume 93.7 fL (83.0-100.0); Mean Platelet Volume 11.1 fL (9.4-12.4); Monocytes # 0.8 K/mcL (0.0-1.3); Monocytes % 5.8 %; Neutrophils # 10.7 K/mcL (1.6-8.9); Platelet Count 240 K/mcL (140-400); Red Blood Count 2.53 M/mcL (4.19-5.50); Red Cell Distribution Width 15.4 % (11.5-14.5); Segmented Neutrophils % 83.6 %; White Blood Count 12.8 K/mcL (4.3-11.1)
[2021-12-27 06:21] LABS: VBG Ionized Calcium 1.13 mmol/L (1.15-1.35)
[2021-12-27 06:41] LABS: Potassium 4.7 mEq/L (3.5-5.1)
[2021-12-27 06:42] LABS: Magnesium 1.9 mg/dL (1.6-2.6); Phosphorous 4.4 mg/dL (2.7-4.5)
[2021-12-27] MEDS ORDERED: 0.9 % Sodium Chloride 250 ML IVC PRN (08:19)
[2021-12-27] MEDS ORDERED: *HR* Heparin 10,000 UNIT/10 ML VIAL IV PRN ×2 (08:19)
[2021-12-27] MEDS ORDERED: 0.9 % Sodium Chloride 1,000 ML PRIME SCH (08:30)
[2021-12-27] MEDS: Magic Mouthwash 10 ML UD Cup PO SCH ×3 (09:42→16:56)
[2021-12-27] MEDS: Chlorhexidine Rinse 15 ML MOUTHWASH MM SCH ×2 (09:42→20:30)
[2021-12-27] MEDS ORDERED: *HR* HYDROmorphone (PF) 1 MG/ML SYRINGE IVP ONE (13:44)
[2021-12-27] MEDS: metroNIDAZOLE 500 MG TABLET PO SCH ×3 (13:58→20:31)
[2021-12-27] MEDS: Docusate Oral Soln 100 MG/10 ML UDC PO SCH ×3 (14:01→20:31)
[2021-12-27] MEDS: Lactobacillus 1 EACH CAP.SPRINK PO SCH ×2 (14:02→20:54)
[2021-12-27] MEDS: Aspirin 81 MG TAB.CHEW PO SCH (14:03)
[2021-12-27] MEDS: Nicotine 21 MG PATCH.TD24 TD SCH (14:04)
[2021-12-27] MEDS ORDERED: *HR* FentaNYL (PF) 100 MCG/2 ML VIAL IVP ONE (16:31)
[2021-12-27] MEDS: Norepinephrine 4 MG/254 ML IV.SOLN IVC SCH (16:43)
[2021-12-27] MEDS: FentaNYL (PF) 1,000 MCG/100 ML IV.SOLN IVC SCH (16:43)
[2021-12-27] MEDS: Dexmedetomidine HCl 400 MCG/100 ML MLS IVC SCH (16:44)
[2021-12-27] MEDS: Midazolam HCl 50 MG/50 ML IV.SOLN IVC SCH (16:44)
[2021-12-27] MEDS: ceFAZolin 1,000 MG in Water for inj. (sterile) 10 ML IVP SCH (16:55)
[2021-12-27 17:57] LABS: Red Blood Count 2.89 M/mcL (4.19-5.50); Red Cell Distribution Width 15.4 % (11.5-14.5)
[2021-12-27 17:59] LABS: Hematocrit 26.7 % (37.5-50.1); Hemoglobin 8.8 g/dL (12.9-16.9); Mean Corpuscular Hemoglobin 30.4 pg (28.0-33.3); Mean Corpuscular Volume 92.4 fL (83.0-100.0); Mean Platelet Volume 11.1 fL (9.4-12.4); Platelet Count 303 K/mcL (140-400); White Blood Count 16.1 K/mcL (4.3-11.1)
[2021-12-27 18:09] LABS: INR 1.3; Prothrombin Time 14.7 Seconds (9.4-12.1)
[2021-12-27 18:11] LABS: Activated Partial Thrombo Time 34.5 Seconds (26.0-36.0)
[2021-12-27] MEDS: Ondansetron 4 MG/2 ML VIAL IVP PRN (18:46)
[2021-12-27 23:56] LABS: Hematocrit 25.2 % (37.5-50.1); Hemoglobin 8.4 g/dL (12.9-16.9)
[2021-12-28] MEDS: Ondansetron 4 MG/2 ML VIAL IVP PRN (00:14)
[2021-12-28 02:44] LABS: Basophils % 0.2 %; Eosinophils # 0.1 K/mcL (0.0-0.6); Eosinophils % 0.4 %; Hematocrit 25.6 % (37.5-50.1); Hemoglobin 8.4 g/dL (12.9-16.9); Immature Granulocytes % 0.6 % (0-4); Lymphocytes # 1.3 K/mcL (0.6-4.6); Lymphocytes % 8.1 %; Mean Corpuscular HGB Conc 32.8 g/dL (31.6-35.5); Mean Corpuscular Hemoglobin 30.5 pg (28.0-33.3); Mean Corpuscular Volume 93.1 fL (83.0-100.0); Mean Platelet Volume 10.7 fL (9.4-12.4); Monocytes # 1.2 K/mcL (0.0-1.3); Monocytes % 7.2 %; Neutrophils # 13.3 K/mcL (1.6-8.9); Platelet Count 303 K/mcL (140-400); Red Blood Count 2.75 M/mcL (4.19-5.50); Red Cell Distribution Width 15.6 % (11.5-14.5); Segmented Neutrophils % 83.5 %
[2021-12-28 02:47] LABS: VBG Ionized Calcium 1.15 mmol/L (1.15-1.35)
[2021-12-28] MEDS: Ipratropium/Albuterol Neb 3 ML IH SCH ×4 (03:35→15:43)
[2021-12-28] MEDS: *HR* OxyCODONE Oral Soln 5 MG/5 ML UD.LIQ PO PRN ×3 (03:40→17:03)
[2021-12-28 03:41] LABS: Calcium 8.3 mg/dL (8.6-10.3); Potassium 3.9 mEq/L (3.5-5.1)
[2021-12-28 03:46] LABS: Magnesium 1.7 mg/dL (1.6-2.6); Phosphorous 3.4 mg/dL (2.7-4.5)
[2021-12-28] MEDS: Chlorhexidine Rinse 15 ML MOUTHWASH MM SCH (09:02)
[2021-12-28] MEDS: Magic Mouthwash 10 ML UD Cup PO SCH ×3 (09:02→17:03)
[2021-12-28] MEDS: Aspirin 81 MG TAB.CHEW PO SCH (09:05)
[2021-12-28] MEDS: metroNIDAZOLE 500 MG TABLET PO SCH ×2 (09:05→17:01)
[2021-12-28] MEDS: Lactobacillus 1 EACH CAP.SPRINK PO SCH (09:06)
[2021-12-28] MEDS: Docusate Oral Soln 100 MG/10 ML UDC PO SCH (09:07)
[2021-12-28] MEDS: Nicotine 21 MG PATCH.TD24 TD SCH (09:07)
[2021-12-28 11:26] VITALS: BP 161/85; TEMP 98.1
[2021-12-28] MEDS ORDERED: levoFLOXacin 500 MG TABLET PO SCH (15:00)
[2021-12-28 15:16] LABS: Influenza A PCR Negative (Negative); Influenza B PCR Negative (Negative); Resp. Syncytial Virus PCR Negative (Negative); SARS-CoV-2 by PCR (In House) Negative (Negative)
[2021-12-28 16:02] VITALS: O2SAT 98
[2021-12-28] MEDS: ceFAZolin 1,000 MG in Water for inj. (sterile) 10 ML IVP SCH (17:02)
[2021-12-29] MEDS ORDERED: Scopolamine Patch 1.5 MG PATCH.TD72 TD SCH (11:45)
== END 2021-12-28 17:55 | disposition home or self-care (01) | DRG 4 ==
LOC: EMEROOARM 00:05 → 2NNU 00:05 → SUATTDRO 03:38 → 2NNU 04:27 → 2ANU 11-21 14:48 → ICNU 11-24 23:58 → 2NNU 12-19 22:46 → ICNU 12-21 17:26 → 2NNU 12-26 19:31
PROVIDERS: ADMIT Internal Medicine; ATTEND Pediatrics